=== PATIENT | female | born 1970 | race American Indian/Alaskan Native ===

== ENCOUNTER 2017-05-12 00:37 | Inpatient (IN) | payer MEDICAID ==
[2017-05-12 00:37] VITALS: BMI 40.7
--- NOTE | 2017-05-12 00:48 | C.PDOC ---
History Of Present Illness The patient presents to the ED for evaluation of chest pain which began while she was reading on her phone earlier today. Patient took one 325mg tablet of Aspirin prior to arrival. She is able to speak in complete sentences and denies shortness of breath, palpitations, nausea, vomiting, extremity numbness/ weakness at this time. Time Seen by Provider: 05/12/17 00:48 History Per: Patient History/Exam Limitations: no limitations Onset/Duration Of Symptoms: Hrs Current Symptoms Are (Timing): Still Present Severity: Moderate Pain Scale Rating Of: 3 Quality: Dull, Aching, "Pain" Associated Symptoms: denies: Nausea Modifying Factors: None Exacerbating Factors: None Alleviating Factors: None Recent travel outside of the [place]: No Additional History Per: Patient Past Medical History Reviewed: Historical Data, Nursing Documentation, Vital Signs Vital Signs: Last Vital Signs Temp 98.2 F 05/12/17 00:54 Pulse 98 H 05/12/17 01:00 Resp 20 05/12/17 00:54 BP 135/95 H 05/12/17 01:00 Pulse Ox 98 05/12/17 01:51 - Medical History PMH: Anxiety, Arthritis (knees), Bipolar Disorder (???), COPD, Depression, Deep Vein Thrombosis (VC filter 06/25/2014), HIV, HTN, Hyperthyroidism (partial thyroidectomy), Migraine Denies: Chronic Kidney Disease Surgical History: Cholecystectomy - [facility] Procedures PLICATION OF VENA CAVA (06/26/14) Family History: States: No Known Family Hx - Social History Hx Tobacco Use: Yes Hx Alcohol Use: No Hx Substance Use: No - Immunization History Hx Tetanus Toxoid Vaccination: No Hx Influenza Vaccination: Yes Hx Pneumococcal Vaccination: No Review Of Systems Constitutional: Negative for: Fever, Chills Eyes: Negative for: Vision Change ENT: Negative for: Throat Pain Cardiovascular: Positive for: Chest Pain. Negative for: Palpitations Respiratory: Negative for: Cough, Shortness of Breath Gastrointestinal: Negative for: Nausea, Vomiting Genitourinary: Negative for: Dysuria Skin: Negative for: Rash, Lesions, Jaundice, Bruising Neurological: Negative for: Weakness, Numbness Psych: Negative for: Anxiety Physical Exam - Physical Exam Appears: Non-toxic, Other (in moderate distress ) Skin: Warm, Dry Head: Normacephalic Eye(s): bilateral: Normal Inspection Oral Mucosa: Moist Neck: Supple Chest: Symmetrical, No Deformity, No Tenderness Cardiovascular: Rhythm Regular, No Murmur Respiratory: No Rales, No Rhonchi, No Wheezing, Other (speaking in complete sentences ) Gastrointestinal/Abdominal: Soft, No Tenderness, No Guarding, No Rebound, Other (obese) Back: Normal Inspection Extremity: Normal ROM, Pedal Edema (trace ), Capillary Refill (less than 2 seconds ) Extremity: Bilateral: Atraumatic Pulses: Left Dorsalis Pedis: Normal, Right Dorsalis Pedis: Normal Neurological/Psych: Oriented x3 Gait: Steady ED Course And Treatment - Laboratory Results Result Diagrams: 05/12/17 01:02 05/12/17 01:00 ECG: Interpreted By Me, Viewed By Me ECG Rhythm: Sinus Rhythm (93), Nonspecific Changes O2 Sat by Pulse Oximetry: 98 (on RA) Pulse Ox Interpretation: Normal - Radiology CXR: Interpreted by Me, Viewed By Me CXR Interpretation: No: Infiltrates, Fracture, Pnemothorax Progress Note: Bloodwork, CXR, EKG, UA ordered and reviewed. Aspirin PO administered. Disposition Discussed With : Emilio Barney [facility] took [facility] care at 1;54 AM Counseled Patient/Family Regarding: Studies Performed, Diagnosis - Disposition Disposition: HOSPITALIZED Disposition Time: 00:48 Condition: FAIR - POA Present On Arrival: Poor Glycemic Control - Clinical Impression Clinical Impression: Chest pain - Scribe Statement The provider has reviewed the documentation as recorded by the Scribe (Rossy Carranza) Provider Attestation: All medical record entries made by the Scribe were at my direction and personally dictated by me. I have reviewed the chart and agree that the record accurately reflects my personal performance of the history, physical exam, medical decision making, and the department course for this patient. I have also personally directed, reviewed, and agree with the discharge instructions and disposition. Decision To Admit - Pt Status Changed To: Hospital Disposition Of: Inpatient - Admit Certification Admit to Inpatient:: After my assessment, the patient will require hospitalization for at least two midnights. This is because of the severity of symptoms shown, intensity of services needed, and/or the medical risk in this patient being treated as an outpatient. - InPatient: Physician Admission Certification: I certify that this patient requires 2 or more midnights of care for the following reason:: After my assessment, the patient will require hospitalization for at least two midnights. This is because of the severity of symptoms shown, intensity of services needed, and/or the medical risk in this patient being treated as an outpatient. - . Bed Request Type: Telemetry Admitting Physician: Emilio Barney Patient Diagnosis: Chest pain
[2017-05-12] MEDS ORDERED: Aspirin 325 mg EC Tablets PO STA (00:49)
[2017-05-12 01:12] LABS: INR 1.1
[2017-05-12 01:17] LABS: BASO # 0.1 K/uL (0.0-0.2); BASO % 1.3 % (0.0-2.0); EOS # 0.1 K/uL (0.0-0.7); EOS % 1.3 % (0.0-4.0); LYMPH # 1.3 K/uL (1.0-4.3); LYMPH % 22.3 % (20.0-40.0); MEAN CORPUSCULAR HEMOGLOBIN 22.4 pg (27.0-31.0); MEAN PLATELET VOLUME 8.6 fL (7.2-11.7); MONO # 0.4 K/uL (0.0-0.8); MONO % 7.2 % (0.0-10.0); NEUT # 3.9 K/uL (1.8-7.0); NEUT % 67.9 % (50.0-75.0); NRBC % 0.6 % (0.0-2.0); RBC 5.06 Mil/uL (3.80-5.20); RED CELL DISTRIBUTION WIDTH 26.1 % (11.5-14.5); WHITE BLOOD COUNT 5.8 K/uL (4.8-10.8)
[2017-05-12 01:18] LABS: ALBUMIN 3.3 g/dL (3.5-5.0); ALT/SGPT 22 U/L (9-52); AST/SGOT 20 U/L (14-36); BLOOD UREA NITROGEN 12 mg/dL (7-17); CALCIUM 8.9 mg/dl (8.6-10.4); GFR AFRICAN-AMERICAN > 60; GFR NON-AFRICAN AMERICAN > 60
[2017-05-12 01:18] LABS: HEMOGLOBIN 11.3 g/dL (11.0-16.0); MEAN CELL VOLUME 72.3 fL (81.0-99.0)
[2017-05-12 01:29] LABS: B-TYPE NATRIURETIC PEPTIDE 201 pg/mL (0-450)
[2017-05-12 01:30] LABS: ALB/GLOB RATIO 0.8 (1.0-2.1)
[2017-05-12 06:17] LABS: HCG,QUALITATIVE URINE NEGATIVE (NEGATIVE); SQUAMOUS EPITHIAL 1 /hpf (0-5); URINE BACTERIA MOD (<OCC); URINE BILIRUBIN NEGATIVE (NEGATIVE); URINE BLOOD NEGATIVE (NEGATIVE); URINE CLARITY Hazy (Clear); URINE COLOR Amber (YELLOW); URINE GLUCOSE (UA) NORMAL (Normal); URINE LEUKOCYTE ESTERASE NEG Leu/uL (Negative); URINE NITRATE NEGATIVE (NEGATIVE); URINE PROTEIN 3+ mg/dL (NEGATIVE)
--- NOTE | 2017-05-12 11:48 | RAD ---
HISTORY: chest pain COMPARISON: Chest x-ray performed 06/25/14 TECHNIQUE: Chest, one view. FINDINGS: Examination limited by habitus and hypoinflation. LUNGS: Moderate interstitial prominence may reflect infection or edema. Question small bilateral pleural effusions versus soft tissue attenuation. No definite pneumothorax. Please note that chest x-ray has limited sensitivity for the detection of pulmonary masses. CARDIOVASCULAR: Cardiomegaly. OSSEOUS STRUCTURES: No acute osseous abnormality is detected. VISUALIZED UPPER ABDOMEN: Unremarkable. OTHER FINDINGS: None. IMPRESSION: Moderate interstitial prominence may reflect infection or edema. Question small bilateral pleural effusions versus soft tissue attenuation. Cardiomegaly.
[2017-05-12] MEDS: Odefsey 200mg/25mg/25mg PO SCH (12:00)
[2017-05-12] MEDS ORDERED: Odefsey 200mg/25mg/25mg PO SCH (12:00)
[2017-05-12 12:53] LABS: CK-MB 1.82 ng/mL (0.0-3.38)
[2017-05-12 13:03] LABS: TROPONIN I 0.498 ng/mL (0.00-0.120)
--- NOTE | 2017-05-12 15:40 | CP.PCM.PN ---
Subjective - Date & Time of Evaluation Date of Evaluation: 05/12/17 Time of Evaluation: 15:38 - Subjective Subjective: PT SEEN IN ICU BED SLEEPING, AROUSABLE. NO C/O CP OR SOB. OOB TO CHAIR AND COMFORTABLE. NOTIFIED DR. JURADO OF + [facility] ([facility]; FIRST [facility]G). CONSULT WITH DR. CANO REQUESTED. I NOTIFIED DR. CANO AND HE IS AWARE; WILL SEE PT. THIRD PRISCILA ORDERED FOR THIS EVENING. NO FURTHER ORDERS. PT TO BE SEEN BY DR. JURADO DURING HIS ROUNDS. Objective - Vital Signs/Intake and Output Vital Signs (last 24 hours): Temp Pulse Resp BP Pulse Ox 98.8 F 86 20 125/85 97 05/12/17 06:15 05/12/17 10:00 05/12/17 06:15 05/12/17 06:15 05/12/17 05:28 Intake and Output: 05/12/17 05/12/17 06:59 18:59 Intake Total 0 Output Total 0 Balance 0 - Medications Medications: Current Medications Heparin Sodium (Porcine) (Heparin) 5,000 units SC Q12 [facility] Last Admin: 05/12/17 10:52 Dose: 5,000 units Home Med (Patient's Own Medication) 1 tab PO DAILY [facility] Last Admin: 05/12/17 12:00 Dose: 1 tab - Labs Labs: 05/12/17 01:02 05/12/17 01:00 PT 12.0 SECONDS (9.7-12.2) 05/12/17 01:02 INR 1.1 05/12/17 01:02 APTT 24 SECONDS (21-34) 05/12/17 01:02
[2017-05-12 16:02] LABS: CK-MB 1.84 ng/mL (0.0-3.38); TROPONIN I 0.6 ng/mL (0.00-0.120)
--- NOTE | 2017-05-12 20:57 | CP.PCM.HP ---
History of Present Illness - History of Present Illness History of Present Illness: CC: Chest pain HPI: Pt is a 47 yo female who presented to ED by ambulance transport. Pt called 911 and was transported to [facility] for mid-sternal chest pain that patient reports felt like something sitting on her chest. This was also accompanied by numbness and tingling down the left arm, but also felt on the R arm. Pt says the symptom started upon lying down to sleep for the night, when she was using her phone checking her messages. Pt's decided to call 911, and said that the pain did not subside until after the EMS were there and she had been given a dose of aspirin to chew. Pt subsequently transported by ambulance to [facility] for evaluation. Present on Admission - Present on Admission Any Indicators Present on Admission: Yes History of DVT/PE: Yes History of Uncontrolled Diabetes: No Urinary Catheter: No Decubitus Ulcer Present: No History Surgical Site Infection Following: None Review of Systems - Review of Systems Systems not reviewed;Unavailable: Acuity of Condition - Constitutional Constitutional: absent: As Per HPI, Anorexia, Chills, Daytime Sleepiness, Excessive Sweating, Fatigue, Fever, Frequent Falls, Headache, Increased Appetite , Lethargy, Malaise, Night Sweats, Snoring, Sleep Apnea, Weight Gain, Weight Loss, Weakness, Other - EENT Eyes: absent: As Per HPI, Blind Spots, Blurred Vision, Change in Vision, Decreased Night Vision, Diplopia, Discharge, Dry Eye, Exophthalmos, Floaters, Irritation, Itchy Eyes, Loss of Peripheral Vision, Pain, Photophobia, Requires Corrective Lenses, Sees Flashes, Spots in Vision, Tunnel Vision, Other Visual Disturbances, Loss of Vision, Other Ears: absent: As Per HPI, Decreased Hearing, Ear Discharge, Ear Pain, Tinnitus, Abnormal Hearing, Disequilibrium, Dizziness, Other Nose/Mouth/Throat: absent: As Per HPI, Epistaxis, Nasal Congestion, Nasal Discharge, Nasal Obstruction, Nasal Trauma, Nose Pain, Post Nasal Drip, Sinus Pain, Sinus Pressure, Bleeding Gums, Change in Voice, Dental Pain, Dry Mouth, Dysphagia, Halitosis, Hoarsness, Lip Swelling, Mouth Lesions, Mouth Pain, Odynophagia, Sore Throat, Throat Swelling, Tongue Swelling, Facial Pain, Neck Pain, Neck Mass, Other - Breasts Breasts: absent: As Per HPI, Change in Shape, Mass, Pain, Nipple Discharge, Nipple Inversion, Skin Changes, Swelling, Other - Cardiovascular Cardiovascular: absent: As Per HPI, Acrocyanosis, Chest Pain, Chest Pain at Rest , Chest Pain with Activity, Claudication, Diaphoresis, Dyspnea, Dyspnea on Exertion, Edema, Irregular Heart Rhythm, Pain Radiating to Arm/Neck/Jaw, Leg Edema, Leg Ulcers, Lightheadedness, Orthopnea, Palpitations, Paroxysmal Nocturnal Dyspnea, Pedal Edema, Radiating Pain, Rapid Heart Rate, Slow Heart Rate, Syncope, Other - Respiratory Respiratory: absent: As Per HPI, Cough, Dyspnea, Hemoptysis, Dyspnea on Exertion , Wheezing, Snoring, Stridor, Pain on Inspiration, Chest Congestion, Excessive Mucous Production, Change in Mucous Color, Pain with Coughing, Other - Gastrointestinal Gastrointestinal: absent: As Per HPI, Abdominal Pain, Belching, Bloating, Change in Bowel Habits, Change in Stool Character, Coffee Ground Emesis, Constipation, Cramping, Diarrhea, Dyspepsia, Dysphagia, Early Satiety, Excessive Flatus, Fecal Incontinence, Heartburn, Hematemesis, Hematochezia, Loose Stools, Melena, Nausea, Odynophagia, Temesmus, Vomiting, Other - Reproductive: Female Reproductive:Female: absent: As Per HPI, Amenorrhea, Amenorrhea/ Control, Currently Menstual, Cycle <21 Days, Cycle >35 Days, Cycle Variable, Menses 1-7 Days, Menses >/= 8 Days, Menses Variable, Cycle > 4 Weeks Between, No Menses for 6 Months, Heavy Menses, Light Menses, Normal Menses, Spotting Between Cycles , S/P Hysterectomy, Menopausal, Post Menopausal, Premenarche, Abnormal Vaginal Bleeding, Dysmenorrhea, Dyspareunia, Genital Lesions, Genital Pruritis, Pelvic Pain, Prolapse Symptoms, Sexual Dysfunction, Vaginal Discharge, Vaginal Dryness , Vaginal Odor, Vaginal Pruritis, Other - Menstruation Menstruation: absent: As Per HPI, Amenorrhea, Amenorrhea/ Control, Currently Menstual, Cycle <21 Days, Cycle >35 Days, Cycle Variable, Menses 1-7 Days, Menses >/= 8 Days, Menses Variable, Cycle > 4 Weeks Between, No Menses for 6 Months, Heavy Menses, Light Menses, Normal Menses, Spotting Between Cycles , S/P Hysterectomy, Menopausal, Post Menopausal, Premenarche, Abnormal Vaginal Bleeding, Dysmenorrhea, Other - Musculoskeletal Musculoskeletal: absent: As Per HPI, Abnormal Gait, Arthralgias, Atrophy, Back Pain, Deformity, Joint Swelling, Limited Range of Motion, Loss of Height, Muscle Cramps, Muscle Weakness, Myalgias, Neck Pain, Numbness, Radiating Pain into Limb, Stiffness, Tingling, Other - Integumentary Integumentary: absent: As Per HPI, Acne, Alopecia, Bleeding Lesions, Change in Hair, Change in Nails, Change in Pigmentation, Changing Lesions, Dry Skin, Erythema, Furuncle, Hirsutism, Lesions, New Lesions, Non-Healing Lesions, Photosensitivity, Pruritus, Rash, Skin Pain, Skin Ulcer, Sores, Striae, Swelling , Unusual Bruising, Wounds, Jaundice, Other - Neurological Neurological: absent: As Per HPI, Abnormal Gait, Abnormal Hearing, Abnormal Movements, Abnormal Speech, Behavioral Changes, Burning Sensations, Confusion, Convulsions, Disequilibrium, Dizziness, Numbness, Focal Weakness, Frequent Falls , Headaches, Lack of Coordination, Loss of Vision, Memory Loss, Paresthesias, Radicular Pain, Restless Legs, Sensory Deficit, Syncope, Tingling, Tremor, Vertigo, Weakness, Other Visual Disturbances, Other - Psychiatric Psychiatric: absent: As Per HPI, Abnormal Sleep Pattern, Anhedonia, Anxiety, Auditory Hallucinations, Behavioral Changes, Change in Appetite, Change in Libido, Confusion, Depression, Difficulty Concentrating, Hallucinations, Homicidal Ideation, Hopelessness, Irritability, Memory Loss, Mood Swings, Panic Attacks, Paranoia, Suicidal Ideation, Visual Hallucinations, Tactile Hallucinations, Other Additional comments: history of depression Past Patient History - Infectious Disease Hx of Infectious Diseases: None - Tetanus Immunizations Tetanus Immunization: Unknown - Past Medical History & Family History Past Medical History?: Yes - Past Social History Smoking Status: Heavy Smoker > 10 Cigarettes Daily Chewing Tobacco Use: No Cigar Use: No Occupation: disabled, 2ndry to major depression Alcohol: Occasional Drugs: Denies - CARDIAC Hx Cardiac Disorders: Yes Hx Hypertension: Yes - PULMONARY Hx Respiratory Disorders: Yes Hx Chronic Obstructive Pulmonary Disease (COPD): Yes - NEUROLOGICAL Hx Neurological Disorder: Yes Hx Migraine: Yes - HEENT Hx HEENT Problems: No - RENAL Hx Chronic Kidney Disease: No - ENDOCRINE/METABOLIC Hx Endocrine Disorders: Yes Hx Hyperthyroidism: Yes (partial thyroidectomy) - HEMATOLOGICAL/ONCOLOGICAL Hx Blood Disorders: Yes Hx Anemia: Yes Hx Human Immunodeficiency Virus (HIV): Yes - INTEGUMENTARY Hx Dermatological Problems: No - MUSCULOSKELETAL/RHEUMATOLOGICAL Hx Musculoskeletal Disorders: Yes Hx Arthritis: Yes Hx Falls: No - GASTROINTESTINAL Hx Gastrointestinal Disorders: Yes Hx Gastritis: Yes Other/Comment: thrush in mouth, which provided clue to HIV testing - GENITOURINARY/GYNECOLOGICAL Hx Genitourinary Disorders: No - PSYCHIATRIC Hx Psychophysiologic Disorder: Yes Hx Anxiety: Yes Hx Bipolar Disorder: Yes (???) Hx Depression: Yes Hx Substance Use: No - SURGICAL HISTORY Hx Surgeries: Yes Hx Cholecystectomy: Yes - ANESTHESIA Hx Anesthesia: Yes Hx Anesthesia Reactions: No Hx Malignant Hyperthermia: No Meds Allergies/Adverse Reactions: Allergies Allergy/AdvReac Type Severity Reaction Status Date / Time SEA SALT Allergy Intermediate RASH Uncoded 05/12/17 01:03 Physical Exam - Constitutional Appears: No Acute Distress - Head Exam Head Exam: NORMAL INSPECTION - Eye Exam Eye Exam: Normal appearance Additional comments: + periorbital edema at times - ENT Exam ENT Exam: Normal Exam - Neck Exam Neck exam: Positive for: Normal Inspection - Cardiovascular Exam Cardiovascular Exam: RRR - GI/Abdominal Exam GI & Abdominal Exam: Normal Bowel Sounds - Rectal Exam Rectal Exam: Deferred - Extremities Exam Extremities exam: Positive for: normal inspection - Psychiatric Exam Psychiatric exam: Flat Affect, Normal Mood - Skin Skin Exam: Dry, Normal Color, Warm Results - Vital Signs Recent Vital Signs: Last Vital Signs Temp 97.6 F 05/12/17 16:00 Pulse 83 05/12/17 18:00 Resp 18 05/12/17 16:00 BP 125/81 05/12/17 16:00 Pulse Ox 99 05/12/17 16:00 - Labs Result Diagrams: 05/13/17 06:36 05/13/17 06:36 Labs: Laboratory Results - last 24 hr 05/12/17 05/12/17 05/12/17 01:00 01:02 01:02 WBC 5.8 RBC 5.06 Hgb 11.3 D Hct 36.6 MCV 72.3 L D MCH 22.4 L MCHC 31.0 L RDW 26.1 H Plt Count 157 MPV 8.6 Neut % (Auto) 67.9 Lymph % (Auto) 22.3 [place] % (Auto) 7.2 Eos % (Auto) 1.3 Baso % (Auto) 1.3 Neut # 3.9 Lymph # 1.3 [place] # 0.4 Eos # 0.1 Baso # 0.1 PT 12.0 INR 1.1 APTT 24 Sodium 134 Potassium 3.7 Chloride 99 Carbon Dioxide 31 H Anion Gap 8 L BUN 12 Creatinine 0.5 L Est GFR ( Amer) > 60 Est GFR (Non-Af Amer) > 60 Random Glucose 158 H Calcium 8.9 Total Bilirubin 0.4 AST 20 ALT 22 Alkaline Phosphatase 83 Total Creatine Kinase CK-MB (Mass) Troponin I 0.0480 NT-Pro-B Natriuret Pep 201 Total Protein 7.6 Albumin 3.3 L Globulin 4.2 H Albumin/Globulin Ratio 0.8 L Urine Color Urine Clarity Urine pH Ur Specific Bascom Urine Protein Urine Glucose (UA) Urine Ketones Urine Blood Urine Nitrate Urine Bilirubin Urine Urobilinogen Ur Leukocyte Esterase Urine WBC (Auto) Urine RBC (Auto) Ur Squamous Epith Cells Urine Bacteria Urine HCG, Qual 05/12/17 05/12/17 05/12/17 06:03 10:04 15:12 WBC RBC Hgb Hct MCV MCH MCHC RDW Plt Count MPV Neut % (Auto) Lymph % (Auto) [place] % (Auto) Eos % (Auto) Baso % (Auto) Neut # Lymph # [place] # Eos # Baso # PT INR APTT Sodium Potassium Chloride Carbon Dioxide Anion Gap BUN Creatinine Est GFR ( Amer) Est GFR (Non-Af Amer) Random Glucose Calcium Total Bilirubin AST ALT Alkaline Phosphatase Total Creatine Kinase 56 57 CK-MB (Mass) 1.82 1.84 Troponin I 0.4980 H* 0.6000 H* NT-Pro-B Natriuret Pep Total Protein Albumin Globulin Albumin/Globulin Ratio Urine Color Cinthia Urine Clarity Hazy Urine pH 6.0 Ur Specific Bascom 1.017 Urine Protein 3+ H Urine Glucose (UA) Normal Urine Ketones Negative Urine Blood Negative Urine Nitrate Negative Urine Bilirubin Negative Urine Urobilinogen 4.0 H Ur Leukocyte Esterase Neg Urine WBC (Auto) 5 Urine RBC (Auto) < 1 Ur Squamous Epith Cells 1 Urine Bacteria Mod H Urine HCG, Qual Negative Assessment & Plan (1) Chest pain Assessment and Plan: Serial troponins and cardiac enzymes, r/o coronary syndrome Status: Acute (2) Abnormal CXR (chest x-ray) Assessment and Plan: may be occult issue of pulmonary system vs cardiac vs both. Will obtain PA and Lat view as well as Cardio consult above. Status: Acute (3) Deep venous thrombosis of lower extremity Assessment and Plan: histoorical, though non-compliant at times with medication. there have been episodes where pt does not take her anticoagulant Status: Acute (4) HIV (human immunodeficiency virus infection) Assessment and Plan: On Complera and pt folowing with ID, Dr. Schaefer. Appears complant with treatment Status: Acute
--- NOTE | 2017-05-12 22:32 | CP.PCM.CON ---
History of Present Illness - History of Present Illness History of Present Illness: 47 F admitted for chest pain Troponin positive Anticoagulation as per ACS protocol Will evaluate for cath in am Check ECHO The patient presents to for evaluation of chest pain which began while she was reading on her phone earlier today. Patient took one 325mg tablet of Aspirin prior to arrival. She is able to speak in complete sentences and denies shortness of breath, palpitations, nausea, vomiting, extremity numbness/ weakness at this time. - Medical History PMH: Anxiety, Arthritis (knees), Bipolar Disorder (???), COPD, Depression, Deep Vein Thrombosis (VC filter 06/25/2014), HIV, HTN, Hyperthyroidism (partial thyroidectomy), Migraine Denies: Chronic Kidney Disease Surgical History: Cholecystectomy - [facility] Procedures PLICATION OF VENA CAVA (06/26/14) Family History: States: No Known Family Hx - Social History Hx Tobacco Use: Yes Hx Alcohol Use: No Hx Substance Use: No - Immunization History Hx Tetanus Toxoid Vaccination: No Hx Influenza Vaccination: Yes Hx Pneumococcal Vaccination: No Review Of Systems Constitutional: Negative for: Fever, Chills Eyes: Negative for: Vision Change ENT: Negative for: Throat Pain Cardiovascular: Positive for: Chest Pain. Negative for: Palpitations Respiratory: Negative for: Cough, Shortness of Breath Gastrointestinal: Negative for: Nausea, Vomiting Genitourinary: Negative for: Dysuria Skin: Negative for: Rash, Lesions, Jaundice, Bruising Neurological: Negative for: Weakness, Numbness Psych: Negative for: Anxiety Physical Exam - Physical Exam Appears: Non-toxic, Other (in moderate distress ) Skin: Warm, Dry Head: Normacephalic Eye(s): bilateral: Normal Inspection Oral Mucosa: Moist Neck: Supple Chest: Symmetrical, No Deformity, No Tenderness Cardiovascular: Rhythm Regular, No Murmur Respiratory: No Rales, No Rhonchi, No Wheezing, Other (speaking in complete sentences ) Gastrointestinal/Abdominal: Soft, No Tenderness, No Guarding, No Rebound, Other (obese) Back: Normal Inspection Extremity: Normal ROM, Pedal Edema (trace ), Capillary Refill (less than 2 seconds ) Extremity: Bilateral: Atraumatic Pulses: Left Dorsalis Pedis: Normal, Right Dorsalis Pedis: Normal Neurological/Psych: Oriented x3 Gait: Steady Past Patient History - Infectious Disease Hx of Infectious Diseases: None - Past Medical History & Family History Past Medical History?: Yes - Past Social History Smoking Status: Heavy Smoker > 10 Cigarettes Daily - CARDIAC Hx Cardiac Disorders: Yes Hx Hypertension: Yes - PULMONARY Hx Respiratory Disorders: Yes Hx Chronic Obstructive Pulmonary Disease (COPD): Yes - NEUROLOGICAL Hx Neurological Disorder: Yes Hx Migraine: Yes - HEENT Hx HEENT Problems: No - RENAL Hx Chronic Kidney Disease: No - ENDOCRINE/METABOLIC Hx Endocrine Disorders: Yes Hx Hyperthyroidism: Yes (partial thyroidectomy) - HEMATOLOGICAL/ONCOLOGICAL Hx Blood Disorders: Yes Hx Human Immunodeficiency Virus (HIV): Yes - INTEGUMENTARY Hx Dermatological Problems: No - MUSCULOSKELETAL/RHEUMATOLOGICAL Hx Musculoskeletal Disorders: Yes Hx Arthritis: Yes Hx Falls: No - GASTROINTESTINAL Hx Gastrointestinal Disorders: No Other/Comment: thrush in mouth, which provided clue to HIV testing - GENITOURINARY/GYNECOLOGICAL Hx Genitourinary Disorders: No - PSYCHIATRIC Hx Psychophysiologic Disorder: Yes Hx Anxiety: Yes Hx Bipolar Disorder: Yes (???) Hx Depression: Yes Hx Substance Use: No - SURGICAL HISTORY Hx Surgeries: Yes Hx Cholecystectomy: Yes - ANESTHESIA Hx Anesthesia: Yes Hx Anesthesia Reactions: No Hx Malignant Hyperthermia: No Meds Allergies/Adverse Reactions: Allergies Allergy/AdvReac Type Severity Reaction Status Date / Time SEA SALT Allergy Intermediate RASH Uncoded 05/12/17 01:03 - Medications Medications: Current Medications Aspirin (Ecotrin) 81 mg PO DAILY [facility] Clopidogrel Bisulfate (Plavix) 75 mg PO DAILY [facility] Enoxaparin Sodium (Lovenox) 80 mg SC Q12 [facility] Famotidine (Pepcid) 20 mg PO DAILY [facility] Home Med (Patient's Own Medication) 1 tab PO DAILY [facility] Last Admin: 05/12/17 12:00 Dose: 1 tab Rosuvastatin Calcium (Crestor) 2.5 mg PO HS [facility] Results - Vital Signs Recent Vital Signs: Last Vital Signs Temp 97.6 F 05/12/17 16:00 Pulse 83 05/12/17 18:00 Resp 18 05/12/17 16:00 BP 125/81 05/12/17 16:00 Pulse Ox 99 05/12/17 16:00 - Labs Result Diagrams: 05/13/17 06:36 05/13/17 06:36 Labs: Laboratory Results - last 24 hr 05/12/17 05/12/17 05/12/17 01:00 01:02 01:02 WBC 5.8 RBC 5.06 Hgb 11.3 D Hct 36.6 MCV 72.3 L D MCH 22.4 L MCHC 31.0 L RDW 26.1 H Plt Count 157 MPV 8.6 Neut % (Auto) 67.9 Lymph % (Auto) 22.3 [place] % (Auto) 7.2 Eos % (Auto) 1.3 Baso % (Auto) 1.3 Neut # 3.9 Lymph # 1.3 [place] # 0.4 Eos # 0.1 Baso # 0.1 PT 12.0 INR 1.1 APTT 24 Sodium 134 Potassium 3.7 Chloride 99 Carbon Dioxide 31 H Anion Gap 8 L BUN 12 Creatinine 0.5 L Est GFR ( Amer) > 60 Est GFR (Non-Af Amer) > 60 Random Glucose 158 H Calcium 8.9 Total Bilirubin 0.4 AST 20 ALT 22 Alkaline Phosphatase 83 Total Creatine Kinase CK-MB (Mass) Troponin I 0.0480 NT-Pro-B Natriuret Pep 201 Total Protein 7.6 Albumin 3.3 L Globulin 4.2 H Albumin/Globulin Ratio 0.8 L Urine Color Urine Clarity Urine pH Ur Specific [place] Urine Protein Urine Glucose (UA) Urine Ketones Urine Blood Urine Nitrate Urine Bilirubin Urine Urobilinogen Ur Leukocyte Esterase Urine WBC (Auto) Urine RBC (Auto) Ur Squamous Epith Cells Urine Bacteria Urine HCG, Qual 05/12/17 05/12/17 05/12/17 06:03 10:04 15:12 WBC RBC Hgb Hct MCV MCH MCHC RDW Plt Count MPV Neut % (Auto) Lymph % (Auto) [place] % (Auto) Eos % (Auto) Baso % (Auto) Neut # Lymph # [place] # Eos # Baso # PT INR APTT Sodium Potassium Chloride Carbon Dioxide Anion Gap BUN Creatinine Est GFR ( Amer) Est GFR (Non-Af Amer) Random Glucose Calcium Total Bilirubin AST ALT Alkaline Phosphatase Total Creatine Kinase 56 57 CK-MB (Mass) 1.82 1.84 Troponin I 0.4980 H* 0.6000 H* NT-Pro-B Natriuret Pep Total Protein Albumin Globulin Albumin/Globulin Ratio Urine Color [place] Urine Clarity Hazy Urine pH 6.0 Ur Specific [place] 1.017 Urine Protein 3+ H Urine Glucose (UA) Normal Urine Ketones Negative Urine Blood Negative Urine Nitrate Negative Urine Bilirubin Negative Urine Urobilinogen 4.0 H Ur Leukocyte Esterase Neg Urine WBC (Auto) 5 Urine RBC (Auto) < 1 Ur Squamous Epith Cells 1 Urine Bacteria Mod H Urine HCG, Qual Negative Assessment & Plan - Assessment and Plan (Free Text) Assessment: 47 F admitted with Chest pain Positive Trops PE vs. Non STEMI Anticogulation Check ECHO and CTA If No PE will schedule patient for cardiac cath
[2017-05-12] MEDS: Rosuvastatin Calcium 2.5 mg Tab PO SCH (22:36)
[2017-05-12] MEDS: Enoxaparin 80 mg Syringe SC SCH (22:37)
[2017-05-13] MEDS ORDERED: Albuterol-Ipratrop 3 mg / 0.5 (3 ml) UD INH STA (06:20)
[2017-05-13 06:48] LABS: HEMOGLOBIN 11.1 g/dL (11.0-16.0); MEAN CELL VOLUME 72.6 fL (81.0-99.0); MEAN CORPUSCULAR HEMOGLOBIN 22.9 pg (27.0-31.0); MEAN CORPUSCULAR HGB CONC 31.5 g/dL (33.0-37.0); MEAN PLATELET VOLUME 9.3 fL (7.2-11.7); RBC 4.84 Mil/uL (3.80-5.20); RED CELL DISTRIBUTION WIDTH 26.1 % (11.5-14.5); WHITE BLOOD COUNT 5.7 K/uL (4.8-10.8)
[2017-05-13 07:03] LABS: BLOOD UREA NITROGEN 11 mg/dL (7-17); CALCIUM 9.2 mg/dl (8.6-10.4); GFR AFRICAN-AMERICAN > 60; GFR NON-AFRICAN AMERICAN > 60; HDL CHOLESTEROL 26 mg/dL (30-70)
[2017-05-13 07:11] LABS: LDL CHOLESTEROL 100 mg/dL (0-129)
[2017-05-13 07:14] LABS: CK-MB 1.06 ng/mL (0.0-3.38)
[2017-05-13] MEDS: Enoxaparin 80 mg Syringe SC SCH ×2 (09:04→21:32)
[2017-05-13] MEDS: Odefsey 200mg/25mg/25mg PO SCH (09:04)
--- NOTE | 2017-05-13 09:31 | RAD ---
Chest x-ray two views History: Interstitial prominence. Comparison: 05/12/2017 Findings: Prominent diffuse increased interstitial markings suggestive for moderate venous congestion versus interstitial infiltrates. Clinical correlation. Right hilar prominence. Cardiomegaly. Tortuous ectatic aorta. IVC filter in place. Impression: Prominent diffuse increased interstitial markings suggestive for moderate venous congestion versus interstitial infiltrates. Clinical correlation. Right hilar prominence. Cardiomegaly.
--- NOTE | 2017-05-13 11:59 | CARD ---
APPROVED REPORT EKG Measurement Heart [id number] <Conclusion> Normal sinus rhythm Possible Left atrial enlargement Left axis deviation Nonspecific T wave abnormality Abnormal ECG
[2017-05-13] MEDS ORDERED: Iodixanol 320 MG/ML 100 ML BOTTLE IV ONE (12:02)
--- NOTE | 2017-05-13 13:47 | CT ---
PROCEDURE: CT Chest with contrast (Pulmonary Angiogram) HISTORY: hx of dvt; chest pain COMPARISON: None available. TECHNIQUE: Axial computed tomography images were obtained of the chest in the pulmonary arterial phase of enhancement. Coronal and sagittal reformatted images were created and reviewed. Intravenous contrast dose: Visipaque 320 100 mL Radiation dose: Total exam DLP = 660 mGy-cm. This CT exam was performed using one or more of the following dose reduction techniques: Automated exposure control, adjustment of the mA and/or kV according to patient size, and/or use of iterative reconstruction technique. FINDINGS: PULMONARY ARTERIES: No pulmonary embolism. Prominent main pulmonary artery pulmonary arterial hypertension is a consideration. AORTA: No acute findings. No thoracic aortic aneurysm. LUNGS: Bilateral mosaic pattern of lung attenuation Benign-appearing 2 mm pleural-based nodule right lung base axis series 4, image 64 noted. Right middle lobe 4 mm ground-glass or semi-solid nodule benign-appearing. No suspicious pulmonary or pulmonary consolidation. . PLEURAL SPACES: Unremarkable. No effusion or pneuomothorax. HEART: cardiomegaly. No significant pericardial effusion. LYMPH NODES: Mediastinal and hilar extensive lymphadenopathy. Bilateral axillary lymph nodes. The left fried peritracheal soft tissue density with right rib mediastinal deviation consistent with superior mediastinal lymphadenopathy here. Concomitant thyroid goiter substernal also possible BONES, CHEST WALL: Unremarkable. No fracture or destructive lesion OTHER FINDINGS: IVC filter present . Hiatal hernia IMPRESSION: No pulmonary emboli. Pulmonary arterial hypertension possible Extensive hilar and mediastinal lymphadenopathy in this HIV positive patient. Sub cm benign appearing right basal pulmonary nodules (2).
[2017-05-13] MEDS: Albuterol-Ipratrop 3 mg / 0.5 (3 ml) UD INH SCH ×2 (13:49→21:11)
--- NOTE | 2017-05-13 19:42 | CP.PCM.PN ---
Subjective - Date & Time of Evaluation Date of Evaluation: 05/13/17 Time of Evaluation: 19:41 - Subjective Subjective: Patient seen and evaluated this morning Chest pain resolved Review Of Systems Constitutional: Negative for: Fever, Chills Eyes: Negative for: Vision Change ENT: Negative for: Throat Pain Cardiovascular: Positive for: Chest Pain. Negative for: Palpitations Respiratory: Negative for: Cough, Shortness of Breath Gastrointestinal: Negative for: Nausea, Vomiting Genitourinary: Negative for: Dysuria Skin: Negative for: Rash, Lesions, Jaundice, Bruising Neurological: Negative for: Weakness, Numbness Psych: Negative for: Anxiety Physical Exam - Physical Exam Appears: Non-toxic, Other (in moderate distress ) Skin: Warm, Dry Head: Normacephalic Eye(s): bilateral: Normal Inspection Oral Mucosa: Moist Neck: Supple Chest: Symmetrical, No Deformity, No Tenderness Cardiovascular: Rhythm Regular, No Murmur Respiratory: No Rales, No Rhonchi, No Wheezing, Other (speaking in complete sentences ) Gastrointestinal/Abdominal: Soft, No Tenderness, No Guarding, No Rebound, Other (obese) Back: Normal Inspection Extremity: Normal ROM, Pedal Edema (trace ), Capillary Refill (less than 2 seconds ) Extremity: Bilateral: Atraumatic Pulses: Left Dorsalis Pedis: Normal, Right Dorsalis Pedis: Normal Neurological/Psych: Oriented x3 Gait: Steady Objective - Vital Signs/Intake and Output Vital Signs (last 24 hours): Temp Pulse Resp BP Pulse Ox 98.0 F 100 H 22 135/85 98 05/13/17 14:00 05/13/17 18:00 05/13/17 14:00 05/13/17 14:00 05/13/17 14:00 Intake and Output: 05/13/17 05/14/17 18:59 06:59 Intake Total 250 Balance 250 - Medications Medications: Current Medications Albuterol/Ipratropium (Duoneb 3 Mg/0.5 Mg (3 Ml) Ud) 3 ml INH RQ6 [facility] Last Admin: 05/13/17 13:49 Dose: Not Given Aspirin (Ecotrin) 81 mg PO DAILY [facility] Last Admin: 05/13/17 09:04 Dose: 81 mg Clopidogrel Bisulfate (Plavix) 75 mg PO DAILY [facility] Last Admin: 05/13/17 09:04 Dose: 75 mg Enoxaparin Sodium (Lovenox) 80 mg SC Q12 [facility] Last Admin: 05/13/17 09:04 Dose: Not Given Famotidine (Pepcid) 20 mg PO DAILY [facility] Last Admin: 05/13/17 09:04 Dose: 20 mg Home Med (Patient's Own Medication) 1 tab PO DAILY [facility] Last Admin: 05/13/17 09:04 Dose: 1 tab Rosuvastatin Calcium (Crestor) 2.5 mg PO HS [facility] Last Admin: 05/12/17 22:36 Dose: 2.5 mg - Labs Labs: 05/13/17 06:36 05/13/17 06:36 PT 12.0 SECONDS (9.7-12.2) 05/12/17 01:02 INR 1.1 05/12/17 01:02 APTT 24 SECONDS (21-34) 05/12/17 01:02 Assessment and Plan - Assessment and Plan (Free Text) Assessment: 1. Non ST elevation ID 2. HIV 3. CTA negative for PE For Cath in am
[2017-05-13] MEDS: Rosuvastatin Calcium 2.5 mg Tab PO SCH (21:32)
--- NOTE | 2017-05-13 23:48 | CP.PCM.PN ---
Subjective - Date & Time of Evaluation Date of Evaluation: 05/13/17 Time of Evaluation: 21:50 - Subjective Subjective: Patient seen at bedside today with conversation on her cardiac status conducted with cardiology this morning. Latter specialty trying to rule out the possibility of a PE and CT angiogram of the chest showed negative results. On the other hand several lesions were found which were intimated by patient's admission chest x-ray. Several nodules were found within the lung substance as well as upper and lower mediastinum. Advised patient of this development and that I had called in both ID, Pulmonary, and Interventional Radiology to help with her case. Patient took the news with equanimity and stoicism and agreed to plan of action presented to her. Objective - Vital Signs/Intake and Output Vital Signs (last 24 hours): Temp Pulse Resp BP Pulse Ox 98.1 F 92 H 18 126/72 98 05/13/17 20:00 05/13/17 21:00 05/13/17 20:00 05/13/17 20:00 05/13/17 14:00 Intake and Output: 05/13/17 05/14/17 18:59 06:59 Intake Total 250 Balance 250 - Medications Medications: Current Medications Albuterol/Ipratropium (Duoneb 3 Mg/0.5 Mg (3 Ml) Ud) 3 ml INH RQ6 [facility] Last Admin: 05/13/17 21:11 Dose: Not Given Aspirin (Ecotrin) 81 mg PO DAILY [facility] Last Admin: 05/13/17 09:04 Dose: 81 mg Clopidogrel Bisulfate (Plavix) 75 mg PO DAILY [facility] Last Admin: 05/13/17 09:04 Dose: 75 mg Enoxaparin Sodium (Lovenox) 80 mg SC Q12 [facility] Last Admin: 05/13/17 21:32 Dose: 80 mg Famotidine (Pepcid) 20 mg PO DAILY [facility] Last Admin: 05/13/17 09:04 Dose: 20 mg Home Med (Patient's Own Medication) 1 tab PO DAILY [facility] Last Admin: 05/13/17 09:04 Dose: 1 tab Rosuvastatin Calcium (Crestor) 2.5 mg PO HS [facility] Last Admin: 05/13/17 21:32 Dose: 2.5 mg - Labs Labs: 05/13/17 06:36 05/13/17 06:36 PT 12.0 SECONDS (9.7-12.2) 05/12/17 01:02 INR 1.1 05/12/17 01:02 APTT 24 SECONDS (21-34) 05/12/17 01:02 - Constitutional Appears: No Acute Distress - Head Exam Head Exam: NORMAL INSPECTION - Eye Exam Eye Exam: Normal appearance - ENT Exam ENT Exam: Normal Exam - Neck Exam Neck Exam: Normal Inspection - Respiratory Exam Respiratory Exam: Clear to Ausculation Bilateral, NORMAL BREATHING PATTERN - Cardiovascular Exam Cardiovascular Exam: REGULAR RHYTHM - GI/Abdominal Exam GI & Abdominal Exam: Soft, Normal Bowel Sounds - Rectal Exam Rectal Exam: Deferred - Extremities Exam Extremities Exam: Normal Inspection - Back Exam Back Exam: NORMAL INSPECTION - Neurological Exam Neurological Exam: Alert, Awake, CN II-XII Intact, Oriented x3 Neuro motor strength exam: Left Upper Extremity: 4, Right Upper Extremity: 4, Left Lower Extremity: 4, Right Lower Extremity: 4 - Psychiatric Exam Psychiatric exam: Flat Affect, Normal Mood - Skin Skin Exam: Dry, Intact, Normal Color, Warm Assessment and Plan (1) ACS (acute coronary syndrome) Assessment & Plan: + troponins, though mild. for possible cardiac cath Status: Acute (2) Abnormal CXR (chest x-ray) Assessment & Plan: repeat PA & Lat CXR with interstitial prominence and hilar lymphadenopathy. Discussed with pt possiblity of infectious etiology vs malignancy. Status: Acute (3) Chest pain Assessment & Plan: appears resolved, will monitor Status: Acute (4) Elevated d-dimer Assessment & Plan: very elevated, may be acute phase reactant elevation and not DIC Status: Acute (5) HIV (human immunodeficiency virus infection) Assessment & Plan: will send for CD4 and viral load tests Status: Acute
[2017-05-14] MEDS: Albuterol-Ipratrop 3 mg / 0.5 (3 ml) UD INH SCH ×4 (01:17→19:41)
[2017-05-14 06:58] LABS: HEMOGLOBIN 11.8 g/dL (11.0-16.0); MEAN CELL VOLUME 72.8 fL (81.0-99.0); MEAN CORPUSCULAR HEMOGLOBIN 22.8 pg (27.0-31.0); MEAN CORPUSCULAR HGB CONC 31.3 g/dL (33.0-37.0); MEAN PLATELET VOLUME 9.3 fL (7.2-11.7); RBC 5.16 Mil/uL (3.80-5.20); WHITE BLOOD COUNT 5.8 K/uL (4.8-10.8)
[2017-05-14 07:03] LABS: PROTHROMBIN TIME 11.4 SECONDS (9.7-12.2)
[2017-05-14 07:42] LABS: BLOOD UREA NITROGEN 13 mg/dL (7-17); GFR AFRICAN-AMERICAN > 60; GFR NON-AFRICAN AMERICAN > 60
[2017-05-14] MEDS ORDERED: Midazolam 2 MG/2 ML VIAL ONE (09:08)
[2017-05-14 09:35] LABS: CALCIUM 9.9 mg/dl (8.6-10.4)
[2017-05-14] MEDS: Enoxaparin 80 mg Syringe SC SCH (10:00)
[2017-05-14] MEDS ORDERED: Lidocaine 2% Inj (20ml) ONE (10:01)
[2017-05-14] MEDS ORDERED: Sodium Chloride 0.45% 1,000 ML IV SCH (11:00)
[2017-05-14] MEDS: Odefsey 200mg/25mg/25mg PO SCH (11:49)
--- NOTE | 2017-05-14 12:27 | CP.PCM.PN ---
Subjective - Date & Time of Evaluation Date of Evaluation: 05/14/17 Time of Evaluation: 12:25 - Subjective Subjective: Patient s/p cath Normal Coronaries and Normal EF Medical management Will Hold Lovenox today D/C Plavix IV hydration F/U renal function Objective - Vital Signs/Intake and Output Vital Signs (last 24 hours): Temp Pulse Resp BP Pulse Ox 98.4 F 85 18 140/90 96 05/14/17 08:00 05/14/17 08:59 05/14/17 08:00 05/14/17 08:00 05/14/17 08:00 Intake and Output: 05/14/17 05/14/17 06:59 18:59 Intake Total 300 Balance 300 - Medications Medications: Current Medications Albuterol/Ipratropium (Duoneb 3 Mg/0.5 Mg (3 Ml) Ud) 3 ml INH RQ6 [facility] Last Admin: 05/14/17 07:17 Dose: 3 ml Aspirin (Ecotrin) 81 mg PO DAILY [facility] Last Admin: 05/14/17 11:48 Dose: 81 mg Enoxaparin Sodium (Lovenox) 80 mg SC Q12 [facility] Last Admin: 05/14/17 10:00 Dose: Not Given Famotidine (Pepcid) 20 mg PO DAILY [facility] Last Admin: 05/14/17 11:48 Dose: 20 mg Home Med (Patient's Own Medication) 1 tab PO DAILY [facility] Last Admin: 05/14/17 11:49 Dose: 1 tab Sodium Chloride (Sodium Chloride 0.45%) 1,000 mls @ 60 mls/hr IV .[id number] [facility] Stop: 05/14/17 23:00 Last Admin: 05/14/17 11:41 Dose: 60 mls/hr Rosuvastatin Calcium (Crestor) 2.5 mg PO HS [facility] Last Admin: 05/13/17 21:32 Dose: 2.5 mg - Labs Labs: 05/14/17 06:52 05/14/17 06:52 PT 11.4 SECONDS (9.7-12.2) 05/14/17 06:52 INR 1.0 05/14/17 06:52 APTT 24 SECONDS (21-34) 05/12/17 01:02
--- NOTE | 2017-05-14 12:32 | CARD ---
APPROVED REPORT EXAM: Two-dimensional and M-mode echocardiogram with Doppler and color Doppler. Other Information Quality : TDSRhythm : INDICATION Chest Pain COPD RISK FACTORS Hypertension 2D DIMENSIONS IVSd1.1 (0.7-1.1cm)LVDd4.9 (3.9-5.9cm) PWd1.1 (0.7-1.1cm)LVDs3.3 (2.5-4.0cm) FS (%) 32.7 %LVEF (%)55.0 (>50%) M-Mode DIMENSIONS Left Atrium (MM)3.46 (2.5-4.0cm)Aortic Root3.54 (2.2-3.7cm) Aortic Cusp Exc.2.00 (1.5-2.0cm) Mitral Valve MV E Ofgfgksq88.0cm/sMV A Zxyzpcoi35.6cm/sE/A ratio0.6 TDI E/Lateral E'0.0E/Medial E'0.0 Tricuspid Valve TR Peak [id number]/sTR Peak [id number] LEFT VENTRICLE The left ventricle is normal size. There is borderline concentric left ventricular hypertrophy. The left ventricular function is normal. The left ventricular ejection fraction is within the normal range. apical hypokinesia present. Transmitral Doppler flow pattern is Grade I-abnormal relaxation pattern. No left ventricle thrombus noted on this study. There is no ventricular septal defect visualized. There is no left ventricular aneurysm. There is no mass noted in the left ventricle. RIGHT VENTRICLE The right ventricle is normal size. There is normal right ventricular wall thickness. The right ventricular systolic function is normal. ATRIA The left atrium size is normal. The right atrium size is normal. The interatrial septum is intact with no evidence for an atrial septal defect. AORTIC VALVE The aortic valve is normal in structure. No aortic regurgitation is present. There is no aortic valvular stenosis. There is no aortic valvular vegetation. MITRAL VALVE The mitral valve is normal in structure. There is no mitral valve stenosis. There is no mitral valve regurgitation noted. TRICUSPID VALVE The tricuspid valve is normal in structure. There is no tricuspid valve regurgitation noted. There is mild pulmonary hypertension. PULMONIC VALVE There is no pulmonic valvular regurgitation. GREAT VESSELS The aortic root is normal in size. The ascending aorta is normal in size. The pulmonary artery is normal. PERICARDIAL EFFUSION There is no pericardial effusion. <Conclusion> There is borderline concentric left ventricular hypertrophy. apical hypokinesia present. Transmitral Doppler flow pattern is Grade I-abnormal relaxation pattern. There is no tricuspid valve regurgitation noted. There is mild pulmonary hypertension. technically difficult study. lvef is 55%.
--- NOTE | 2017-05-14 13:16 | CP.PCM.CON ---
History of Present Illness - History of Present Illness History of Present Illness: Patient is a 47 year old female with a history of HIV, COPD, HTN, depression, anxiety, bipolar disorder, arthritis, DVT (IVC filter placed June 2014), hyperthyroidism who presented to the ED on 05/12/17 for mid-sternal chest pain associated with numbness and tingling down both arms. EMS administered ASA 325mg prior to arrival at the ED. Initial EKG revealed NSR at 93 with left atrial enlargement and left axis deviation. Initial troponin was negative, however subsequent troponins were elevated after admission. Patient has a cardiac cath scheduled today for NSTEMI. Chest CT revealed no pulmonary emboli, however revealed pulmonary nodules and lymphadenopathy. PMH: anxiety, arthritis, bipolar disorder, COPD, depression, DVT ( IVC Filter placed June 2014), HIV, HTN, hyperthyroidism PSH: cholecystectomy Social hx: (+) smoker >10 cigarettes daily, (-) ETOH or drug use. HIV positive Meds: Complera [id number] 1 tab PO daily Allergies: sea salt Assessment and plan 47 year old female with history of HIV, COPD, DVT, HTN, Hyperthyroidism, anxiety , arthritis, bipolar disorder who was admitted on 05/12/17 for chest pain. She was found have an NSTEMI, with elevated troponins during hospitalization. Pulmonology was consulted for presence of lung nodules and hilar lymphadenopathy found on CT of chest. Basal pulmonary nodules Lymphadenopathy likely secondary to HIV Rule out sarcoidosis CXR 05/12/17 Moderate interstitial prominence may reflect infection or edema. Question small bilateral pleural effusions versus soft tissue attenuation. Cardiomegaly. Repeat CXR 05/12/17 Prominent diffuse increased interstitial markings suggestive for moderate venous congestion versus interstitial infiltrates. Clinical correlation. Right hilar prominence. Cardiomegaly Chest CT: No pulmonary emboli. Pulmonary arterial hypertension possible. Extensive hilar and mediastinal lymphadenopathy in this HIV positive patient. Sub cm benign appearing right basal pulmonary nodules (2) Lung nodules too small to biopsy. Recommend follow up on nodule with CT in 6 months. Afebrile throughout hospitalization No white count Saturating well on room air - 96% on RA Continue Albuterol/Ipratropium 3ml INH R Q6 Past Patient History - Infectious Disease Hx of Infectious Diseases: None - Tetanus Immunizations Tetanus Immunization: Unknown - Past Medical History & Family History Past Medical History?: Yes - Past Social History Smoking Status: Heavy Smoker > 10 Cigarettes Daily Chewing Tobacco Use: No Cigar Use: No Occupation: disabled, 2ndry to major depression Alcohol: Occasional Drugs: Denies - CARDIAC Hx Cardiac Disorders: Yes Hx Hypertension: Yes - PULMONARY Hx Respiratory Disorders: Yes Hx Chronic Obstructive Pulmonary Disease (COPD): Yes - NEUROLOGICAL Hx Neurological Disorder: Yes Hx Migraine: Yes - HEENT Hx HEENT Problems: No - RENAL Hx Chronic Kidney Disease: No - ENDOCRINE/METABOLIC Hx Endocrine Disorders: Yes Hx Hyperthyroidism: Yes (partial thyroidectomy) - HEMATOLOGICAL/ONCOLOGICAL Hx Blood Disorders: Yes Hx Anemia: Yes Hx Human Immunodeficiency Virus (HIV): Yes - INTEGUMENTARY Hx Dermatological Problems: No - MUSCULOSKELETAL/RHEUMATOLOGICAL Hx Musculoskeletal Disorders: Yes Hx Arthritis: Yes Hx Falls: No - GASTROINTESTINAL Hx Gastrointestinal Disorders: Yes Hx Gastritis: Yes Other/Comment: thrush in mouth, which provided clue to HIV testing - GENITOURINARY/GYNECOLOGICAL Hx Genitourinary Disorders: No - PSYCHIATRIC Hx Psychophysiologic Disorder: Yes Hx Anxiety: Yes Hx Bipolar Disorder: Yes (???) Hx Depression: Yes Hx Substance Use: No - SURGICAL HISTORY Hx Surgeries: Yes Hx Cholecystectomy: Yes - ANESTHESIA Hx Anesthesia: Yes Hx Anesthesia Reactions: No Hx Malignant Hyperthermia: No Meds Allergies/Adverse Reactions: Allergies Allergy/AdvReac Type Severity Reaction Status Date / Time SEA SALT Allergy Intermediate RASH Uncoded 05/12/17 01:03 - Medications Medications: Current Medications Albuterol/Ipratropium (Duoneb 3 Mg/0.5 Mg (3 Ml) Ud) 3 ml INH RQ6 [facility] Last Admin: 05/14/17 07:17 Dose: 3 ml Aspirin (Ecotrin) 81 mg PO DAILY [facility] Last Admin: 05/14/17 11:48 Dose: 81 mg Enoxaparin Sodium (Lovenox) 80 mg SC Q12 [facility] Last Admin: 05/14/17 10:00 Dose: Not Given Famotidine (Pepcid) 20 mg PO DAILY [facility] Last Admin: 05/14/17 11:48 Dose: 20 mg Home Med (Patient's Own Medication) 1 tab PO DAILY [facility] Last Admin: 05/14/17 11:49 Dose: 1 tab Sodium Chloride (Sodium Chloride 0.45%) 1,000 mls @ 60 mls/hr IV .[id number] [facility] Stop: 05/14/17 23:00 Last Admin: 05/14/17 11:41 Dose: 60 mls/hr Phenazopyridine HCl (Pyridium) 200 mg PO TIDPC [facility] Rosuvastatin Calcium (Crestor) 2.5 mg PO HS [facility] Last Admin: 05/13/17 21:32 Dose: 2.5 mg Results - Vital Signs Recent Vital Signs: Last Vital Signs Temp 98.4 F 05/14/17 08:00 Pulse 85 05/14/17 08:59 Resp 18 05/14/17 08:00 BP 140/90 05/14/17 08:00 Pulse Ox 96 05/14/17 08:00 - Labs Result Diagrams: 05/14/17 06:52 05/14/17 06:52 Labs: Laboratory Results - last 24 hr 05/14/17 05/14/17 05/14/17 06:52 06:52 06:52 WBC 5.8 RBC 5.16 Hgb 11.8 Hct 37.6 MCV 72.8 L MCH 22.8 L MCHC 31.3 L RDW 26.0 H Plt Count 157 MPV 9.3 PT 11.4 INR 1.0 Sodium 133 Potassium 4.5 Chloride 97 L Carbon Dioxide 32 H Anion Gap 9 L BUN 13 Creatinine 0.5 L Est GFR ( Amer) > 60 Est GFR (Non-Af Amer) > 60 Random Glucose 96 Calcium 9.9
--- NOTE | 2017-05-14 13:26 | CP.PCM.CON ---
History of Present Illness - History of Present Illness History of Present Illness: 47 F admitted for chest pain and referred for ID eval for HAART Rx - admitted here for chest pain with elevated troponins- cardaic cath shows normal coronaries Being evaluated by Dr leija for hilar adenopathy - Medical History PMH: Anxiety, Arthritis (knees), Bipolar Disorder (???), COPD, Depression, Deep Vein Thrombosis (VC filter 06/25/2014), HIV ( heterosexual ) since 2013 , HTN, Hyperthyroidism (partial thyroidectomy), Migraine obesity Denies: Chronic Kidney Disease Surgical History: Cholecystectomy - [facility] Procedures PLICATION OF VENA CAVA (06/26/14) Review of Systems - Constitutional Constitutional: As Per HPI - EENT Eyes: absent: As Per HPI, Blind Spots, Blurred Vision, Change in Vision, Decreased Night Vision, Diplopia, Discharge, Dry Eye, Exophthalmos, Floaters, Irritation, Itchy Eyes, Loss of Peripheral Vision, Pain, Photophobia, Requires Corrective Lenses, Sees Flashes, Spots in Vision, Tunnel Vision, Other Visual Disturbances, Loss of Vision, Other Ears: absent: As Per HPI, Decreased Hearing, Ear Discharge, Ear Pain, Tinnitus, Abnormal Hearing, Disequilibrium, Dizziness, Other Nose/Mouth/Throat: absent: As Per HPI, Epistaxis, Nasal Congestion, Nasal Discharge, Nasal Obstruction, Nasal Trauma, Nose Pain, Post Nasal Drip, Sinus Pain, Sinus Pressure, Bleeding Gums, Change in Voice, Dental Pain, Dry Mouth, Dysphagia, Halitosis, Hoarsness, Lip Swelling, Mouth Lesions, Mouth Pain, Odynophagia, Sore Throat, Throat Swelling, Tongue Swelling, Facial Pain, Neck Pain, Neck Mass, Other - Breasts Breasts: absent: As Per HPI, Change in Shape, Mass, Pain, Nipple Discharge, Nipple Inversion, Skin Changes, Swelling, Other - Cardiovascular Cardiovascular: As Per HPI - Respiratory Respiratory: absent: As Per HPI, Cough, Dyspnea, Hemoptysis, Dyspnea on Exertion , Wheezing, Snoring, Stridor, Pain on Inspiration, Chest Congestion, Excessive Mucous Production, Change in Mucous Color, Pain with Coughing, Other - Gastrointestinal Gastrointestinal: absent: As Per HPI, Abdominal Pain, Belching, Bloating, Change in Bowel Habits, Change in Stool Character, Coffee Ground Emesis, Constipation, Cramping, Diarrhea, Dyspepsia, Dysphagia, Early Satiety, Excessive Flatus, Fecal Incontinence, Heartburn, Hematemesis, Hematochezia, Loose Stools, Melena, Nausea, Odynophagia, Temesmus, Vomiting, Other - Genitourinary Genitourinary: absent: As Per HPI, Change in Urinary Stream, Difficulty Urinating, Dysuria, Flank Pain, Hematuria, Pyuria, Nocturia, Urinary Incontinence, Urinary Frequency, Urinary Hesitance, Urinary Urgency, Voiding Freq/Small Amts, Freq UTI, Hx Renal/Bladder Calculi, Hx /Renal Surgery, Bladder Distension, Other - Reproductive: Female Reproductive:Female: absent: As Per HPI, Amenorrhea, Amenorrhea/ Control, Currently Menstual, Cycle <21 Days, Cycle >35 Days, Cycle Variable, Menses 1-7 Days, Menses >/= 8 Days, Menses Variable, Cycle > 4 Weeks Between, No Menses for 6 Months, Heavy Menses, Light Menses, Normal Menses, Spotting Between Cycles , S/P Hysterectomy, Menopausal, Post Menopausal, Premenarche, Abnormal Vaginal Bleeding, Dysmenorrhea, Dyspareunia, Genital Lesions, Genital Pruritis, Pelvic Pain, Prolapse Symptoms, Sexual Dysfunction, Vaginal Discharge, Vaginal Dryness , Vaginal Odor, Vaginal Pruritis, Other - Menstruation Menstruation: absent: As Per HPI, Amenorrhea, Amenorrhea/ Control, Currently Menstual, Cycle <21 Days, Cycle >35 Days, Cycle Variable, Menses 1-7 Days, Menses >/= 8 Days, Menses Variable, Cycle > 4 Weeks Between, No Menses for 6 Months, Heavy Menses, Light Menses, Normal Menses, Spotting Between Cycles , S/P Hysterectomy, Menopausal, Post Menopausal, Premenarche, Abnormal Vaginal Bleeding, Dysmenorrhea, Other - Musculoskeletal Musculoskeletal: absent: As Per HPI, Abnormal Gait, Arthralgias, Atrophy, Back Pain, Deformity, Joint Swelling, Limited Range of Motion, Loss of Height, Muscle Cramps, Muscle Weakness, Myalgias, Neck Pain, Numbness, Radiating Pain into Limb, Stiffness, Tingling, Other - Integumentary Integumentary: absent: As Per HPI, Acne, Alopecia, Bleeding Lesions, Change in Hair, Change in Nails, Change in Pigmentation, Changing Lesions, Dry Skin, Erythema, Furuncle, Hirsutism, Lesions, New Lesions, Non-Healing Lesions, Photosensitivity, Pruritus, Rash, Skin Pain, Skin Ulcer, Sores, Striae, Swelling , Unusual Bruising, Wounds, Jaundice, Other - Neurological Neurological: absent: As Per HPI, Abnormal Gait, Abnormal Hearing, Abnormal Movements, Abnormal Speech, Behavioral Changes, Burning Sensations, Confusion, Convulsions, Disequilibrium, Dizziness, Numbness, Focal Weakness, Frequent Falls , Headaches, Lack of Coordination, Loss of Vision, Memory Loss, Paresthesias, Radicular Pain, Restless Legs, Sensory Deficit, Syncope, Tingling, Tremor, Vertigo, Weakness, Other Visual Disturbances, Other - Psychiatric Psychiatric: absent: As Per HPI, Abnormal Sleep Pattern, Anhedonia, Anxiety, Auditory Hallucinations, Behavioral Changes, Change in Appetite, Change in Libido, Confusion, Depression, Difficulty Concentrating, Hallucinations, Homicidal Ideation, Hopelessness, Irritability, Memory Loss, Mood Swings, Panic Attacks, Paranoia, Suicidal Ideation, Visual Hallucinations, Tactile Hallucinations, Other - Endocrine Endocrine: absent: As Per HPI, Change in Body Appearance, Change in Libido, Cold Intolorance, Deepening of Voice, Excessive Sweating, Fatigue, Flushing, Heat Intolorance, Increase in Ring/Shoe/Hat Size, Palpitations, Polydipsia, Polyphagia, Polyuria, Other - Hematologic/Lymphatic Hematologic: absent: As Per HPI, Easy Bleeding, Easy Bruising, Lymphadenopathy, Other Past Patient History - Infectious Disease Hx of Infectious Diseases: None - Tetanus Immunizations Tetanus Immunization: Unknown - Past Medical History & Family History Past Medical History?: Yes - Past Social History Smoking Status: Heavy Smoker > 10 Cigarettes Daily Chewing Tobacco Use: No Cigar Use: No Occupation: disabled, 2ndry to major depression Alcohol: Occasional Drugs: Denies - CARDIAC Hx Cardiac Disorders: Yes Hx Hypertension: Yes - PULMONARY Hx Respiratory Disorders: Yes Hx Chronic Obstructive Pulmonary Disease (COPD): Yes - NEUROLOGICAL Hx Neurological Disorder: Yes Hx Migraine: Yes - HEENT Hx HEENT Problems: No - RENAL Hx Chronic Kidney Disease: No - ENDOCRINE/METABOLIC Hx Endocrine Disorders: Yes Hx Hyperthyroidism: Yes (partial thyroidectomy) - HEMATOLOGICAL/ONCOLOGICAL Hx Blood Disorders: Yes Hx Anemia: Yes Hx Human Immunodeficiency Virus (HIV): Yes - INTEGUMENTARY Hx Dermatological Problems: No - MUSCULOSKELETAL/RHEUMATOLOGICAL Hx Musculoskeletal Disorders: Yes Hx Arthritis: Yes Hx Falls: No - GASTROINTESTINAL Hx Gastrointestinal Disorders: Yes Hx Gastritis: Yes Other/Comment: thrush in mouth, which provided clue to HIV testing - GENITOURINARY/GYNECOLOGICAL Hx Genitourinary Disorders: No - PSYCHIATRIC Hx Psychophysiologic Disorder: Yes Hx Anxiety: Yes Hx Bipolar Disorder: Yes (???) Hx Depression: Yes Hx Substance Use: No - SURGICAL HISTORY Hx Surgeries: Yes Hx Cholecystectomy: Yes - ANESTHESIA Hx Anesthesia: Yes Hx Anesthesia Reactions: No Hx Malignant Hyperthermia: No Meds Allergies/Adverse Reactions: Allergies Allergy/AdvReac Type Severity Reaction Status Date / Time SEA SALT Allergy Intermediate RASH Uncoded 05/12/17 01:03 - Medications Medications: Current Medications Albuterol/Ipratropium (Duoneb 3 Mg/0.5 Mg (3 Ml) Ud) 3 ml INH RQ6 [facility] Last Admin: 05/14/17 07:17 Dose: 3 ml Aspirin (Ecotrin) 81 mg PO DAILY [facility] Last Admin: 05/14/17 11:48 Dose: 81 mg Enoxaparin Sodium (Lovenox) 80 mg SC Q12 [facility] Last Admin: 05/14/17 10:00 Dose: Not Given Famotidine (Pepcid) 20 mg PO DAILY [facility] Last Admin: 05/14/17 11:48 Dose: 20 mg Home Med (Patient's Own Medication) 1 tab PO DAILY [facility] Last Admin: 05/14/17 11:49 Dose: 1 tab Sodium Chloride (Sodium Chloride 0.45%) 1,000 mls @ 60 mls/hr IV .[id number] [facility] Stop: 05/14/17 23:00 Last Admin: 05/14/17 11:41 Dose: 60 mls/hr Phenazopyridine HCl (Pyridium) 200 mg PO TIDPC [facility] Rosuvastatin Calcium (Crestor) 2.5 mg PO HS [facility] Last Admin: 05/13/17 21:32 Dose: 2.5 mg Physical Exam - Constitutional Appears: Chronically Ill - Head Exam Head Exam: ATRAUMATIC, NORMOCEPHALIC - Eye Exam Eye Exam: PERRL. absent: Scleral icterus - ENT Exam ENT Exam: Mucous Membranes Dry - Neck Exam Neck exam: Negative for: Lymphadenopathy - Respiratory Exam Respiratory Exam: Decreased Breath Sounds, Clear to Auscultation Bilateral - Cardiovascular Exam Cardiovascular Exam: REGULAR RHYTHM, +S1, +S2 - GI/Abdominal Exam GI & Abdominal Exam: Diminished Bowel Sounds, Soft. absent: Tenderness - Rectal Exam Rectal Exam: Deferred - Exam Exam: NORMAL INSPECTION - Extremities Exam Extremities exam: Negative for: pedal edema - Back Exam Back exam: absent: CVA tenderness (L), CVA tenderness (R) - Neurological Exam Neurological exam: Alert, CN II-XII Intact, Oriented x3, Reflexes Normal - Psychiatric Exam Psychiatric exam: Normal Mood - Skin Skin Exam: Dry, Intact Results - Vital Signs Recent Vital Signs: Last Vital Signs Temp 98.4 F 05/14/17 08:00 Pulse 85 05/14/17 08:59 Resp 18 05/14/17 08:00 BP 140/90 05/14/17 08:00 Pulse Ox 96 05/14/17 08:00 - Labs Result Diagrams: 05/14/17 06:52 05/14/17 06:52 Labs: Laboratory Results - last 24 hr 05/14/17 05/14/17 05/14/17 06:52 06:52 06:52 WBC 5.8 RBC 5.16 Hgb 11.8 Hct 37.6 MCV 72.8 L MCH 22.8 L MCHC 31.3 L RDW 26.0 H Plt Count 157 MPV 9.3 PT 11.4 INR 1.0 Sodium 133 Potassium 4.5 Chloride 97 L Carbon Dioxide 32 H Anion Gap 9 L BUN 13 Creatinine 0.5 L Est GFR ( Amer) > 60 Est GFR (Non-Af Amer) > 60 Random Glucose 96 Calcium 9.9 Assessment & Plan (1) ACS (acute coronary syndrome) Status: Acute (2) Chest pain Status: Acute (3) HIV (human immunodeficiency virus infection) Status: Acute - Assessment and Plan (Free Text) Assessment: 47 yo female admitted for chest pain and found to have normal coronaries has abnormal CT chest and pulmonary is on board to r/o malignancy will sent TB quantiferon gold and restart HAART rx
[2017-05-14] MEDS ORDERED: Tmp-Smz 800 mg-160 mg DS Tab PO SCH (19:00)
[2017-05-14] MEDS: Rosuvastatin Calcium 2.5 mg Tab PO SCH (21:30)
[2017-05-14] MEDS: Tmp-Smz 800 mg-160 mg DS Tab PO SCH (21:30)
[2017-05-14 22:33] VITALS: RESP 20
--- NOTE | 2017-05-15 00:25 | CP.PCM.PN ---
Subjective - Date & Time of Evaluation Date of Evaluation: 05/14/17 Time of Evaluation: 13:00 - Subjective Subjective: Pt underwent cardiac cath today with normal results. Spoke with cardio and despite increasing troponins, no blockage exists. Seen as well by Pulmonary and ID re: pulmonary nodules and masses. Massess too small to be biopsied per Pulmonary, and ID restarted HAART. Objective - Vital Signs/Intake and Output Vital Signs (last 24 hours): Temp Pulse Resp BP Pulse Ox 98.3 F 106 H 20 144/76 99 05/14/17 22:00 05/14/17 22:00 05/14/17 22:00 05/14/17 22:00 05/14/17 22:00 Intake and Output: 05/14/17 05/15/17 18:59 06:59 Intake Total 860 Output Total 1000 Balance -140 - Medications Medications: Current Medications Albuterol/Ipratropium (Duoneb 3 Mg/0.5 Mg (3 Ml) Ud) 3 ml INH RQ6 [facility] Last Admin: 05/14/17 19:41 Dose: 3 ml Aspirin (Ecotrin) 81 mg PO DAILY [facility] Last Admin: 05/14/17 11:48 Dose: 81 mg Emtricitabine/Tenofovir (Truvada 200 Mg-300 Mg) 1 tab PO DAILY [facility] Enoxaparin Sodium (Lovenox) 80 mg SC Q12 [facility] Last Admin: 05/14/17 10:00 Dose: Not Given Famotidine (Pepcid) 20 mg PO DAILY [facility] Last Admin: 05/14/17 11:48 Dose: 20 mg Home Med (Patient's Own Medication) 1 tab PO DAILY [facility] Last Admin: 05/14/17 11:49 Dose: 1 tab Phenazopyridine HCl (Pyridium) 200 mg PO TIDPC [facility] Last Admin: 05/14/17 17:20 Dose: 200 mg Raltegravir (Isentress) 400 mg PO BID [facility] Rosuvastatin Calcium (Crestor) 2.5 mg PO HS [facility] Last Admin: 05/14/17 21:30 Dose: 2.5 mg Trimethoprim/Sulfamethoxazole (Bactrim Ds Tab) 1 tab PO Q12 [facility] Stop: 05/24/17 10:01 Last Admin: 05/14/17 21:30 Dose: 1 tab - Labs Labs: 05/14/17 06:52 05/14/17 06:52 PT 11.4 SECONDS (9.7-12.2) 05/14/17 06:52 INR 1.0 05/14/17 06:52 APTT 24 SECONDS (21-34) 05/12/17 01:02 - Constitutional Appears: No Acute Distress - Head Exam Head Exam: NORMAL INSPECTION, NORMOCEPHALIC - Eye Exam Eye Exam: Normal appearance Pupil Exam: NORMAL ACCOMODATION - ENT Exam ENT Exam: Normal Exam - Neck Exam Neck Exam: Full ROM, Normal Inspection - Respiratory Exam Respiratory Exam: Clear to Ausculation Bilateral, NORMAL BREATHING PATTERN - Cardiovascular Exam Cardiovascular Exam: REGULAR RHYTHM - GI/Abdominal Exam GI & Abdominal Exam: Soft, Normal Bowel Sounds - Rectal Exam Rectal Exam: Deferred - Extremities Exam Extremities Exam: Full ROM, Normal Capillary Refill, Normal Inspection - Back Exam Back Exam: Full ROM, NORMAL INSPECTION - Neurological Exam Neurological Exam: Alert, Awake, CN II-XII Intact, Normal Gait Neuro motor strength exam: Left Upper Extremity: 5, Right Upper Extremity: 5, Left Lower Extremity: 5, Right Lower Extremity: 5 - Psychiatric Exam Psychiatric exam: Normal Affect, Normal Mood - Skin Skin Exam: Dry, Intact, Normal Color, Warm Assessment and Plan (1) ACS (acute coronary syndrome) Assessment & Plan: ruled out by cardiac cath. may have been 2ndry to GERD bec of occurrence as pt ws lying down and equivocal rise in troponins prompting said cath. Decision not to call angina and CT borne out by results of carth. 2. negatie cardiac cath 3. disappeareance of symptoms once H2 des started on pt. Status: Acute (2) Abnormal CXR (chest x-ray) Status: Acute (3) Chest pain Status: Acute (4) Elevated d-dimer Status: Acute (5) HIV (human immunodeficiency virus infection) Status: Acute
[2017-05-15 08:34] LABS: CARDIOLIPIN AB (IGA) <11 APL (<=11); CARDIOLIPIN AB (IGG) <14 GPL (<=14)
[2017-05-15] MEDS ORDERED: Emtricitabine-Tenofovir 200 mg-300 mg Tab PO SCH (10:00)
[2017-05-15 11:11] VITALS: BP 143/88; PULSE 95; TEMP 98.2; O2SAT 95
[2017-05-15] MEDS: Tmp-Smz 800 mg-160 mg DS Tab PO SCH (11:43)
[2017-05-15] MEDS: Enoxaparin 80 mg Syringe SC SCH (11:43)
[2017-05-15] MEDS: Odefsey 200mg/25mg/25mg PO SCH (11:44)
[2017-05-15 12:25] LABS: % CD4 (T HELPER CELL) 23 Percent (30-61); % CD8 (SUPPRESSOR T CELL) 54 Percent (12-42); ABSOLUTE CD4 CELLS 514 Cells/mcL (490-1740); ABSOLUTE CD8 CELLS 1223 Cells/mcL (180-1170); ABSOLUTE LYMPHOCYTES 2268 Cells/mcL (850-3900); HELPER/SUPPRESSOR RATIO 0.42 Ratio (0.86-5.00)
[2017-05-15 14:45] LABS: B2 GLYCOPROTEIN I AB(IGA) <9 SAU (<=20); B2 GLYCOPROTEIN I AB(IGG) <9 SGU (<=20); B2 GLYCOPROTEIN I AB(IGM) <9 SMU (<=20)
--- NOTE | 2017-05-15 14:45 | CP.PCM.DIS ---
Provider - Provider Date of Admission: 05/12/17 01:53 Attending physician: Emilio Barney MD Primary care physician: Dr. Emilio Barney Consults: Cardiology--Dr. Jonathan Valdes Inf Disease--Dr. Hunter Schaefer PUlmonary--Dr. Yasmin Roman Time Spent in preparation of Discharge (in minutes): 45 Diagnosis - Discharge Diagnosis (1) ACS (acute coronary syndrome) Status: Acute (2) Abnormal CXR (chest x-ray) Status: Acute (3) Chest pain Status: Acute (4) Elevated d-dimer Status: Acute (5) HIV (human immunodeficiency virus infection) Status: Acute Hospital Course - Lab Results Lab Results: Micro Results 05/12/17 06:38 Nose MRSA Culture (Admit) - Final MRSA NOT DETECTED Most Recent Lab Values WBC 5.8 K/uL (4.8-10.8) 05/14/17 06:52 RBC 5.16 Mil/uL (3.80-5.20) 05/14/17 06:52 Hgb 11.8 g/dL (11.0-16.0) 05/14/17 06:52 Hct 37.6 % (34.0-47.0) 05/14/17 06:52 MCV 72.8 fL (81.0-99.0) L 05/14/17 06:52 MCH 22.8 pg (27.0-31.0) L 05/14/17 06:52 MCHC 31.3 g/dL (33.0-37.0) L 05/14/17 06:52 RDW 26.0 % (11.5-14.5) H 05/14/17 06:52 Plt Count 157 K/uL (130-400) 05/14/17 06:52 MPV 9.3 fL (7.2-11.7) 05/14/17 06:52 Neut % (Auto) 67.9 % (50.0-75.0) 05/12/17 01:02 Lymph % (Auto) 22.3 % (20.0-40.0) 05/12/17 01:02 [place] % (Auto) 7.2 % (0.0-10.0) 05/12/17 01:02 Eos % (Auto) 1.3 % (0.0-4.0) 05/12/17 01:02 Baso % (Auto) 1.3 % (0.0-2.0) 05/12/17 01:02 Neut # 3.9 K/uL (1.8-7.0) 05/12/17 01:02 Lymph # 1.3 K/uL (1.0-4.3) 05/12/17 01:02 [place] # 0.4 K/uL (0.0-0.8) 05/12/17 01:02 Eos # 0.1 K/uL (0.0-0.7) 05/12/17 01:02 Baso # 0.1 K/uL (0.0-0.2) 05/12/17 01:02 PT 11.4 SECONDS (9.7-12.2) 05/14/17 06:52 INR 1.0 05/14/17 06:52 APTT 24 SECONDS (21-34) 05/12/17 01:02 Protein C Activity 87 % (70-180) 05/12/17 11:02 Sodium 133 mmol/L (132-148) 05/14/17 06:52 Potassium 4.5 mmol/L (3.6-5.2) 05/14/17 06:52 Chloride 97 mmol/L (98-107) L 05/14/17 06:52 Carbon Dioxide 32 mmol/L (22-30) H 05/14/17 06:52 Anion Gap 9 (10-20) L 05/14/17 06:52 BUN 13 mg/dL (7-17) 05/14/17 06:52 Creatinine 0.5 mg/dL (0.7-1.2) L 05/14/17 06:52 Est GFR ( Amer) > 60 05/14/17 06:52 Est GFR (Non-Af Amer) > 60 05/14/17 06:52 Random Glucose 96 mg/dL (65-105) 05/14/17 06:52 Calcium 9.9 mg/dl (8.6-10.4) 05/14/17 06:52 Total Bilirubin 0.4 mg/dL (0.2-1.3) 05/12/17 01:00 AST 20 U/L (14-36) 05/12/17 01:00 ALT 22 U/L (9-52) 05/12/17 01:00 Alkaline Phosphatase 83 U/L (38-126) 05/12/17 01:00 Total Creatine Kinase 45 U/L (30-135) 05/13/17 06:36 CK-MB (Mass) 1.06 ng/mL (0.0-3.38) 05/13/17 06:36 Troponin I 0.3210 ng/mL (0.00-0.120) H* 05/13/17 06:36 NT-Pro-B Natriuret Pep 201 pg/mL (0-450) 05/12/17 01:00 Total Protein 7.6 g/dL (6.3-8.3) 05/12/17 01:00 Albumin 3.3 g/dL (3.5-5.0) L 05/12/17 01:00 Globulin 4.2 gm/dL (2.2-3.9) H 05/12/17 01:00 Albumin/Globulin Ratio 0.8 (1.0-2.1) L 05/12/17 01:00 Triglycerides 107 mg/dL (0-149) 05/13/17 06:36 Cholesterol 155 mg/dL (0-199) 05/13/17 06:36 LDL Cholesterol Direct 100 mg/dL (0-129) 05/13/17 06:36 HDL Cholesterol 26 mg/dL (30-70) L 05/13/17 06:36 Urine Color [place] (YELLOW) 05/12/17 06:03 Urine Clarity Hazy (Clear) 05/12/17 06:03 Urine pH 6.0 (5.0-8.0) 05/12/17 06:03 Ur Specific [place] 1.017 (1.003-1.030) 05/12/17 06:03 Urine Protein 3+ mg/dL (NEGATIVE) H 05/12/17 06:03 Urine Glucose (UA) Normal mg/dL (Normal) 05/12/17 06:03 Urine Ketones Negative mg/dL (NEGATIVE) 05/12/17 06:03 Urine Blood Negative (NEGATIVE) 05/12/17 06:03 Urine Nitrate Negative (NEGATIVE) 05/12/17 06:03 Urine Bilirubin Negative (NEGATIVE) 05/12/17 06:03 Urine Urobilinogen 4.0 mg/dL (0.2-1.0) H 05/12/17 06:03 Ur Leukocyte Esterase Neg [place]ha/uL (Negative) 05/12/17 06:03 Urine WBC (Auto) 5 /hpf (0-5) 05/12/17 06:03 Urine RBC (Auto) < 1 /hpf (0-3) 05/12/17 06:03 Ur Squamous Epith Cells 1 /hpf (0-5) 05/12/17 06:03 Urine Bacteria Mod (<OCC) H 05/12/17 06:03 Urine HCG, Qual Negative (NEGATIVE) 05/12/17 06:03 Anti-Cardiolipin IgG Ab <14 GPL (<=14) 05/12/17 11:02 Anti-Cardiolipin IgA Ab <11 APL (<=11) 05/12/17 11:02 Anti-Cardiolipin IgM Ab <12 MPL (<=12) 05/12/17 11:02 Absolute Lymphs (Flow) 2268 Cells/mcL (850-3900) 05/14/17 07:53 % CD4 Cells 23 Percent (30-61) L 05/14/17 07:53 Absolute CD4 Count 514 Cells/mcL (490-1740) 05/14/17 07:53 T-Help/Suppress Ratio 0.42 Ratio (0.86-5.00) L 05/14/17 07:53 % CD8 Cells 54 Percent (12-42) H 05/14/17 07:53 Absolute CD8 Count 1223 Cells/mcL (180-1170) H 05/14/17 07:53 - Hospital Course Hospital Course: Pt admitted after she arrived by ambulance complaining of chest pain. Pt's symptoms subsided with EMS intervention, and says that this has not happened to her before. Pt's chest pain radiated to L arm as well as R arm at the time, and felt like a pressure mid-sternally. Ruling out angina, serial troponins obtained which a trending up of the cardiac enzymes. Cardio consult obtained, and cath done the following day revealing negative results for coronary atheroscleorisis. Incidental finding of pulmonary nodules and masses noted on chest xray, which were too small to be appreciated. Pt restarted on anti- platelet regimen as well as HAART therapy, and discharged home with close follow up in 2 days with her PMD. Discharge Exam - Head Exam Head Exam: ATRAUMATIC, NORMOCEPHALIC Discharge Plan - Discharge Medications Prescriptions: Sulfamethoxazole/Trimethoprim [Bactrim DS Tab] 1 tab PO Q12 9 Days #18 tab Rosuvastatin Calcium 2.5 [Crestor] 2.5 mg PO HS 30 Days #30 tab Aspirin [Ecotrin] 81 mg PO DAILY 30 Days #30 tabec Raltegravir Potassium [Isentress] 400 mg PO BID 30 Days #60 tab Famotidine [Pepcid] 20 mg PO DAILY 30 Days #60 tab Clopidogrel [Plavix] 75 mg PO DAILY 30 Days #30 tab - Follow Up Plan Condition: FAIR Disposition: HOME/ ROUTINE Instructions: Sulfamethoxazole/Trimethoprim (By mouth), Famotidine (By mouth), Aspirin (By mouth), Clopidogrel (By mouth), Rosuvastatin (By mouth), Raltegravir (By mouth), How to Stop Smoking (DC), Iron Rich Diet (DC), Cigarette Smoking and Your Health (GEN), Deep Venous Thrombosis (DC), Iron Deficiency Anemia (DC), Acute Coronary Syndrome (DC), HIV Transmission (DC), HIV Infection (DC) Additional Instructions: > Follow up with Dr. Emilio Barney on 05/17/2017 at 2 pm at his office. > Follow up with Dr. Schaefer's office in 2 weeks. Call his office for appt > Follow up with Dr. Roman in [address] Barney sends you for your CT sca nof the chest Clinical Quality Measures - CQM - Stroke Antithrombotic Prescribed: Yes Anticoagulation Prescribed for Atrial Flutter, Atrial Fibrillation and History of:: Not Applicable Statin prescribed: Yes
[2017-05-15 23:08] LABS: CARDIOLIPIN AB (IGM) <12 MPL (<=12); PHOSPHATIDYLSERINE AB IGA <20 U/mL (<20); PHOSPHATIDYLSERINE AB IGG <10 U/mL (<10); PHOSPHATIDYLSERINE AB IGM <25 U/mL (<25)
--- NOTE | 2017-05-15 23:44 | CARD ---
APPROVED REPORT EKG Measurement Heart [id number] <Conclusion> Normal sinus rhythm Normal ECG
--- NOTE | 2017-05-17 20:07 | CP.PCM.PN ---
Subjective - Date & Time of Evaluation Date of Evaluation: 05/17/17 Time of Evaluation: 20:05 - Subjective Subjective: Pt seen and examined at bedside. Reviewed events of today when pt self extubated but developed respiratory distress and had to be intubated again. Pt' s family agreed to trache placement which is scheduled for the AM. Had explained to family that though this may be a solution, it is not a long-term solution and eventually, the cancer will catch up with him. Family verbalized understanding but remained hopeful. Objective - Vital Signs/Intake and Output Vital Signs (last 24 hours): Temp Pulse Resp BP Pulse Ox 98.2 F 95 H 20 143/88 95 05/15/17 09:00 05/15/17 09:00 05/15/17 09:00 05/15/17 09:00 05/15/17 09:00 - Labs Labs: 05/14/17 06:52 05/14/17 06:52 PT 11.4 SECONDS (9.7-12.2) 05/14/17 06:52 INR 1.0 05/14/17 06:52 APTT 24 SECONDS (21-34) 05/12/17 01:02 - Constitutional Appears: In Acute Distress, Other (agitated at times) - Eye Exam Eye Exam: Normal appearance Pupil Exam: NORMAL ACCOMODATION - ENT Exam ENT Exam: Mucous Membranes Moist, Normal Exam - Neck Exam Neck Exam: Normal Inspection - Respiratory Exam Respiratory Exam: Decreased Breath Sounds (on vent) - Cardiovascular Exam Cardiovascular Exam: REGULAR RHYTHM - GI/Abdominal Exam GI & Abdominal Exam: Normal Bowel Sounds - Rectal Exam Rectal Exam: Deferred - Extremities Exam Extremities Exam: Normal Inspection - Neurological Exam Neurological Exam: Altered (sedated) - Skin Skin Exam: Dry, Intact, Warm Assessment and Plan (1) ACS (acute coronary syndrome) Status: Acute (2) Abnormal CXR (chest x-ray) Status: Acute (3) Chest pain Status: Acute (4) Elevated d-dimer Status: Acute (5) HIV (human immunodeficiency virus infection) Status: Acute
--- NOTE | 2017-05-17 23:39 | CARD ---
APPROVED REPORT EKG Measurement Heart [id number] MA 154P63 [id number] <Conclusion> Normal sinus rhythm Possible Anterior infarct, age undetermined Abnormal ECG
[2017-05-18 00:45] LABS: TB ANTIGEN MINUS NIL <0.00 IU/mL
--- NOTE | 2017-05-22 19:54 | CARDCATH ---
PROCEDURE DATE: 05/14/2017 PROCEDURES: 1. Left heart catheterization. 2. Coronary angiogram. 3. Radiological supervision and radiological interpretation of the coronary angiogram and left heart catheterization. REFERRING PHYSICIAN: Emilio Barney MD. PERFORMING PHYSICIAN: Jonathan Valdes MD. CLINICAL INDICATIONS: 1. Chest pain. 2. Elevated troponin. 3. Hypertension. 4. Diabetes. 5. Hyperlipidemia. PROCEDURE: After informed consent, the patient was prepped and draped in the usual sterile fashion. A 2% lidocaine was given in the right groin for local anesthesia. Using micropuncture technique, 6-[place] sheath was introduced into the right common femoral artery. JL4 diagnostic catheter was engaged into the left main coronary. Contrast injected and left coronary angiogram was performed. JR4, 6-[place] diagnostic catheter was engaged into right coronary artery. Contrast injected and right coronary angiogram was performed. Then, the same JR4 catheter crossed into left ventricle across the aortic valve. LV end diastolic pressure was measured. Contrast injected with hand injection and LV angiogram was performed. The catheter was pulled back across the aortic valve. Pressure gradient measured across the aortic valve. The patient tolerated the procedure well. FINDINGS: 1. Left main coronary artery is patent. 2. LAD and diagonal branches are patent. 3. Left circumflex and obtuse marginal branches are patent. 4. Right coronary artery is nondominant, but patent. 5. LV ejection fraction is approximately 55%. No wall motion abnormalities noted. EDP is 25. No gradient across the aortic valve. IMPRESSION: 1. Normal coronaries. 2. Normal left ventricular systolic function. PLAN: Recommend medical management. Jonathan Valdes MD
== END 2017-05-15 16:20 | disposition home or self-care (01) | DRG 122 ==
LOC: C.ER 00:37 → UNDOADMIN 01:53 → C.9E 01:53 → C.6T 01:53 → C.9I 05:17 → C.3T 05-14 22:03
PROVIDERS: ADMIT Family Medicine; ATTEND Family Medicine
PROC: 4A023N7 Measurement of Cardiac Sampling and Pressure, Left Heart, Percutaneous Approach (ICD-10-PCS; principal; 2017-05-14)
PROC: B2151ZZ Fluoroscopy of Left Heart using Low Osmolar Contrast (ICD-10-PCS; 2017-05-14)
PROC: B2111ZZ Fluoroscopy of Multiple Coronary Arteries using Low Osmolar Contrast (ICD-10-PCS; 2017-05-14)
DX: I21.4 Non-ST elevation (NSTEMI) myocardial infarction (principal); B20 Human immunodeficiency virus [HIV] disease; I27.21 Secondary pulmonary arterial hypertension; J44.9 Chronic obstructive pulmonary disease, unspecified; F31.9 Bipolar disorder, unspecified; I10 Essential (primary) hypertension; M17.0 Bilateral primary osteoarthritis of knee; R79.1 Abnormal coagulation profile; E89.0 Postprocedural hypothyroidism; F17.210 Nicotine dependence, cigarettes, uncomplicated; Z79.82 Long term (current) use of aspirin; Z90.49 Acquired absence of other specified parts of digestive tract; Z91.19 Patient's noncompliance with other medical treatment and regimen; Z86.718 Personal history of other venous thrombosis and embolism

== ENCOUNTER 2017-11-16 00:15 | Inpatient (IN) | payer MEDICAID ==
[2017-11-16 00:15] VITALS: BMI 40.7
--- NOTE | 2017-11-16 00:47 | C.PDOC ---
History Of Present Illness 47-year-old female presents to the ED complaining of shortness of breath and lower extremity swelling, worsening over the past week. Also complaining of dyspnea on exertion and paroxysmal nocturnal dyspnea. No palpitations or chest pain. Speaking in 5-6 word sentences on arrival. Time Seen by Provider: 11/16/17 00:47 Chief Complaint (Nursing): Shortness Of Breath History Per: Patient History/Exam Limitations: no limitations Onset/Duration Of Symptoms: Days Current Symptoms Are (Timing): Worse Initiating Event: Other Quality: Dull Exacerbating Factor(s): Exertion Current Respiratory Medications: See Home Med List Severity: Moderate Pain Scale Rating Of: 4 Associated Symptoms: Ankle/Leg Swelling. denies: Chest Pain Reports Recently: Seen In ED, Treated By A Physician, Hospitalized Recent travel outside of the [place]: No Additional History Per: Patient Past Medical History Reviewed: Historical Data, Nursing Documentation, Vital Signs Vital Signs: Last Vital Signs Temp 98.3 F 11/16/17 00:27 Pulse 84 11/16/17 03:24 Resp 17 11/16/17 03:24 BP 119/77 11/16/17 03:24 Pulse Ox 94 L 11/16/17 03:24 - Medical History PMH: Anemia, Anxiety, Arthritis, Bipolar Disorder (???), COPD, Depression, Deep Vein Thrombosis (VC filter 06/25/2014), Gastritis, HIV, HTN, Hyperthyroidism ( partial thyroidectomy), Migraine Denies: Chronic Kidney Disease Surgical History: Cholecystectomy - [facility] Procedures FLUOROSCOPY OF LEFT HEART USING LOW OSMOLAR CONTRAST (05/12/17) FLUOROSCOPY OF MULT COR ART USING L OSM CONTRAST (05/12/17) MEASURE OF CARDIAC SAMPL & PRESSURE, L HEART, PERC APPROACH (05/12/17) PLICATION OF VENA CAVA (06/26/14) Family History: States: No Known Family Hx - Social History Hx Tobacco Use: Yes Hx Alcohol Use: No Hx Substance Use: No - Immunization History Hx Tetanus Toxoid Vaccination: No Hx Influenza Vaccination: Yes Hx Pneumococcal Vaccination: No Review Of Systems Constitutional: Negative for: Fever Eyes: Negative for: Redness ENT: Positive for: Throat Pain Cardiovascular: Negative for: Chest Pain, Palpitations Respiratory: Positive for: Shortness of Breath Gastrointestinal: Negative for: Nausea, Vomiting Genitourinary: Negative for: Dysuria Musculoskeletal: Positive for: Other (lower extremity swelling) Skin: Negative for: Rash Neurological: Negative for: Weakness Psych: Negative for: Anxiety Physical Exam - Physical Exam Appears: Non-toxic, In Acute Distress (appears in mild discomfort) Skin: Warm, Dry Head: Normacephalic Eye(s): bilateral: PERRL, Other (bilateral upper eyelid edema) Oral Mucosa: Moist Throat: Normal (oropharynx is clear), No Erythema, No Exudate Neck: Normal ROM, Supple Chest: Symmetrical Cardiovascular: Rhythm Regular Respiratory: Decreased Breath Sounds, Rales (at the bases), No Rhonchi, No Wheezing Gastrointestinal/Abdominal: Soft (and obese), No Tenderness, No Distention Back: Normal Inspection Extremity: Normal ROM, Pedal Edema, No Calf Tenderness, No Deformity, Swelling ( bilateral pitting edema) Extremity: Bilateral: Atraumatic Pulses: Left Dorsalis Pedis: Normal, Right Dorsalis Pedis: Normal Neurological/Psych: Oriented x3 Gait: Steady ED Course And Treatment - Laboratory Results Result Diagrams: 11/16/17 00:43 11/16/17 00:43 ECG: Interpreted By Me, Viewed By Me ECG Rhythm: Sinus Rhythm (89), Nonspecific Changes O2 Sat by Pulse Oximetry: 88 Pulse Ox Interpretation: Abnormal - Radiology CXR: Interpreted by Me, Viewed By Me CXR Interpretation: Yes: Cardiomegaly, Other (chf). No: Infiltrates Progress Note: Ordered labs, EKG, and Chest x-ray. Patient placed on O2 and given 2 mg Morphine. Disposition Discussed With : Emilio Barney Comment: accepted the pt on his service and took over the care at 5AM Doctor Will See Patient In The: Hospital Counseled Patient/Family Regarding: Studies Performed, Diagnosis - Disposition Disposition: HOSPITALIZED Disposition Time: 00:47 Condition: FAIR Forms: [facility] ([place]) - Clinical Impression Clinical Impression: Dyspnea, Chest pain, Hypoxia - Scribe Statement The provider has reviewed the documentation as recorded by the Scribe (Bridgett Mcelroy) Provider Attestation: All medical record entries made by the Scribe were at my direction and personally dictated by me. I have reviewed the chart and agree that the record accurately reflects my personal performance of the history, physical exam, medical decision making, and the department course for this patient. I have also personally directed, reviewed, and agree with the discharge instructions and disposition. Decision To Admit - Pt Status Changed To: Hospital Disposition Of: Inpatient - Admit Certification Admit to Inpatient:: After my assessment, the patient will require hospitalization for at least two midnights. This is because of the severity of symptoms shown, intensity of services needed, and/or the medical risk in this patient being treated as an outpatient. - InPatient: Physician Admission Certification: I certify that this patient requires 2 or more midnights of care for the following reason:: After my assessment, the patient will require hospitalization for at least two midnights. This is because of the severity of symptoms shown, intensity of services needed, and/or the medical risk in this patient being treated as an outpatient. - . Bed Request Type: Telemetry Admitting Physician: Emilio Barney Patient Diagnosis: Dyspnea, Chest pain, Hypoxia
[2017-11-16 00:49] LABS: BASO # 0.1 K/uL (0.0-0.2); BASO % 1.5 % (0.0-2.0); EOS # 0.1 K/uL (0.0-0.7); HEMOGLOBIN 11.3 g/dL (11.0-16.0); LYMPH # 1.7 K/uL (1.0-4.3); LYMPH % 28.8 % (20.0-40.0); MEAN CELL VOLUME 74.2 fL (81.0-99.0); MEAN CORPUSCULAR HEMOGLOBIN 23.2 pg (27.0-31.0); MEAN CORPUSCULAR HGB CONC 31.3 g/dL (33.0-37.0); MEAN PLATELET VOLUME 9.3 fL (7.2-11.7); MONO # 0.4 K/uL (0.0-0.8); MONO % 7.5 % (0.0-10.0); NEUT # 3.7 K/uL (1.8-7.0); NEUT % 61.2 % (50.0-75.0); NRBC % 1.2 % (0.0-2.0); RBC 4.88 Mil/uL (3.80-5.20)
[2017-11-16 00:57] LABS: INR 1.2; PROTHROMBIN TIME 13.1 SECONDS (9.7-12.2)
[2017-11-16 01:13] LABS: ALB/GLOB RATIO 0.8 (1.0-2.1); ALBUMIN 3.5 g/dL (3.5-5.0); CALCIUM 9.4 mg/dl (8.6-10.4); GFR AFRICAN-AMERICAN > 60; GFR NON-AFRICAN AMERICAN > 60
[2017-11-16 01:38] LABS: ABG ALLEN TEST POS; ARTERIAL BLOOD GAS HCO3 31.6 mmol/L (21-28); ARTERIAL BLOOD GAS O2 SAT 95.1 % (95-98); ARTERIAL BLOOD GAS PCO2 61 mm/Hg (35-45); ARTERIAL BLOOD GAS PH 7.38 (7.35-7.45); ARTERIAL BLOOD GAS PO2 67 mm/Hg (80-100)
[2017-11-16 01:42] LABS: ALT/SGPT 20 U/L (9-52); AST/SGOT 33 U/L (14-36); BLOOD UREA NITROGEN 12 mg/dL (7-17)
[2017-11-16 02:02] LABS: TROPONIN I 0.041 ng/mL (0.00-0.120)
[2017-11-16] MEDS: Albuterol 0.083% Inhal Sol (2.5 mg/3 mL) UD INH SCH ×4 (07:51→20:01)
--- NOTE | 2017-11-16 08:45 | RAD ---
Date of service: 11/16/2017 PROCEDURE: CHEST RADIOGRAPH, 1 VIEW HISTORY: SOB COMPARISON: 05/12/2017. FINDINGS: LUNGS: Suboptimal diagnostic quality due to underexposure. Allowing for this, the lungs are well inflated and clear. There is mild pulmonary venous congestion. PLEURA: No pneumothorax or pleural fluid seen. CARDIOVASCULAR: There is persistent severe cardiomegaly. OSSEOUS STRUCTURES: No significant abnormalities. VISUALIZED UPPER ABDOMEN: Normal. OTHER FINDINGS: None. IMPRESSION: No active pulmonary disease. Severe cardiomegaly.
[2017-11-16] MEDS: Enoxaparin 40 mg Syringe SC SCH (09:57)
[2017-11-16] MEDS ORDERED: RILPIVIRINE PO SCH (10:00)
[2017-11-16] MEDS ORDERED: EMTRICITABINE PO SCH (10:00)
[2017-11-16] MEDS ORDERED: [UNRECOGNIZED DRUG - OTHER] PO SCH (10:00)
--- NOTE | 2017-11-16 12:38 | CARD ---
APPROVED REPORT Date of service: 11/16/2017 EKG Measurement Heart [id number] [place] 154P76 [id number] <Conclusion> Normal sinus rhythm Normal ECG
[2017-11-16] MEDS: MethylPREDNISolone 40 mg Vial IVP SCH (14:11)
[2017-11-16] MEDS: Rosuvastatin Calcium 2.5 mg Tab PO SCH (21:13)
[2017-11-17] MEDS: Albuterol 0.083% Inhal Sol (2.5 mg/3 mL) UD INH SCH ×6 (01:29→20:16)
[2017-11-17] MEDS: MethylPREDNISolone 40 mg Vial IVP SCH ×3 (02:17→18:35)
--- NOTE | 2017-11-17 03:46 | CP.PCM.HP ---
History of Present Illness - History of Present Illness History of Present Illness: cc: SOB HPI: Pt is a 47 yo AA female who is well known to me, though she only occasionally comes to the office for her medical problems. She presented at the ED today complaining of shortness of breath, with worsening over the past week. Also complaining of dyspnea on exertion and paroxysmal nocturnal dyspnea. No palpitations or chest pain. . Pt was still a smoker when last seen at the office last June 2017. Speaking in 5-6 word sentences on arrival. > Pt also had ower extremity swelling, prob 2ndry to chronic DVT for which she had a [place] filter put in iin the remote past. Present on Admission - Present on Admission Any Indicators Present on Admission: No History of DVT/PE: Yes History of Uncontrolled Diabetes: No Urinary Catheter: No Decubitus Ulcer Present: No Review of Systems - Review of Systems Systems not reviewed;Unavailable: Respiratory Distress (known COPD) - Constitutional Constitutional: absent: As Per HPI, Anorexia, Chills, Daytime Sleepiness, Excessive Sweating, Fatigue, Fever, Frequent Falls, Headache, Increased Appetite , Lethargy, Malaise, Night Sweats, Snoring, Sleep Apnea, Weight Gain, Weight Loss, Weakness, Other - EENT Eyes: absent: As Per HPI, Blind Spots, Blurred Vision, Change in Vision, Decreased Night Vision, Diplopia, Discharge, Dry Eye, Exophthalmos, Floaters, Irritation, Itchy Eyes, Loss of Peripheral Vision, Pain, Photophobia, Requires Corrective Lenses, Sees Flashes, Spots in Vision, Tunnel Vision, Other Visual Disturbances, Loss of Vision, Other - Breasts Breasts: absent: As Per HPI, Change in Shape, Mass, Pain, Nipple Discharge, Nipple Inversion, Skin Changes, Swelling, Other - Cardiovascular Cardiovascular: absent: As Per HPI, Acrocyanosis, Chest Pain, Chest Pain at Rest , Chest Pain with Activity, Claudication, Diaphoresis, Dyspnea, Dyspnea on Exertion, Edema, Irregular Heart Rhythm, Pain Radiating to Arm/Neck/Jaw, Leg Edema, Leg Ulcers, Lightheadedness, Orthopnea, Palpitations, Paroxysmal Nocturnal Dyspnea, Pedal Edema, Radiating Pain, Rapid Heart Rate, Slow Heart Rate, Syncope, Other - Respiratory Respiratory: Cough, Dyspnea on Exertion - Gastrointestinal Gastrointestinal: absent: As Per HPI, Abdominal Pain, Belching, Bloating, Change in Bowel Habits, Change in Stool Character, Coffee Ground Emesis, Constipation, Cramping, Diarrhea, Dyspepsia, Dysphagia, Early Satiety, Excessive Flatus, Fecal Incontinence, Heartburn, Hematemesis, Hematochezia, Loose Stools, Melena, Nausea, Odynophagia, Temesmus, Vomiting, Other - Genitourinary Genitourinary: absent: As Per HPI, Change in Urinary Stream, Difficulty Urinating, Dysuria, Flank Pain, Hematuria, Pyuria, Nocturia, Urinary Incontinence, Urinary Frequency, Urinary Hesitance, Urinary Urgency, Voiding Freq/Small Amts, Freq UTI, Hx Renal/Bladder Calculi, Hx /Renal Surgery, Bladder Distension, Other - Reproductive: Female Reproductive:Female: absent: As Per HPI, Amenorrhea, Amenorrhea/ Control, Currently Menstual, Cycle <21 Days, Cycle >35 Days, Cycle Variable, Menses 1-7 Days, Menses >/= 8 Days, Menses Variable, Cycle > 4 Weeks Between, No Menses for 6 Months, Heavy Menses, Light Menses, Normal Menses, Spotting Between Cycles , S/P Hysterectomy, Menopausal, Post Menopausal, Premenarche, Abnormal Vaginal Bleeding, Dysmenorrhea, Dyspareunia, Genital Lesions, Genital Pruritis, Pelvic Pain, Prolapse Symptoms, Sexual Dysfunction, Vaginal Discharge, Vaginal Dryness , Vaginal Odor, Vaginal Pruritis, Other - Musculoskeletal Musculoskeletal: absent: As Per HPI, Abnormal Gait, Arthralgias, Atrophy, Back Pain, Deformity, Joint Swelling, Limited Range of Motion, Loss of Height, Muscle Cramps, Muscle Weakness, Myalgias, Neck Pain, Numbness, Radiating Pain into Limb, Stiffness, Tingling, Other - Integumentary Integumentary: absent: As Per HPI, Acne, Alopecia, Bleeding Lesions, Change in Hair, Change in Nails, Change in Pigmentation, Changing Lesions, Dry Skin, Erythema, Furuncle, Hirsutism, Lesions, New Lesions, Non-Healing Lesions, Photosensitivity, Pruritus, Rash, Skin Pain, Skin Ulcer, Sores, Striae, Swelling , Unusual Bruising, Wounds, Jaundice, Other - Neurological Neurological: absent: As Per HPI, Abnormal Gait, Abnormal Hearing, Abnormal Movements, Abnormal Speech, Behavioral Changes, Burning Sensations, Confusion, Convulsions, Disequilibrium, Dizziness, Numbness, Focal Weakness, Frequent Falls , Headaches, Lack of Coordination, Loss of Vision, Memory Loss, Paresthesias, Radicular Pain, Restless Legs, Sensory Deficit, Syncope, Tingling, Tremor, Vertigo, Weakness, Other Visual Disturbances, Other - Psychiatric Psychiatric: Depression - Endocrine Endocrine: absent: As Per HPI, Change in Body Appearance, Change in Libido, Cold Intolorance, Deepening of Voice, Excessive Sweating, Fatigue, Flushing, Heat Intolorance, Increase in Ring/Shoe/Hat Size, Palpitations, Polydipsia, Polyphagia, Polyuria, Other - Hematologic/Lymphatic Hematologic: absent: As Per HPI, Easy Bleeding, Easy Bruising, Lymphadenopathy, Other Past Patient History - Infectious Disease Hx of Infectious Diseases: None - Tetanus Immunizations Tetanus Immunization: Unknown - Past Medical History & Family History Past Medical History?: Yes - Past Social History Smoking Status: Light Smoker < 10 Cigarettes Daily Chewing Tobacco Use: No Cigar Use: No - CARDIAC Hx Hypertension: Yes - PULMONARY Hx Chronic Obstructive Pulmonary Disease (COPD): Yes - NEUROLOGICAL Hx Migraine: Yes - HEENT Hx HEENT Problems: No - RENAL Hx Chronic Kidney Disease: No - ENDOCRINE/METABOLIC Hx Hyperthyroidism: Yes (partial thyroidectomy) - HEMATOLOGICAL/ONCOLOGICAL Hx Anemia: Yes Hx Human Immunodeficiency Virus (HIV): Yes - INTEGUMENTARY Hx Dermatological Problems: No - MUSCULOSKELETAL/RHEUMATOLOGICAL Hx Arthritis: Yes Hx Falls: No - GASTROINTESTINAL Hx Gastritis: Yes - GENITOURINARY/GYNECOLOGICAL Hx Genitourinary Disorders: No - PSYCHIATRIC Hx Anxiety: Yes Hx Bipolar Disorder: Yes (???) Hx Depression: Yes Hx Substance Use: No - SURGICAL HISTORY Hx Cholecystectomy: Yes - ANESTHESIA Hx Anesthesia: Yes Hx Anesthesia Reactions: No Hx Malignant Hyperthermia: No Meds Allergies/Adverse Reactions: Allergies Allergy/AdvReac Type Severity Reaction Status Date / Time SEA SALT Allergy Intermediate RASH Uncoded 11/16/17 00:29 Physical Exam - Constitutional Appears: In Acute Distress (speaking in phrases) - Head Exam Head Exam: NORMAL INSPECTION, NORMOCEPHALIC - Eye Exam Eye Exam: Normal appearance (+ upper eyelid fullness; this is normal for pt) Pupil Exam: NORMAL ACCOMODATION - ENT Exam ENT Exam: Mucous Membranes Moist, Normal Exam - Neck Exam Neck exam: Positive for: Normal Inspection - Respiratory Exam Respiratory Exam: Prolonged Expiratory Phase, Wheezes - Cardiovascular Exam Cardiovascular Exam: REGULAR RHYTHM - GI/Abdominal Exam GI & Abdominal Exam: Normal Bowel Sounds - Rectal Exam Rectal Exam: Deferred - Neurological Exam Neurological exam: Alert, CN II-XII Intact, Normal Gait, Oriented x3, Reflexes Normal - Psychiatric Exam Psychiatric exam: Normal Affect, Normal Mood - Skin Skin Exam: Dry, Intact, Normal Color Results - Vital Signs Recent Vital Signs: Last Vital Signs Temp 98.4 F 11/17/17 00:00 Pulse 81 11/17/17 00:00 Resp 20 11/17/17 00:00 BP 137/81 11/17/17 00:00 Pulse Ox 98 11/17/17 00:00 - Labs Result Diagrams: 11/16/17 00:43 11/16/17 00:43 Labs: Laboratory Results - last 24 hr 11/16/17 11/16/17 13:50 13:50 TSH 3rd Generation 0.93 HIV 1&2 Antibody Screen Reactive Assessment & Plan (1) COPD with acute exacerbation Assessment and Plan: start iv steroids and regular neb treatments and assess response. Status: Acute (2) Hypochromic microcytic anemia Assessment and Plan: check iron levels Status: Acute (3) HIV (human immunodeficiency virus infection) Assessment and Plan: consult ID to manage and adjust meds as necessary Status: Acute Decision To Admit - Pt Status Changed To: Hospital Disposition Of: Inpatient - Admit Certification Admit to Inpatient:: After my assessment, the patient will require hospitalization for at least two midnights. This is because of the severity of symptoms shown, intensity of services needed, and/or the medical risk in this patient being treated as an outpatient. - InPatient: Physician Admission Certification:: After my assessment, the patient will require hospitalization for at least two midnights. This is because of the severity of symptoms shown, intensity of services needed, and/or the medical risk in this patient being treated as an outpatient. - . Bed Request Type: Telemetry
[2017-11-17 07:05] LABS: IRON 11 ug/dL (37-170)
[2017-11-17 07:15] LABS: % IRON SATURATION 3 (20-55); TOTAL IRON BINDING CAPACITY 404 ug/dL (250-450)
[2017-11-17 07:18] LABS: B-TYPE NATRIURETIC PEPTIDE 443 pg/mL (0-450)
[2017-11-17 07:45] LABS: FERRITIN 59.7 ng/mL
[2017-11-17] MEDS: Enoxaparin 40 mg Syringe SC SCH (09:45)
--- NOTE | 2017-11-17 09:55 | RAD ---
Date of service: 11/17/2017 HISTORY: accurate determination of heart size and pulm sta COMPARISON: No prior. TECHNIQUE: Chest PA and lateral FINDINGS: LUNGS: No active pulmonary disease. Trachea remains deviated to the right by a left thyroid mass/ left lobe enlargement. PLEURA: No significant pleural effusion identified. No pneumothorax apparent. CARDIOVASCULAR: Cardiomegaly is apparent with widening of the mediastinum appreciated and right greater left hilar prominence appear to be a function of lymphadenopathy as well as prominence of the main pulmonary artery which measured up to 3.8 cm on prior chest CT 05/13/2017. Pulmonary vascular congestion appears mild. OSSEOUS STRUCTURES: No significant abnormalities. VISUALIZED UPPER ABDOMEN: Normal. OTHER FINDINGS: None. IMPRESSION: Mild cardiomegaly with mild pulmonary vascular congestion identified. Main pulmonary segment is prominent and mild lymphadenopathy is likely reiterated though it may have increased in the interval based on chest CT 05/13/2017, widening the mediastinum. Rightward tracheal deviation is a function of left thyroid mass/enlargement.
--- NOTE | 2017-11-17 12:27 | CP.PCM.CON ---
History of Present Illness - History of Present Illness History of Present Illness: 47 yo AA female presented at the ED complaining of shortness of breath, with worsening over the past week. Also complaining of dyspnea on exertion and paroxysmal nocturnal dyspnea. No palpitations or chest pain. denies fever chills claims to be compliant with HIV Meds ( infected heterosexually ) on HAART Rx but not compliant with follow up > Pt also had ower extremity swelling, prob 2ndry to chronic DVT for which she had a All filter put in iin the remote past. Review of Systems - Review of Systems Systems not reviewed;Unavailable: Respiratory Distress (known COPD) - Constitutional Constitutional: absent: As Per HPI, Anorexia, Chills, Daytime Sleepiness, Excessive Sweating, Fatigue, Fever, Frequent Falls, Headache, Increased Appetite , Lethargy, Malaise, Night Sweats, Snoring, Sleep Apnea, Weight Gain, Weight Loss, Weakness, Other - EENT Eyes: absent: As Per HPI, Blind Spots, Blurred Vision, Change in Vision, Decreased Night Vision, Diplopia, Discharge, Dry Eye, Exophthalmos, Floaters, Irritation, Itchy Eyes, Loss of Peripheral Vision, Pain, Photophobia, Requires Corrective Lenses, Sees Flashes, Spots in Vision, Tunnel Vision, Other Visual Disturbances, Loss of Vision, Other - Breasts Breasts: absent: As Per HPI, Change in Shape, Mass, Pain, Nipple Discharge, Nipple Inversion, Skin Changes, Swelling, Other - Cardiovascular Cardiovascular: absent: As Per HPI, Acrocyanosis, Chest Pain, Chest Pain at Rest , Chest Pain with Activity, Claudication, Diaphoresis, Dyspnea, Dyspnea on Exertion, Edema, Irregular Heart Rhythm, Pain Radiating to Arm/Neck/Jaw, Leg Edema, Leg Ulcers, Lightheadedness, Orthopnea, Palpitations, Paroxysmal Nocturnal Dyspnea, Pedal Edema, Radiating Pain, Rapid Heart Rate, Slow Heart Rate, Syncope, Other - Respiratory Respiratory: Cough, Dyspnea on Exertion - Gastrointestinal Gastrointestinal: absent: As Per HPI, Abdominal Pain, Belching, Bloating, Change in Bowel Habits, Change in Stool Character, Coffee Ground Emesis, Constipation, Cramping, Diarrhea, Dyspepsia, Dysphagia, Early Satiety, Excessive Flatus, Fecal Incontinence, Heartburn, Hematemesis, Hematochezia, Loose Stools, Melena, Nausea, Odynophagia, Temesmus, Vomiting, Other - Genitourinary Genitourinary: absent: As Per HPI, Change in Urinary Stream, Difficulty Urinating, Dysuria, Flank Pain, Hematuria, Pyuria, Nocturia, Urinary Incontinence, Urinary Frequency, Urinary Hesitance, Urinary Urgency, Voiding Freq/Small Amts, Freq UTI, Hx Renal/Bladder Calculi, Hx /Renal Surgery, Bladder Distension, Other - Reproductive: Female Reproductive:Female: absent: As Per HPI, Amenorrhea, Amenorrhea/ Control, Currently Menstual, Cycle <21 Days, Cycle >35 Days, Cycle Variable, Menses 1-7 Days, Menses >/= 8 Days, Menses Variable, Cycle > 4 Weeks Between, No Menses for 6 Months, Heavy Menses, Light Menses, Normal Menses, Spotting Between Cycles , S/P Hysterectomy, Menopausal, Post Menopausal, Premenarche, Abnormal Vaginal Bleeding, Dysmenorrhea, Dyspareunia, Genital Lesions, Genital Pruritis, Pelvic Pain, Prolapse Symptoms, Sexual Dysfunction, Vaginal Discharge, Vaginal Dryness , Vaginal Odor, Vaginal Pruritis, Other - Musculoskeletal Musculoskeletal: absent: As Per HPI, Abnormal Gait, Arthralgias, Atrophy, Back Pain, Deformity, Joint Swelling, Limited Range of Motion, Loss of Height, Muscle Cramps, Muscle Weakness, Myalgias, Neck Pain, Numbness, Radiating Pain into Limb, Stiffness, Tingling, Other - Integumentary Integumentary: absent: As Per HPI, Acne, Alopecia, Bleeding Lesions, Change in Hair, Change in Nails, Change in Pigmentation, Changing Lesions, Dry Skin, Erythema, Furuncle, Hirsutism, Lesions, New Lesions, Non-Healing Lesions, Photosensitivity, Pruritus, Rash, Skin Pain, Skin Ulcer, Sores, Striae, Swelling , Unusual Bruising, Wounds, Jaundice, Other - Neurological Neurological: absent: As Per HPI, Abnormal Gait, Abnormal Hearing, Abnormal Movements, Abnormal Speech, Behavioral Changes, Burning Sensations, Confusion, Convulsions, Disequilibrium, Dizziness, Numbness, Focal Weakness, Frequent Falls , Headaches, Lack of Coordination, Loss of Vision, Memory Loss, Paresthesias, Radicular Pain, Restless Legs, Sensory Deficit, Syncope, Tingling, Tremor, Vertigo, Weakness, Other Visual Disturbances, Other - Psychiatric Psychiatric: Depression - Endocrine Endocrine: absent: As Per HPI, Change in Body Appearance, Change in Libido, Cold Intolorance, Deepening of Voice, Excessive Sweating, Fatigue, Flushing, Heat Intolorance, Increase in Ring/Shoe/Hat Size, Palpitations, Polydipsia, Polyphagia, Polyuria, Other - Hematologic/Lymphatic Hematologic: absent: As Per HPI, Easy Bleeding, Easy Bruising, Lymphadenopathy, Other Past Patient History - Infectious Disease Hx of Infectious Diseases: None - Tetanus Immunizations Tetanus Immunization: Unknown - Past Medical History & Family History Past Medical History?: Yes - Past Social History Smoking Status: Light Smoker < 10 Cigarettes Daily Chewing Tobacco Use: No Cigar Use: No - CARDIAC Hx Hypertension: Yes - PULMONARY Hx Chronic Obstructive Pulmonary Disease (COPD): Yes - NEUROLOGICAL Hx Migraine: Yes - HEENT Hx HEENT Problems: No - RENAL Hx Chronic Kidney Disease: No - ENDOCRINE/METABOLIC Hx Hyperthyroidism: Yes (partial thyroidectomy) - HEMATOLOGICAL/ONCOLOGICAL Hx Anemia: Yes Hx Human Immunodeficiency Virus (HIV): Yes - INTEGUMENTARY Hx Dermatological Problems: No - MUSCULOSKELETAL/RHEUMATOLOGICAL Hx Arthritis: Yes Hx Falls: No - GASTROINTESTINAL Hx Gastritis: Yes - GENITOURINARY/GYNECOLOGICAL Hx Genitourinary Disorders: No - PSYCHIATRIC Hx Anxiety: Yes Hx Bipolar Disorder: Yes (???) Hx Depression: Yes Hx Substance Use: No - SURGICAL HISTORY Hx Cholecystectomy: Yes - ANESTHESIA Hx Anesthesia: Yes Hx Anesthesia Reactions: No Hx Malignant Hyperthermia: No Meds Allergies/Adverse Reactions: Allergies Allergy/AdvReac Type Severity Reaction Status Date / Time SEA SALT Allergy Intermediate RASH Uncoded 11/16/17 00:29 - Medications Medications: Current Medications Albuterol Sulfate (Albuterol 0.083% Inhal Araceli (2.5 Mg/3 Ml) Ud) 2.5 mg INH RQ4 [facility] Last Admin: 11/17/17 11:38 Dose: 2.5 mg Aspirin (Ecotrin) 81 mg PO DAILY [facility] Last Admin: 11/17/17 09:41 Dose: 81 mg Clopidogrel Bisulfate (Plavix) 75 mg PO DAILY [facility] Last Admin: 11/17/17 09:41 Dose: 75 mg Enoxaparin Sodium (Lovenox) 40 mg SC DAILY [facility] Last Admin: 11/17/17 09:45 Dose: 40 mg Famotidine (Pepcid) 20 mg PO DAILY [facility] Last Admin: 11/17/17 09:44 Dose: 20 mg Methylprednisolone (Solu-Medrol) 30 mg IVP Q12H [facility] Last Admin: 11/17/17 02:17 Dose: 30 mg Rosuvastatin Calcium (Crestor) 2.5 mg PO HS [facility] Last Admin: 11/16/17 21:13 Dose: 2.5 mg Physical Exam - Constitutional Appears: No Acute Distress, Chronically Ill - Head Exam Head Exam: ATRAUMATIC, NORMOCEPHALIC - Eye Exam Eye Exam: absent: Scleral icterus - ENT Exam ENT Exam: Mucous Membranes Dry, Normal Oropharynx - Neck Exam Neck exam: Negative for: Lymphadenopathy - Respiratory Exam Respiratory Exam: Decreased Breath Sounds, Rhonchi - Cardiovascular Exam Cardiovascular Exam: Tachycardia, REGULAR RHYTHM, +S1, +S2 - GI/Abdominal Exam GI & Abdominal Exam: Diminished Bowel Sounds, Soft. absent: Tenderness - Rectal Exam Rectal Exam: Deferred - Exam Exam: NORMAL INSPECTION - Extremities Exam Extremities exam: Positive for: pedal edema, tenderness, pedal pulses present. Negative for: calf tenderness - Back Exam Back exam: absent: CVA tenderness (L), CVA tenderness (R), paraspinal tenderness - Neurological Exam Neurological exam: Alert, CN II-XII Intact, Oriented x3, Reflexes Normal - Psychiatric Exam Psychiatric exam: Depressed - Skin Skin Exam: Dry Results - Vital Signs Recent Vital Signs: Last Vital Signs Temp 98.3 F 11/17/17 07:38 Pulse 104 H 11/17/17 08:20 Resp 20 11/17/17 07:38 BP 137/96 H 11/17/17 07:38 Pulse Ox 96 11/17/17 07:38 - Labs Result Diagrams: 11/17/17 12:48 11/17/17 06:25 Labs: Laboratory Results - last 24 hr 11/16/17 11/16/17 11/17/17 13:50 13:50 06:25 Sickle Cell Screen Positive H Iron TIBC % Saturation Ferritin NT-Pro-B Natriuret Pep TSH 3rd Generation 0.93 HIV 1&2 Antibody Screen Reactive 11/17/17 11/17/17 06:25 06:25 Sickle Cell Screen Iron 11 L TIBC 404 % Saturation 3 L Ferritin 59.7 NT-Pro-B Natriuret Pep 443 TSH 3rd Generation HIV 1&2 Antibody Screen Assessment & Plan (1) COPD with acute exacerbation Status: Acute (2) Chest pain Status: Acute (3) Dyspnea Status: Acute (4) HIV (human immunodeficiency virus infection) Status: Acute - Assessment and Plan (Free Text) Assessment: cont HAART rx agree wwith your plan
[2017-11-17] MEDS: Emtricitabine/rilpivirine/tenofovir 1 TAB PO SCH (12:29)
[2017-11-17 12:52] LABS: BASO % 0.3 % (0.0-2.0); HEMOGLOBIN 10.8 g/dL (11.0-16.0); LYMPH # 0.6 K/uL (1.0-4.3); MEAN CELL VOLUME 75.9 fL (81.0-99.0); MEAN CORPUSCULAR HEMOGLOBIN 22.9 pg (27.0-31.0); MEAN CORPUSCULAR HGB CONC 30.2 g/dL (33.0-37.0); MEAN PLATELET VOLUME 9.3 fL (7.2-11.7); MONO # 0.1 K/uL (0.0-0.8); MONO % 2.5 % (0.0-10.0); NEUT # 4.6 K/uL (1.8-7.0); NEUT % 85.2 % (50.0-75.0); NRBC % 1.1 % (0.0-2.0); RBC 4.7 Mil/uL (3.80-5.20); RED CELL DISTRIBUTION WIDTH 23.2 % (11.5-14.5); WHITE BLOOD COUNT 5.4 K/uL (4.8-10.8)
[2017-11-17 13:12] LABS: ALB/GLOB RATIO 0.8 (1.0-2.1); ALBUMIN 3.3 g/dL (3.5-5.0); ALT/SGPT 20 U/L (9-52); AST/SGOT 29 U/L (14-36); BLOOD UREA NITROGEN 16 mg/dL (7-17); CALCIUM 9.6 mg/dl (8.6-10.4); GFR AFRICAN-AMERICAN > 60; GFR NON-AFRICAN AMERICAN > 60
--- NOTE | 2017-11-17 17:00 | CP.PCM.PN ---
Subjective - Date & Time of Evaluation Date of Evaluation: 11/17/17 Time of Evaluation: 09:00 - Subjective Subjective: c/o cough and congestion no fever positive back pain Objective - Vital Signs/Intake and Output Vital Signs (last 24 hours): Temp Pulse Resp BP Pulse Ox 98.1 F 102 H 20 130/70 95 11/17/17 15:38 11/17/17 15:54 11/17/17 15:38 11/17/17 15:38 11/17/17 15:38 Intake and Output: 11/17/17 11/17/17 06:59 18:59 Intake Total 800 Balance 800 - Medications Medications: Current Medications Albuterol Sulfate (Albuterol 0.083% Inhal Araceli (2.5 Mg/3 Ml) Ud) 2.5 mg INH RQ4 [facility] Last Admin: 11/17/17 16:13 Dose: 2.5 mg Aspirin (Ecotrin) 81 mg PO DAILY [facility] Last Admin: 11/17/17 09:41 Dose: 81 mg Clopidogrel Bisulfate (Plavix) 75 mg PO DAILY [facility] Last Admin: 11/17/17 09:41 Dose: 75 mg Enoxaparin Sodium (Lovenox) 40 mg SC DAILY [facility] Last Admin: 11/17/17 09:45 Dose: 40 mg Famotidine (Pepcid) 20 mg PO DAILY [facility] Last Admin: 11/17/17 09:44 Dose: 20 mg Ceftriaxone Sodium 1 gm/ (Sodium Chloride) 100 mls @ 100 mls/hr IVPB Q12H [facility] PRN Reason: Protocol Methylprednisolone (Solu-Medrol) 30 mg IVP Q12H [facility] Last Admin: 11/17/17 13:26 Dose: 30 mg Rosuvastatin Calcium (Crestor) 2.5 mg PO HS [facility] Last Admin: 11/16/17 21:13 Dose: 2.5 mg - Labs Labs: 11/17/17 12:48 11/17/17 06:25 PT 13.1 SECONDS (9.7-12.2) H 11/16/17 00:43 INR 1.2 11/16/17 00:43 APTT 28 SECONDS (21-34) 11/16/17 00:43 - Constitutional Appears: Non-toxic, Chronically Ill - Head Exam Head Exam: NORMOCEPHALIC - Eye Exam Eye Exam: PERRL. absent: Scleral icterus - ENT Exam ENT Exam: Mucous Membranes Dry - Neck Exam Neck Exam: absent: Lymphadenopathy - Respiratory Exam Respiratory Exam: Decreased Breath Sounds, Prolonged Expiratory Phase, Rhonchi - Cardiovascular Exam Cardiovascular Exam: REGULAR RHYTHM, +S1, +S2 - GI/Abdominal Exam GI & Abdominal Exam: Distended, Soft - Rectal Exam Rectal Exam: Deferred - Exam Exam: NORMAL INSPECTION - Extremities Exam Extremities Exam: Pedal Edema, Tenderness. absent: Calf Tenderness - Back Exam Back Exam: absent: CVA tenderness (L), CVA tenderness (R) - Neurological Exam Neurological Exam: Alert, Awake, Oriented x3 - Psychiatric Exam Psychiatric exam: Normal Mood - Skin Skin Exam: Dry Assessment and Plan (1) COPD with acute exacerbation Status: Acute (2) Chest pain Status: Acute (3) Dyspnea Status: Acute (4) HIV (human immunodeficiency virus infection) Status: Acute - Assessment and Plan (Free Text) Assessment: add rocephin check U/A await cultures brochodilators consider cardio eval
[2017-11-17] MEDS: Ferric Sodium Gluconat Complex 62.5 mg/5 ml Vial IVPB SCH (17:50)
[2017-11-17] MEDS ORDERED: Sod Polystyrene Sulf 15 gm/60 ml Susp PO ONE (18:21)
--- NOTE | 2017-11-17 18:27 | CP.PCM.CON ---
History of Present Illness - History of Present Illness History of Present Illness: Patient is a 47 year old female with a history of HIV, COPD, HTN, depression, anxiety, bipolar disorder, arthritis, DVT (IVC filter placed June 2014), hyperthyroidism who presented to the ED For shortness of breath, cough, throat pain, difficulty swallowing, and swelling of legs. also complaining of nocturnal snorting and feel very tired and sleepy during the Daytime. PMH: anxiety, arthritis, bipolar disorder, COPD, depression, DVT ( IVC Filter placed June 2014), HIV, HTN, hyperthyroidism PSH: cholecystectomy, thyroid surgery, ankle surgery Social hx: (+) smoker >10 cigarettes daily, (-) ETOH or drug use. HIV positive Allergies: sea salt Review of Systems - Review of Systems All systems: reviewed and no additional remarkable complaints except (shortness of breath, cough, throat pain and difficulty swallowing) Past Patient History - Infectious Disease Hx of Infectious Diseases: None - Tetanus Immunizations Tetanus Immunization: Unknown - Past Medical History & Family History Past Medical History?: Yes - Past Social History Smoking Status: Light Smoker < 10 Cigarettes Daily Chewing Tobacco Use: No Cigar Use: No - CARDIAC Hx Hypertension: Yes - PULMONARY Hx Chronic Obstructive Pulmonary Disease (COPD): Yes - NEUROLOGICAL Hx Migraine: Yes - HEENT Hx HEENT Problems: No - RENAL Hx Chronic Kidney Disease: No - ENDOCRINE/METABOLIC Hx Hyperthyroidism: Yes (partial thyroidectomy) - HEMATOLOGICAL/ONCOLOGICAL Hx Anemia: Yes Hx Human Immunodeficiency Virus (HIV): Yes - INTEGUMENTARY Hx Dermatological Problems: No - MUSCULOSKELETAL/RHEUMATOLOGICAL Hx Arthritis: Yes Hx Falls: No - GASTROINTESTINAL Hx Gastritis: Yes - GENITOURINARY/GYNECOLOGICAL Hx Genitourinary Disorders: No - PSYCHIATRIC Hx Anxiety: Yes Hx Bipolar Disorder: Yes (???) Hx Depression: Yes Hx Substance Use: No - SURGICAL HISTORY Hx Cholecystectomy: Yes - ANESTHESIA Hx Anesthesia: Yes Hx Anesthesia Reactions: No Hx Malignant Hyperthermia: No Meds Allergies/Adverse Reactions: Allergies Allergy/AdvReac Type Severity Reaction Status Date / Time SEA SALT Allergy Intermediate RASH Uncoded 11/16/17 00:29 - Medications Medications: Current Medications Albuterol Sulfate (Albuterol 0.083% Inhal Araceli (2.5 Mg/3 Ml) Ud) 2.5 mg INH RQ4 [facility] Last Admin: 11/17/17 16:13 Dose: 2.5 mg Aspirin (Ecotrin) 81 mg PO DAILY [facility] Last Admin: 11/17/17 09:41 Dose: 81 mg Clopidogrel Bisulfate (Plavix) 75 mg PO DAILY [facility] Last Admin: 11/17/17 09:41 Dose: 75 mg Enoxaparin Sodium (Lovenox) 40 mg SC DAILY [facility] Last Admin: 11/17/17 09:45 Dose: 40 mg Famotidine (Pepcid) 20 mg PO DAILY [facility] Last Admin: 11/17/17 09:44 Dose: 20 mg Ferric Sodium Gluconate Complex (Ferrlecit) 125 mg IVPB DAILY [facility] Stop: 11/19/17 10:01 Last Admin: 11/17/17 17:50 Dose: 125 mg Ceftriaxone Sodium 1 gm/ (Sodium Chloride) 100 mls @ 100 mls/hr IVPB Q12H [facility] PRN Reason: Protocol Last Admin: 11/17/17 18:22 Dose: 100 mls/hr Methylprednisolone (Solu-Medrol) 40 mg IVP Q8H [facility] Rosuvastatin Calcium (Crestor) 2.5 mg PO HS [facility] Last Admin: 11/16/17 21:13 Dose: 2.5 mg Sodium Polystyrene Sulfonate (Kayexalate Susp) 15 gm PO ONCE ONE Stop: 11/17/17 18:22 Physical Exam - Head Exam Head Exam: ATRAUMATIC, NORMOCEPHALIC - ENT Exam ENT Exam: Mucous Membranes Moist - Neck Exam Neck exam: Positive for: Normal Inspection - Respiratory Exam Respiratory Exam: Rhonchi - Cardiovascular Exam Cardiovascular Exam: REGULAR RHYTHM - GI/Abdominal Exam GI & Abdominal Exam: Normal Bowel Sounds - Extremities Exam Extremities exam: Positive for: pedal edema Results - Vital Signs Recent Vital Signs: Last Vital Signs Temp 98.1 F 11/17/17 15:38 Pulse 102 H 11/17/17 15:54 Resp 20 11/17/17 15:38 BP 130/70 11/17/17 15:38 Pulse Ox 95 11/17/17 15:38 - Labs Result Diagrams: 11/17/17 12:48 11/17/17 06:25 Labs: Laboratory Results - last 24 hr 11/17/17 11/17/17 11/17/17 06:25 06:25 06:25 WBC RBC Hgb Hct MCV MCH MCHC RDW Plt Count MPV Neut % (Auto) Lymph % (Auto) Summers % (Auto) Eos % (Auto) Baso % (Auto) Neut # (Auto) Lymph # (Auto) Summers # (Auto) Eos # (Auto) Baso # (Auto) Sickle Cell Screen Positive H Sodium 141 Potassium 5.5 H Chloride 102 Carbon Dioxide 32 H Anion Gap 12 BUN 16 Creatinine 0.7 Est GFR ( Amer) > 60 Est GFR (Non-Af Amer) > 60 Random Glucose 144 H Calcium 9.6 Iron 11 L TIBC 404 % Saturation 3 L Ferritin 59.7 Total Bilirubin 0.4 AST 29 ALT 20 Alkaline Phosphatase 97 NT-Pro-B Natriuret Pep 443 Total Protein 7.4 Albumin 3.3 L Globulin 4.1 H Albumin/Globulin Ratio 0.8 L 11/17/ 12:48 WBC 5.4 RBC 4.70 Hgb 10.8 L Hct 35.7 MCV 75.9 L MCH 22.9 L MCHC 30.2 L RDW 23.2 H Plt Count 145 MPV 9.3 Neut % (Auto) 85.2 H Lymph % (Auto) 12.0 L Summers % (Auto) 2.5 Eos % (Auto) 0.0 Baso % (Auto) 0.3 Neut # (Auto) 4.6 Lymph # (Auto) 0.6 L Summers # (Auto) 0.1 Eos # (Auto) 0.0 Baso # (Auto) 0.0 Sickle Cell Screen Sodium Potassium Chloride Carbon Dioxide Anion Gap BUN Creatinine Est GFR ( Amer) Est GFR (Non-Af Amer) Random Glucose Calcium Iron TIBC % Saturation Ferritin Total Bilirubin AST ALT Alkaline Phosphatase NT-Pro-B Natriuret Pep Total Protein Albumin Globulin Albumin/Globulin Ratio Assessment & Plan (1) COPD with acute exacerbation Status: Acute Comment: continue nebulizer treatment and IV steroids. CAT scan of the chest and neck as patient complaining cough difficulty swallowing, neck pain. BiPAP at night as patient is a chronic retainer of CO2 and most likely has obstructive sleep apnea (2) SKYLAR and COPD overlap syndrome Status: Acute (3) HIV (human immunodeficiency virus infection) Status: Acute (4) Deep venous thrombosis of lower extremity Status: Acute
--- NOTE | 2017-11-17 20:42 | CP.PCM.PN ---
Subjective - Date & Time of Evaluation Date of Evaluation: 11/17/17 Time of Evaluation: 20:30 - Subjective Subjective: I had ordered a repeat of pt's CXR today to ascertain what is apparently a change in pt's cardiac anatomy: portable CXR was read as severe cardiomegaly whereas, if memory serves, pt had normal cardiac size and function without coronary arterosclerosis from the cardiac cath done 05/22/2017. Not only did the 2-view CXR reveal cardiac enalargement, it also showed: 1) deviated trachea to the right from, 2) an enlarged thyroid, 3) lymphadenopathy in the mediastinum with 4) hilar widening and 5) prominent L pulmonary artery. > When I spoke to the patient, pt did admit that about 2 weeks ago, right after taking her iron pill, she started feeling bad and this feeling of not being right persisted until she came to the ER yesterday. When I queried her about her thyroid, she said she suspected it had come back, because for a certain amount of time which pt could not quantify, she had increasing neck pain and difficulty swallowing. These were the same symptoms she had in the past when she had her first bout of hyperthyroidism. Informed pt that at the very least, her enlarged thyroid was pushing on her trachea causing some degree of respiratory obstruction and hence, her dyspnea. Pt verbalized understadning. I also informed pt of the findings in her chest, inclduing fingdings 3,4,5, in the preceding paragraph, and that work up for her condition is in process. Objective - Vital Signs/Intake and Output Vital Signs (last 24 hours): Temp Pulse Resp BP Pulse Ox 98.1 F 102 H 20 130/70 95 11/17/17 15:38 11/17/17 15:54 11/17/17 15:38 11/17/17 15:38 11/17/17 15:38 - Medications Medications: Current Medications Albuterol Sulfate (Albuterol 0.083% Inhal Araceli (2.5 Mg/3 Ml) Ud) 2.5 mg INH RQ4 [facility] Last Admin: 11/17/17 20:16 Dose: 2.5 mg Aspirin (Ecotrin) 81 mg PO DAILY [facility] Last Admin: 11/17/17 09:41 Dose: 81 mg Clopidogrel Bisulfate (Plavix) 75 mg PO DAILY [facility] Last Admin: 11/17/17 09:41 Dose: 75 mg Enoxaparin Sodium (Lovenox) 40 mg SC DAILY [facility] Last Admin: 11/17/17 09:45 Dose: 40 mg Famotidine (Pepcid) 20 mg PO DAILY [facility] Last Admin: 11/17/17 09:44 Dose: 20 mg Ferric Sodium Gluconate Complex (Ferrlecit) 125 mg IVPB DAILY [facility] Stop: 11/19/17 10:01 Last Admin: 11/17/17 17:50 Dose: 125 mg Ceftriaxone Sodium 1 gm/ (Sodium Chloride) 100 mls @ 100 mls/hr IVPB Q12H [facility] PRN Reason: Protocol Last Admin: 11/17/17 18:22 Dose: 100 mls/hr Methylprednisolone (Solu-Medrol) 40 mg IVP Q8H [facility] Last Admin: 11/17/17 18:35 Dose: 40 mg Rosuvastatin Calcium (Crestor) 2.5 mg PO HS [facility] Last Admin: 11/16/17 21:13 Dose: 2.5 mg - Labs Labs: 11/17/17 12:48 11/17/17 06:25 PT 13.1 SECONDS (9.7-12.2) H 11/16/17 00:43 INR 1.2 11/16/17 00:43 APTT 28 SECONDS (21-34) 11/16/17 00:43 Assessment and Plan (1) COPD with acute exacerbation Assessment & Plan: appears to be improving with current mgt when i talked with pt did not appreciate any wheezing Status: Acute (2) Hypochromic microcytic anemia Assessment & Plan: started pt on iron supplementation Status: Acute (3) HIV (human immunodeficiency virus infection) Status: Acute (4) Thyromegaly Status: Acute (5) Hilar adenopathy Status: Acute (6) Hypercoagulable state Status: Acute (7) Dyspnea Status: Acute
[2017-11-17 20:58] LABS: TROPONIN I 0.02 ng/mL (0.00-0.120)
[2017-11-18] MEDS: Albuterol 0.083% Inhal Sol (2.5 mg/3 mL) UD INH SCH ×6 (00:50→19:41)
[2017-11-18] MEDS: MethylPREDNISolone 40 mg Vial IVP SCH ×3 (03:59→18:36)
[2017-11-18] MEDS ORDERED: Iodixanol 320 MG/ML 100 ML BOTTLE IV ONE (11:00)
[2017-11-18] MEDS: Emtricitabine/rilpivirine/tenofovir 1 TAB PO SCH (12:12)
[2017-11-18] MEDS: Ferric Sodium Gluconat Complex 62.5 mg/5 ml Vial IVPB SCH (12:12)
[2017-11-18] MEDS: Enoxaparin 40 mg Syringe SC SCH (12:12)
--- NOTE | 2017-11-18 13:21 | CP.PCM.PN ---
<YamilaAbi L. - Last Filed: 11/18/17 17:35> Subjective - Date & Time of Evaluation Date of Evaluation: 11/18/17 Time of Evaluation: 13:00 - Subjective Subjective: PGY2 Consult note for Dr. Valdes Patient is a 47 year old obese female, with a past medical history of hypertension, anemia, hypercholesteremia, chronic deep venous thrombi with IVC placement in 2014, HIV, hyperthyroidism, anxiety, bipolar disorder, depression; past surgical history of partial thyroidectomy and plication of IVC, who presented to the emergency department on 11/16/2017 with complaints of worsening lower extremity edema with associated 10/10 pain (left > right) that began ~2 weeks ago. The pain was mainly on the dorsal aspect of the foot, from the toes to the ankles. Pain subsides if she is resting, and worsens if palpating the area. She notes numbness and tingling that started at the toes, and radiated along the lateral aspect of the leg to the thigh. Patient also noticed bumps along the lee. She does get similar bumps, but they are behind the knee. In April she was seen in the clinic with similar leg swelling and pain (right>left), during which time she was told that she has a DVT. Patient was asked to return at a later date as the person who does the test for DVTs was not there at the time, but she did not follow up. She did take the medication she was prescribed, and right leg symptoms decreased. In addition, patient reports persistent shortness of breath, paroxysmal nocturnal dyspnea, and 2/10 chest pain for the past month. She is unable to walk more than a few steps before she experiences symptoms, so she has very limited activity. If she moves around a lot, or walks, she also develops cough. Patient also feels like her body is fatigued due to symptoms. She does have a nebulizer at home, but did not start using it until October 25, 2017, and has not noticed improvement in symptoms. She sleeps on the couch, sitting upright, due to symptoms. Patient has recently developed gagging episodes due to shortness of breath. She denies syncope, palpitations, diaphoresis, shoulder pain. Patient had cath performed 08/03/2017, by Dr. Valdes, and was told to f/u in the office in October, but was unable to do so because of her dyspnea. Patient reports neck pain, worse with swallowing. She also feels a ball in her throat, sometimes experiencing a choking sensation when she swallows. She does not recall what symptoms she had in 5007-1284, which led to having a partial thyroidectomy. She is compliant with her daily medications. She is not sure when her CD4 count was last checked. She has not taken psychiatric medications for the past year. No other acute complaints at this time. Surgical Hx: Partial thyroidectomy (2005), C- Section, cholecystectomy, Fluoroscopy of left heart and multiple coronary arteries, Plication of vena cava measure of cardiac sample and pressure of left heart (05/12/17) Social History:Smoked a pack of day for 20 years, now smokes ~4 cigarettes a day , Drinks socially, denies drugs Home medications: Albuterol, Aspirin, Lovenox, Pepcid, Iron, Crestor Allergies: NKDA Past family history: Mother: heart disease, unsure of details Objective - Vital Signs/Intake and Output Vital Signs (last 24 hours): Temp Pulse Resp BP Pulse Ox 97.7 F 90 20 131/88 95 11/18/17 08:45 11/18/17 08:48 11/18/17 08:45 11/18/17 08:45 11/18/17 08:45 Intake and Output: 11/18/17 11/18/17 06:59 18:59 Intake Total 400 Balance 400 - Medications Medications: Current Medications Albuterol Sulfate (Albuterol 0.083% Inhal Araceli (2.5 Mg/3 Ml) Ud) 2.5 mg INH RQ4 [facility] Last Admin: 11/18/17 07:35 Dose: 2.5 mg Aspirin (Ecotrin) 81 mg PO DAILY [facility] Last Admin: 11/18/17 12:11 Dose: 81 mg Clopidogrel Bisulfate (Plavix) 75 mg PO DAILY [facility] Last Admin: 11/18/17 12:12 Dose: 75 mg Enoxaparin Sodium (Lovenox) 40 mg SC DAILY [facility] Last Admin: 11/18/17 12:12 Dose: 40 mg Famotidine (Pepcid) 20 mg PO DAILY [facility] Last Admin: 11/18/17 12:12 Dose: 20 mg Ferric Sodium Gluconate Complex (Ferrlecit) 125 mg IVPB DAILY [facility] Stop: 11/19/17 10:01 Last Admin: 11/18/17 12:12 Dose: 125 mg Ceftriaxone Sodium 1 gm/ (Sodium Chloride) 100 mls @ 100 mls/hr IVPB Q12H [facility] PRN Reason: Protocol Last Admin: 11/18/17 06:36 Dose: 100 mls/hr Methylprednisolone (Solu-Medrol) 40 mg IVP Q8H [facility] Last Admin: 11/18/17 12:13 Dose: 40 mg Rosuvastatin Calcium (Crestor) 2.5 mg PO HS [facility] Last Admin: 11/16/17 21:13 Dose: 2.5 mg - Labs Labs: 11/17/17 12:48 11/17/17 06:25 PT 13.1 SECONDS (9.7-12.2) H 11/16/17 00:43 INR 1.2 11/16/17 00:43 APTT 28 SECONDS (21-34) 11/16/17 00:43 - Constitutional Appears: Non-toxic, No Acute Distress - Head Exam Head Exam: ATRAUMATIC, NORMAL INSPECTION, NORMOCEPHALIC - Eye Exam Eye Exam: EOMI, Normal appearance - ENT Exam ENT Exam: Mucous Membranes Dry - Neck Exam Neck Exam: Thyromegaly - Respiratory Exam Respiratory Exam: Decreased Breath Sounds, Rhonchi - Cardiovascular Exam Cardiovascular Exam: REGULAR RHYTHM, RRR, +S1, +S2 - GI/Abdominal Exam GI & Abdominal Exam: Soft, Normal Bowel Sounds. absent: Tenderness - Extremities Exam Extremities Exam: Pedal Edema, Tenderness - Neurological Exam Neurological Exam: Alert, Awake, Oriented x3 - Psychiatric Exam Psychiatric exam: Normal Affect, Normal Mood - Skin Skin Exam: Intact, Normal Color, Warm Assessment and Plan - Assessment and Plan (Free Text) Assessment: COPD exacerbation nebulizer treatments IV steroids CT chest and neck Dr. Roman consulted- as per Dr. Roman probably SKYLAR component Ceftriaxone 1 gm q12h Cardiomegaly seen on cxray ECHO (11/18/17): LVEF is normal. no regional wall motion abnormalities noted. left atrium is mildly dilated Hx DVTs with IVC filter LE doppler: Chronic DVTs bilaterally Plavix 75mg po daily Aspirin 81mg po daily Lovenox 40mg sc daily Thyroid Mass neck ct: enlarged multinodular left thyroid lobe resulting in mass effect on the oropharynx, hypopharynx and trache with displacement to the right without luminal narrowing. Enlarged multinodular left thyroid lobe also extends into the superior mediastinum. f/u Thyroid ultrasound HLD Crestor 2.5mg po HS HIV continue HAART therapy Dr. Schaefer consulted for medication therapy in patient Microcytic Anemia Ferrlecit 125mg ivpb daily continue to monitor sickle cell screen positive, f/u further hematologic studies to determine cause of hypercoagulability Discussed with Dr. Valdes <Jonathan Valdes - Last Filed: 11/18/17 22:54> Objective - Vital Signs/Intake and Output Vital Signs (last 24 hours): Temp Pulse Resp BP Pulse Ox 97.2 F L 84 20 138/92 H 96 11/18/17 16:00 11/18/17 22:11 11/18/17 16:00 11/18/17 16:00 11/18/17 16:00 - Medications Medications: Current Medications Albuterol Sulfate (Albuterol 0.083% Inhal Araceli (2.5 Mg/3 Ml) Ud) 2.5 mg INH RQ4 [facility] Last Admin: 11/18/17 19:41 Dose: 2.5 mg Aspirin (Ecotrin) 81 mg PO DAILY [facility] Last Admin: 11/18/17 12:11 Dose: 81 mg Clopidogrel Bisulfate (Plavix) 75 mg PO DAILY [facility] Last Admin: 11/18/17 12:12 Dose: 75 mg Enoxaparin Sodium (Lovenox) 40 mg SC DAILY [facility] Last Admin: 11/18/17 12:12 Dose: 40 mg Famotidine (Pepcid) 20 mg PO DAILY [facility] Last Admin: 11/18/17 12:12 Dose: 20 mg Ferric Sodium Gluconate Complex (Ferrlecit) 125 mg IVPB DAILY [facility] Stop: 11/19/17 10:01 Last Admin: 11/18/17 12:12 Dose: 125 mg Ceftriaxone Sodium 1 gm/ (Sodium Chloride) 100 mls @ 100 mls/hr IVPB Q12H [facility] PRN Reason: Protocol Last Admin: 11/18/17 18:35 Dose: 100 mls/hr Methylprednisolone (Solu-Medrol) 40 mg IVP Q8H [facility] Last Admin: 11/18/17 18:36 Dose: 40 mg Rosuvastatin Calcium (Crestor) 2.5 mg PO HS [facility] Last Admin: 11/18/17 22:24 Dose: 2.5 mg - Labs Labs: 11/18/17 13:58 11/18/17 13:58 PT 13.1 SECONDS (9.7-12.2) H 11/16/17 00:43 INR 1.2 11/16/17 00:43 APTT 28 SECONDS (21-34) 11/16/17 00:43 Assessment and Plan - Assessment and Plan (Free Text) Assessment: Patient seen and evaluated personally by me. Plan of care d/w the medical insurance claims processor and as documented
--- NOTE | 2017-11-18 13:32 | CT ---
Date of service: 11/18/2017 PROCEDURE: CT NECK WITH CONTRAST HISTORY: thyroid mass, lymphadenopathy COMPARISON: None TECHNIQUE: CT of the neck with intravenous contrast. Coronal and sagittal reformats generated. Intravenous contrast dose: 100 mL Visipaque Radiation dose: DLP 548.15 mGy-cm This CT exam was performed using one or more of the following dose reduction techniques: Automated exposure control, adjustment of the mA and/or kV according to patient size, and/or use of iterative reconstruction technique. FINDINGS: NASOPHARYNX: There is mild adenoid hypertrophy. SUPRAHYOID NECK: Unremarkable oropharynx, oral cavity, parapharyngeal space and retropharyngeal space. INFRAHYOID NECK: The larynx, hypopharynx, and supraglottic space are displaced to the right narrowing of the airways. Vocal cords intact. GLANDS: Parotid and submandibular glands unremarkable. There is asymmetric enlargement of the left thyroid lobe which measures 5.2 x 5.5 x 9.7 cm. There are multiple variable sized nodules, the largest ill-defined upper pole nodule measures 2.5 x 4.0 cm. The enlarged multinodular left thyroid lobe extends retrosternally and into the superior mediastinal with displacement of the trachea to the right. No narrowing of the tracheal lumen. Superiorly, the enlarged left thyroid lobe causes mass effect on the there injury quadrant displacement of the oropharynx and hypopharynx to the left. Laterally, the enlarged thyroid lobe results in mild lateral displacement of the common carotid artery and internal jugular vein without luminal narrowing. The right thyroid lobe is normal in size with homogeneous enhancement. LYMPH NODES: Subcentimeter cervical chain lymph nodes. No pathologic lymphadenopathy. CERVICAL SPINE: No fracture or focal lesion. Multilevel degenerative changes at C5-6 and C6-7. VASCULAR STRUCTURES: There is normal intravascular enhancement. OTHER FINDINGS: None. IMPRESSION: 1. Enlarged multinodular left thyroid lobe resulting in mass effect on the oropharynx, hypopharynx and trachea with displacement to the right without luminal narrowing. The enlarged multinodular left thyroid lobe also extends into the superior mediastinum. The largest ill-defined nodule in the left upper pole measures 2.5 x 4.0 cm. A dedicated thyroid ultrasound is recommended for further characterization of the nodules. Ultrasound-guided biopsy may be performed as clinically indicated. 2. No pathologic lymphadenopathy.
--- NOTE | 2017-11-18 14:05 | CARD ---
APPROVED REPORT Date of service: 11/18/2017 EXAM: Two-dimensional and M-mode echocardiogram with Doppler and color Doppler. INDICATION Dyspnea Chest Pain COPD RISK FACTORS Hypertension 2D DIMENSIONS IVSd1.2 (0.7-1.1cm)LVDd5.2 (3.9-5.9cm) PWd1.2 (0.7-1.1cm)LVDs3.7 (2.5-4.0cm) FS (%) 28.3 %LVEF (%)54.2 (>50%) M-Mode DIMENSIONS Left Atrium (MM)4.16 (2.5-4.0cm)IVSd1.27 (0.7-1.1cm) Aortic Root3.33 (2.2-3.7cm)LVDd5.50 (4.0-5.6cm) Aortic Cusp Exc.2.39 (1.5-2.0cm)PWd1.05 (0.7-1.1cm) FS (%) 33 %LVDs3.70 (2.0-3.8cm) LVEF (%)61 (>50%) Mitral Valve MV E [id number]/sMV A Qnkoijgp38.3cm/sE/A ratio1.0 TDI E/Lateral E'0.0E/Medial E'0.0 Tricuspid Valve TR Peak [id number]/sTR Peak [id number] LEFT VENTRICLE The left ventricle is normal size. There is normal left ventricular wall thickness. The left ventricular function is normal. The left ventricular ejection fraction is within the normal range. No regional wall motion abnormalities noted. Transmitral Doppler flow pattern is Grade I-abnormal relaxation pattern.. No left ventricle thrombus noted on this study. There is no ventricular septal defect visualized. There is no left ventricular aneurysm. There is no mass noted in the left ventricle. RIGHT VENTRICLE The right ventricle is normal size. There is normal right ventricular wall thickness. The right ventricular systolic function is normal. ATRIA The left atrium is mildly dilated. The right atrium size is normal. The interatrial septum is intact with no evidence for an atrial septal defect. AORTIC VALVE The aortic valve is normal in structure and function. No aortic regurgitation is present. There is no aortic valvular stenosis. There is no aortic valvular vegetation. MITRAL VALVE The mitral valve is normal in structure and function. There is no evidence of mitral valve prolapse. There is no mitral valve stenosis. There is no mitral valve regurgitation noted. TRICUSPID VALVE The tricuspid valve is normal in structure and function. There is mild tricuspid regurgitation. Right ventricular systolic pressure is estimated at 30-40 mmHg. There is no tricuspid valve prolapse or vegetation. There is no tricuspid valve stenosis. PULMONIC VALVE The pulmonary valve is normal in structure and function. There is no pulmonic valvular regurgitation. There is no pulmonic valvular stenosis. GREAT VESSELS The aortic root is normal in size. The ascending aorta is normal in size. The pulmonary artery is normal. The IVC is normal in size and collapses >50% with inspiration. PERICARDIAL EFFUSION The pericardium appears normal. There is no pleural effusion. <Conclusion> The left ventricular function is normal. The left ventricular ejection fraction is within the normal range. No regional wall motion abnormalities noted. The left atrium is mildly dilated.
[2017-11-18 14:07] LABS: HEMOGLOBIN 10.5 g/dL (11.0-16.0); MEAN CELL VOLUME 76.3 fL (81.0-99.0); MEAN CORPUSCULAR HEMOGLOBIN 23.4 pg (27.0-31.0); MEAN CORPUSCULAR HGB CONC 30.7 g/dL (33.0-37.0); MEAN PLATELET VOLUME 9.1 fL (7.2-11.7); RBC 4.49 Mil/uL (3.80-5.20); RED CELL DISTRIBUTION WIDTH 23.7 % (11.5-14.5); WHITE BLOOD COUNT 6.7 K/uL (4.8-10.8)
[2017-11-18 14:24] LABS: ALB/GLOB RATIO 0.8 (1.0-2.1); ALBUMIN 3.4 g/dL (3.5-5.0); ALT/SGPT 25 U/L (9-52); AST/SGOT 32 U/L (14-36); BLOOD UREA NITROGEN 13 mg/dL (7-17); CALCIUM 10.1 mg/dl (8.6-10.4); GFR AFRICAN-AMERICAN > 60; GFR NON-AFRICAN AMERICAN > 60
--- NOTE | 2017-11-18 17:08 | CP.PCM.PN ---
Subjective - Date & Time of Evaluation Date of Evaluation: 11/18/17 Time of Evaluation: 11:55 - Subjective Subjective: Patient seen and examined Sitting comfortably in no acute distress Still complaining off difficulty swallowing Breathing much better The patient states that she sleeps better with BiPAP Echocardiogram showed normal ejection fraction and no pulmonary hypertension CAT scan of the neck showed thyroid mass pushing the trachea Objective - Vital Signs/Intake and Output Vital Signs (last 24 hours): Temp Pulse Resp BP Pulse Ox 97.2 F L 91 H 20 138/92 H 96 11/18/17 16:00 11/18/17 16:00 11/18/17 16:00 11/18/17 16:00 11/18/17 16:00 Intake and Output: 11/18/17 11/18/17 06:59 18:59 Intake Total 400 Balance 400 - Medications Medications: Current Medications Albuterol Sulfate (Albuterol 0.083% Inhal Araceli (2.5 Mg/3 Ml) Ud) 2.5 mg INH RQ4 [facility] Last Admin: 11/18/17 15:43 Dose: 2.5 mg Aspirin (Ecotrin) 81 mg PO DAILY [facility] Last Admin: 11/18/17 12:11 Dose: 81 mg Clopidogrel Bisulfate (Plavix) 75 mg PO DAILY [facility] Last Admin: 11/18/17 12:12 Dose: 75 mg Enoxaparin Sodium (Lovenox) 40 mg SC DAILY [facility] Last Admin: 11/18/17 12:12 Dose: 40 mg Famotidine (Pepcid) 20 mg PO DAILY [facility] Last Admin: 11/18/17 12:12 Dose: 20 mg Ferric Sodium Gluconate Complex (Ferrlecit) 125 mg IVPB DAILY [facility] Stop: 11/19/17 10:01 Last Admin: 11/18/17 12:12 Dose: 125 mg Ceftriaxone Sodium 1 gm/ (Sodium Chloride) 100 mls @ 100 mls/hr IVPB Q12H [facility] PRN Reason: Protocol Last Admin: 11/18/17 06:36 Dose: 100 mls/hr Methylprednisolone (Solu-Medrol) 40 mg IVP Q8H [facility] Last Admin: 11/18/17 12:13 Dose: 40 mg Rosuvastatin Calcium (Crestor) 2.5 mg PO HS [facility] Last Admin: 11/16/17 21:13 Dose: 2.5 mg - Labs Labs: 11/18/17 13:58 11/18/17 13:58 PT 13.1 SECONDS (9.7-12.2) H 11/16/17 00:43 INR 1.2 11/16/17 00:43 APTT 28 SECONDS (21-34) 11/16/17 00:43 - Head Exam Head Exam: ATRAUMATIC, NORMOCEPHALIC - Eye Exam Eye Exam: Normal appearance - ENT Exam ENT Exam: Mucous Membranes Moist - Neck Exam Neck Exam: Normal Inspection - Respiratory Exam Respiratory Exam: Clear to Ausculation Bilateral - Cardiovascular Exam Cardiovascular Exam: REGULAR RHYTHM - GI/Abdominal Exam GI & Abdominal Exam: Soft, Normal Bowel Sounds Assessment and Plan (1) COPD with acute exacerbation Assessment & Plan: Continue nebulizer treatment IV steroids short course BiPAP at night Endocrinology evaluation Ultrasound of thyroid gland Possible surgical consult Status: Acute (2) SKYLAR and COPD overlap syndrome Status: Acute (3) HIV (human immunodeficiency virus infection) Status: Acute (4) Deep venous thrombosis of lower extremity Status: Acute
--- NOTE | 2017-11-18 17:26 | CT ---
Date of service: 11/18/2017 PROCEDURE: CT Chest with contrast HISTORY: THYROID MASS, LYMPHADENOPATHY COMPARISON: CT angiography of the pulmonary arteries performed 05/13/2017. TECHNIQUE: Contiguous axial images were obtained through the chest with intravenous contrast enhancement. Sagittal and coronal reconstructions were performed. IV contrast: 100 mL Visipaque 320 Radiation dose (DLP): 865.2 mGy-cm. This CT exam was performed using one or more of the following dose reduction techniques: Automated exposure control, adjustment of the mA and/or kV according to patient size, and/or use of iterative reconstruction technique. FINDINGS: LUNGS: Clear lungs. Visualized airway clear. MEDIASTINUM: Unremarkable thoracic aorta. No aneurysm or dissection. Normal sized heart. Main pulmonary artery unremarkable. No vascular congestion. Prominent soft tissue in the anterior mediastinum may represent residual thymic tissue versus lymphadenopathy. 1.8 x 1.4 cm lymph node between the brachiocephalic and left common carotid arteries 3.0 by 2.5 cm prevascular lymph node. Multiple small AP window lymph nodes. 2.8 x 1 point 7 cm precarinal lymph node. PLEURA: No pleural fluid. No pneumothorax. BONES: No fracture. No destructive lesion. UPPER ABDOMEN: Partially imaged inferior vena cava filter. Prior cholecystectomy. Left adrenal nodular thickening with 1.8 x 1.4 cm left adrenal indeterminate nodule. OTHER FINDINGS: Partially imaged thyroid mass with substernal extension measuring 5.2 x 4.4 cm displacing the trachea to the right. Prominent right axillary lymph node measuring 1.7 by 1.6 cm IMPRESSION: Partially imaged thyroid mass with substernal extension that displaces the trachea to the right without luminal narrowing. Mediastinal lymphadenopathy including 3.0 x 2.5 cm pre vascular lymph node and 2.8 x 1.7 cm precarinal lymph node. Additional smaller mediastinal lymph nodes as well as nodular soft tissue in the anterior mediastinum. Rounded prominent right axillary lymph node measuring 1.7 cm.
--- NOTE | 2017-11-18 18:03 | CP.PCM.PN ---
Subjective - Date & Time of Evaluation Date of Evaluation: 11/18/17 Time of Evaluation: 07:00 - Subjective Subjective: denies fever less SOB NAD Objective - Vital Signs/Intake and Output Vital Signs (last 24 hours): Temp Pulse Resp BP Pulse Ox 97.2 F L 91 H 20 138/92 H 96 11/18/17 16:00 11/18/17 16:00 11/18/17 16:00 11/18/17 16:00 11/18/17 16:00 Intake and Output: 11/18/17 11/18/17 06:59 18:59 Intake Total 400 Balance 400 - Medications Medications: Current Medications Albuterol Sulfate (Albuterol 0.083% Inhal Araceli (2.5 Mg/3 Ml) Ud) 2.5 mg INH RQ4 [facility] Last Admin: 11/18/17 15:43 Dose: 2.5 mg Aspirin (Ecotrin) 81 mg PO DAILY [facility] Last Admin: 11/18/17 12:11 Dose: 81 mg Clopidogrel Bisulfate (Plavix) 75 mg PO DAILY [facility] Last Admin: 11/18/17 12:12 Dose: 75 mg Enoxaparin Sodium (Lovenox) 40 mg SC DAILY [facility] Last Admin: 11/18/17 12:12 Dose: 40 mg Famotidine (Pepcid) 20 mg PO DAILY [facility] Last Admin: 11/18/17 12:12 Dose: 20 mg Ferric Sodium Gluconate Complex (Ferrlecit) 125 mg IVPB DAILY [facility] Stop: 11/19/17 10:01 Last Admin: 11/18/17 12:12 Dose: 125 mg Ceftriaxone Sodium 1 gm/ (Sodium Chloride) 100 mls @ 100 mls/hr IVPB Q12H [facility] PRN Reason: Protocol Last Admin: 11/18/17 06:36 Dose: 100 mls/hr Methylprednisolone (Solu-Medrol) 40 mg IVP Q8H [facility] Last Admin: 11/18/17 12:13 Dose: 40 mg Rosuvastatin Calcium (Crestor) 2.5 mg PO HS [facility] Last Admin: 11/16/17 21:13 Dose: 2.5 mg - Labs Labs: 11/18/17 13:58 11/18/17 13:58 PT 13.1 SECONDS (9.7-12.2) H 11/16/17 00:43 INR 1.2 11/16/17 00:43 APTT 28 SECONDS (21-34) 11/16/17 00:43 - Constitutional Appears: Non-toxic, Chronically Ill - Head Exam Head Exam: NORMOCEPHALIC - Eye Exam Eye Exam: PERRL - ENT Exam ENT Exam: Mucous Membranes Dry - Neck Exam Neck Exam: absent: Lymphadenopathy - Respiratory Exam Respiratory Exam: Decreased Breath Sounds - Cardiovascular Exam Cardiovascular Exam: REGULAR RHYTHM - GI/Abdominal Exam GI & Abdominal Exam: Distended - Rectal Exam Rectal Exam: Deferred - Exam Exam: NORMAL INSPECTION Assessment and Plan (1) COPD with acute exacerbation Status: Acute (2) Chest pain Status: Acute (3) Dyspnea Status: Acute (4) HIV (human immunodeficiency virus infection) Status: Acute - Assessment and Plan (Free Text) Assessment: 47 year old female with a history of HIV, COPD, HTN, depression, anxiety, bipolar disorder, arthritis, DVT (IVC filter placed June 2014), hyperthyroidism who presented to the ED For shortness of breath, cough, throat pain, difficulty swallowing, and swelling of legs. also complaining of nocturnal snorting and feel very tired and sleepy during the Daytime. Plan: Breathing much better Echocardiogram showed normal ejection fraction and no pulmonary hypertension CAT scan of the neck showed thyroid mass pushing the trachea iv rx in progress for UTI/ exac COPD await T cells will need surgical eval
[2017-11-18] MEDS: Rosuvastatin Calcium 2.5 mg Tab PO SCH (22:24)
[2017-11-19] MEDS: Albuterol 0.083% Inhal Sol (2.5 mg/3 mL) UD INH SCH ×5 (00:10→19:41)
[2017-11-19] MEDS: MethylPREDNISolone 40 mg Vial IVP SCH ×3 (02:34→17:53)
--- NOTE | 2017-11-19 10:08 | CP.PCM.PN ---
Subjective - Date & Time of Evaluation Date of Evaluation: 11/19/17 Time of Evaluation: 08:20 - Subjective Subjective: Patient seen and examined Lying comfortably in no acute distress Ultrasound of the neck done Difficulty swallowing Breathing better Is using BiPAP at night Afebrile CAT scan of the chest consistent with mediastinal lymphadenopathy and right axillary large lymph node Objective - Vital Signs/Intake and Output Vital Signs (last 24 hours): Temp Pulse Resp BP Pulse Ox 98.1 F 86 20 157/96 H 100 11/19/17 08:29 11/19/17 08:29 11/19/17 08:29 11/19/17 08:29 11/19/17 08:29 - Medications Medications: Current Medications Albuterol Sulfate (Albuterol 0.083% Inhal Araceli (2.5 Mg/3 Ml) Ud) 2.5 mg INH RQ4 [facility] Last Admin: 11/19/17 07:46 Dose: 2.5 mg Aspirin (Ecotrin) 81 mg PO DAILY [facility] Last Admin: 11/18/17 12:11 Dose: 81 mg Clopidogrel Bisulfate (Plavix) 75 mg PO DAILY [facility] Last Admin: 11/18/17 12:12 Dose: 75 mg Enoxaparin Sodium (Lovenox) 40 mg SC DAILY [facility] Last Admin: 11/18/17 12:12 Dose: 40 mg Famotidine (Pepcid) 20 mg PO DAILY [facility] Last Admin: 11/18/17 12:12 Dose: 20 mg Ceftriaxone Sodium 1 gm/ (Sodium Chloride) 100 mls @ 100 mls/hr IVPB Q12H [facility] PRN Reason: Protocol Last Admin: 11/19/17 06:06 Dose: 100 mls/hr Methylprednisolone (Solu-Medrol) 40 mg IVP Q8H [facility] Last Admin: 11/19/17 02:34 Dose: 40 mg Rosuvastatin Calcium (Crestor) 2.5 mg PO HS [facility] Last Admin: 11/18/17 22:24 Dose: 2.5 mg - Labs Labs: 11/18/17 13:58 11/18/17 13:58 PT 13.1 SECONDS (9.7-12.2) H 11/16/17 00:43 INR 1.2 11/16/17 00:43 APTT 28 SECONDS (21-34) 11/16/17 00:43 - Head Exam Head Exam: ATRAUMATIC, NORMOCEPHALIC - ENT Exam ENT Exam: Mucous Membranes Moist - Neck Exam Neck Exam: Normal Inspection - Respiratory Exam Respiratory Exam: Clear to Ausculation Bilateral - Cardiovascular Exam Cardiovascular Exam: REGULAR RHYTHM - GI/Abdominal Exam GI & Abdominal Exam: Soft Assessment and Plan (1) SKYLAR and COPD overlap syndrome Assessment & Plan: continue BiPAP at night Continue nebulizer treatment and steroids on CAT scan of neck thyroid mass pushing trachea followup ultrasound report Surgical evaluation and consider biopsy of right axillary lymph node sleep study as outpatient Status: Acute (2) COPD with acute exacerbation Status: Acute (3) HIV (human immunodeficiency virus infection) Status: Acute (4) Deep venous thrombosis of lower extremity Status: Acute
[2017-11-19] MEDS: Emtricitabine/rilpivirine/tenofovir 1 TAB PO SCH (10:33)
[2017-11-19] MEDS: Enoxaparin 40 mg Syringe SC SCH (10:33)
[2017-11-19] MEDS: Ferric Sodium Gluconat Complex 62.5 mg/5 ml Vial IVPB SCH (10:33)
--- NOTE | 2017-11-19 10:33 | US ---
Date of service: 11/18/2017 HISTORY: thyroid mass Reported right thyroidectomy in 2004 TECHNIQUE: Sonographic evaluation of the thyroid gland. COMPARISON: CT neck performed earlier the same day. FINDINGS: RIGHT LOBE: Prior right thyroidectomy. LEFT LOBE: Enlarged, measuring 4.1 x 6.4 x 9.6 cm. Heterogeneous echotexture. Nodules: Multiple nodules, the 3 largest include: Anterior upper pole cyst measuring 1.5 x 1.0 x 1.2 cm. Posterior midpole solid echogenic nodule measuring 3.4 x 2.7 x 4.2 cm. Mid/lower pole solid echogenic nodule measures 6.0 x 2.9 x 4.8 cm. ISTHMUS: Measures 0.2 cm. Normal echotexture and flow. Nodules: None OTHER FINDINGS: None . IMPRESSION: Prior right thyroidectomy. Enlarged, heterogeneous left thyroid with multiple large nodules, the largest of which is in the mid/lower pole and measures 6.0 cm.
--- NOTE | 2017-11-19 10:51 | VASCLAB ---
Date of service: 11/18/2017 PROCEDURE: Lower Extremity Venous Duplex Exam. HISTORY: edema PRIORS: None. TECHNIQUE: Bilateral common femoral, femoral, popliteal and posterior tibial, peroneal and great saphenous veins were evaluated. Flow was assessed with color Doppler, compressibility, assessment of phasic flow and augmentation response. Report prepared by REBECCA Urena, RVT FINDINGS: RIGHT: 1. Common Femoral Vein: 1.1. Compressibility - Fully compressible: Thrombus - None : Flow - Phasic: Augmentation -Normal: Reflux - None. 2. Femoral Vein: 2.1. Compressibility - Fully compressible: Thrombus - None : Flow - Phasic: Augmentation -Normal: Reflux - None. 3. Popliteal Vein: 3.1. Compressibility - Fully compressible: Thrombus - None : Flow - Phasic: Augmentation -Normal: Reflux - None. 4. Posterior Tibial Vein: 4.1. Compressibility - Partial: Thrombus - Chronic: Flow - Absent : Augmentation -None: Reflux - None. 5. Peroneal Vein: 5.1. Compressibility - Fully compressible: Thrombus - None: Flow - Phasic: Augmentation -Normal: Reflux - None. 6. Great Saphenous Vein: 6.1. Compressibility - Fully compressible: Thrombus - None: Flow - Phasic: Augmentation - Normal: Reflux - None. LEFT: 1. Common Femoral Vein: 1.1. Compressibility - Fully compressible: Thrombus - None: Flow - Phasic: Augmentation -Normal: Reflux - None. 2. Femoral Vein: 2.1. Compressibility - Fully compressible: Thrombus - None: Flow - Phasic: Augmentation -Normal: Reflux - None. 3. Popliteal Vein: 3.1. Compressibility - Partial: Thrombus - Chronic : Flow - Reduced : Augmentation -Reduced: Reflux - None. 4. Posterior Tibial Vein: 4.1. Compressibility - Fully compressible: Thrombus - None: Flow - Phasic: Augmentation -Normal: Reflux - None. 5. Peroneal Vein: 5.1. Compressibility - Fully compressible: Thrombus - None: Flow - Phasic: Augmentation -Normal: Reflux - None. 6. Great Saphenous Vein: 6.1. Compressibility - Fully compressible: Thrombus - None: Flow - Phasic: Augmentation - Normal: Reflux - None. OTHER FINDINGS: Right: Intima wall thickening noted in the right popliteal vein. Left: None significant. 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 Left: Chronic thrombosis of the left popliteal vein with mild reduction of the venous return. CARTER Lemus notified about the findings.
--- NOTE | 2017-11-19 10:52 | VASCLAB ---
Date of service: 11/18/2017 STUDY DESCRIPTION: HISTORY: PVD PRIORS: None. TECHNIQUE: Pulse volume recording waveforms and segmental pressures of bilateral lower extremities at multiple levels were obtained. Ankle Brachial Indices (ABIs) were calculated. Report prepared by REBECCA Urena, RVT RIGHT LOWER EXTREMITY: * Brachial artery: Pressure - 135 mmHg. * High thigh: Pressure - mmHg: Ratio - : PVR waveform - Pulsatile * Low thigh: Pressure - mmHg: Ratio - PVR waveform: Pulsatile * Calf: Pressure - mmHg: Ratio - PVR waveform: Pulsatile * Posterior tibial Artery: Pressure - 180 mmHg: Ratio - 1.33 PVR waveform: Pulsatile * Dorsalis pedis Artery: Pressure - 183 mmHg: Ratio - 1.36 PVR waveform: Pulsatile * Great toe: Pressure - 157 mmHg: Ratio - 1.16 PVR waveform: Pulsatile Ankle brachial index (LINDA): 1.36 LEFT LOWER EXTREMITY: * Brachial artery: Pressure - 123 mmHg. * High thigh: Pressure - mmHg: Ratio - : PVR waveform - Pulsatile * Low thigh: Pressure - mmHg: Ratio - PVR waveform: Pulsatile * Calf: Pressure - mmHg: Ratio - PVR waveform: Pulsatile * Posterior tibial Artery: Pressure - 166 mmHg: Ratio - 1.23 PVR waveform: Pulsatile * Dorsalis pedis Artery: Pressure - 164 mmHg: Ratio - 1.21 PVR waveform: Pulsatile * Great toe: Pressure - 170 mmHg: Ratio - 1.26 PVR waveform: Pulsatile Ankle brachial index (LINDA): 1.23 OTHER FINDINGS: Right: Left: IMPRESSION: Right: The ankle pressure index of the right lower extremity is non-diagnostic due to possible arterial wall calcifications. Left: There was no evidence of hemodynamically significant arterial insufficiency in the left lower extremity.
[2017-11-19 13:44] LABS: MCH 23.4 pg (27.0-33.0); MCV 79.6 fL (80.0-100.0)
--- NOTE | 2017-11-19 16:40 | CP.PCM.PN ---
Subjective - Date & Time of Evaluation Date of Evaluation: 11/19/17 Time of Evaluation: 08:00 - Subjective Subjective: iv rx in progress tolerating well less cough and less sob nad noted t cell pending Objective - Vital Signs/Intake and Output Vital Signs (last 24 hours): Temp Pulse Resp BP Pulse Ox 97.8 F 85 20 152/98 H 93 L 11/19/17 16:00 11/19/17 16:01 11/19/17 16:00 11/19/17 16:00 11/19/17 16:00 - Medications Medications: Current Medications Albuterol Sulfate (Albuterol 0.083% Inhal Araceli (2.5 Mg/3 Ml) Ud) 2.5 mg INH RQ4 [facility] Last Admin: 11/19/17 12:54 Dose: 2.5 mg Aspirin (Ecotrin) 81 mg PO DAILY [facility] Last Admin: 11/19/17 10:33 Dose: 81 mg Clopidogrel Bisulfate (Plavix) 75 mg PO DAILY [facility] Last Admin: 11/19/17 10:33 Dose: 75 mg Enoxaparin Sodium (Lovenox) 40 mg SC DAILY [facility] Last Admin: 11/19/17 10:33 Dose: 40 mg Famotidine (Pepcid) 20 mg PO DAILY [facility] Last Admin: 11/19/17 10:34 Dose: 20 mg Ceftriaxone Sodium 1 gm/ (Sodium Chloride) 100 mls @ 100 mls/hr IVPB Q12H [facility] PRN Reason: Protocol Last Admin: 11/19/17 06:06 Dose: 100 mls/hr Methimazole (Tapazole) 5 mg PO BID [facility] Methylprednisolone (Solu-Medrol) 40 mg IVP Q8H [facility] Last Admin: 11/19/17 11:22 Dose: 40 mg Rosuvastatin Calcium (Crestor) 2.5 mg PO HS [facility] Last Admin: 11/18/17 22:24 Dose: 2.5 mg - Labs Labs: 11/18/17 13:58 11/18/17 13:58 PT 13.1 SECONDS (9.7-12.2) H 11/16/17 00:43 INR 1.2 11/16/17 00:43 APTT 28 SECONDS (21-34) 11/16/17 00:43 - Constitutional Appears: Non-toxic, Chronically Ill - Head Exam Head Exam: NORMOCEPHALIC - Eye Exam Eye Exam: PERRL - ENT Exam ENT Exam: Mucous Membranes Dry - Neck Exam Neck Exam: absent: Lymphadenopathy - Respiratory Exam Respiratory Exam: Decreased Breath Sounds - Cardiovascular Exam Cardiovascular Exam: REGULAR RHYTHM - GI/Abdominal Exam GI & Abdominal Exam: Distended Assessment and Plan (1) COPD with acute exacerbation Status: Acute (2) Chest pain Status: Acute (3) Dyspnea Status: Acute (4) HIV (human immunodeficiency virus infection) Status: Acute - Assessment and Plan (Free Text) Assessment: cont iv rx pulm eval in progress may need surgical eval feels better with cpap but doesnt have one at home - dr leija to arrange
[2017-11-19] MEDS: methIMAzole 5 MG TAB PO SCH (17:53)
[2017-11-19 18:03] LABS: GRANULAR CAST 2 /lpf (0-1); SQUAMOUS EPITHIAL 1 /hpf (0-5); URINE BILIRUBIN NEGATIVE (NEGATIVE); URINE BLOOD NEGATIVE (NEGATIVE); URINE CLARITY Clear (Clear); URINE COLOR Amber (YELLOW); URINE GLUCOSE (UA) NORMAL (Normal); URINE HYALINE CAST 0-2 /lpf (0-2); URINE LEUKOCYTE ESTERASE NEG Leu/uL (Negative); URINE PROTEIN 1+ mg/dL (NEGATIVE)
--- NOTE | 2017-11-19 20:58 | CP.PCM.PN ---
Subjective - Date & Time of Evaluation Date of Evaluation: 11/19/17 Time of Evaluation: 20:57 - Subjective Subjective: Reviewed results of tests done. Despite pt's deviated trachea, pt denies shortness of breath. She has some discomfort but not enough to want surgery. Appreciate ID suggestion, but I think may be medically managed at this time. Pt had hx of hyperthyroidism in the past and is not in thyrotoxicosis. Will monitor. Objective - Vital Signs/Intake and Output Vital Signs (last 24 hours): Temp Pulse Resp BP Pulse Ox 97.8 F 85 20 152/98 H 93 L 11/19/17 16:00 11/19/17 16:01 11/19/17 16:00 11/19/17 16:00 11/19/17 16:00 - Medications Medications: Current Medications Albuterol Sulfate (Albuterol 0.083% Inhal Araceli (2.5 Mg/3 Ml) Ud) 2.5 mg INH RQ4 [facility] Last Admin: 11/19/17 19:41 Dose: 2.5 mg Aspirin (Ecotrin) 81 mg PO DAILY [facility] Last Admin: 11/19/17 10:33 Dose: 81 mg Clopidogrel Bisulfate (Plavix) 75 mg PO DAILY [facility] Last Admin: 11/19/17 10:33 Dose: 75 mg Enoxaparin Sodium (Lovenox) 40 mg SC DAILY [facility] Last Admin: 11/19/17 10:33 Dose: 40 mg Famotidine (Pepcid) 20 mg PO DAILY [facility] Last Admin: 11/19/17 10:34 Dose: 20 mg Ceftriaxone Sodium 1 gm/ (Sodium Chloride) 100 mls @ 100 mls/hr IVPB Q12H [facility] PRN Reason: Protocol Last Admin: 11/19/17 17:52 Dose: 100 mls/hr Methimazole (Tapazole) 5 mg PO BID [facility] Last Admin: 11/19/17 17:53 Dose: 5 mg Methylprednisolone (Solu-Medrol) 30 mg IVP Q12 [facility] Rosuvastatin Calcium (Crestor) 2.5 mg PO HS [facility] Last Admin: 11/18/17 22:24 Dose: 2.5 mg - Labs Labs: 11/18/17 13:58 11/18/17 13:58 PT 13.1 SECONDS (9.7-12.2) H 11/16/17 00:43 INR 1.2 11/16/17 00:43 APTT 28 SECONDS (21-34) 11/16/17 00:43 Assessment and Plan (1) COPD with acute exacerbation Status: Acute (2) Hypochromic microcytic anemia Status: Acute (3) HIV (human immunodeficiency virus infection) Status: Acute (4) Thyromegaly Status: Acute (5) Hilar adenopathy Status: Acute (6) Hypercoagulable state Status: Acute (7) Dyspnea Status: Acute
[2017-11-19] MEDS: Rosuvastatin Calcium 2.5 mg Tab PO SCH (21:53)
[2017-11-19] MEDS ORDERED: MethylPREDNISolone 40 mg Vial IVP SCH (22:00)
[2017-11-20] MEDS: Albuterol 0.083% Inhal Sol (2.5 mg/3 mL) UD INH SCH ×7 (00:47→23:49)
[2017-11-20 09:11] LABS: BLOOD UREA NITROGEN 18 mg/dL (7-17); CALCIUM 10.1 mg/dl (8.6-10.4); GFR AFRICAN-AMERICAN > 60; GFR NON-AFRICAN AMERICAN > 60
--- NOTE | 2017-11-20 09:31 | CP.PCM.PN ---
Subjective - Date & Time of Evaluation Date of Evaluation: 11/20/17 Time of Evaluation: 08:40 - Subjective Subjective: The patient seen and examined Breathing better Afebrile BiPAP as needed Ultrasound of thyroid consistent with 6 cm thyroid nodule with no tracheal narrowing Taper steroids Nebulizer treatment Objective - Vital Signs/Intake and Output Vital Signs (last 24 hours): Temp Pulse Resp BP Pulse Ox 97.8 F 72 20 144/89 100 11/20/17 07:00 11/20/17 08:01 11/20/17 07:00 11/20/17 07:00 11/20/17 07:00 - Medications Medications: Current Medications Albuterol Sulfate (Albuterol 0.083% Inhal Araceli (2.5 Mg/3 Ml) Ud) 2.5 mg INH RQ4 [facility] Last Admin: 11/20/17 04:00 Dose: Not Given Aspirin (Ecotrin) 81 mg PO DAILY [facility] Last Admin: 11/19/17 10:33 Dose: 81 mg Clopidogrel Bisulfate (Plavix) 75 mg PO DAILY [facility] Last Admin: 11/19/17 10:33 Dose: 75 mg Enoxaparin Sodium (Lovenox) 40 mg SC DAILY [facility] Last Admin: 11/19/17 10:33 Dose: 40 mg Famotidine (Pepcid) 20 mg PO DAILY [facility] Last Admin: 11/19/17 10:34 Dose: 20 mg Ceftriaxone Sodium 1 gm/ (Sodium Chloride) 100 mls @ 100 mls/hr IVPB Q12H [facility] PRN Reason: Protocol Last Admin: 11/20/17 06:25 Dose: 100 mls/hr Methimazole (Tapazole) 5 mg PO BID [facility] Last Admin: 11/19/17 17:53 Dose: 5 mg Methylprednisolone (Solu-Medrol) 30 mg IVP Q12 [facility] Last Admin: 11/19/17 21:20 Dose: Not Given Rosuvastatin Calcium (Crestor) 2.5 mg PO HS [facility] Last Admin: 11/19/17 21:53 Dose: 2.5 mg - Labs Labs: 11/18/17 13:58 11/20/17 08:41 PT 13.1 SECONDS (9.7-12.2) H 11/16/17 00:43 INR 1.2 11/16/17 00:43 APTT 28 SECONDS (21-34) 11/16/17 00:43 Assessment and Plan (1) COPD with acute exacerbation Status: Acute (2) SKYLAR and COPD overlap syndrome Status: Acute (3) HIV (human immunodeficiency virus infection) Status: Acute (4) Deep venous thrombosis of lower extremity Status: Acute
[2017-11-20] MEDS: Enoxaparin 40 mg Syringe SC SCH (09:40)
[2017-11-20] MEDS: MethylPREDNISolone 40 mg Vial IVP SCH ×2 (09:40→21:18)
[2017-11-20] MEDS: Emtricitabine/rilpivirine/tenofovir 1 TAB PO SCH (09:41)
[2017-11-20] MEDS: methIMAzole 5 MG TAB PO SCH ×2 (09:41→17:16)
[2017-11-20 10:01] LABS: % CD4 (T HELPER CELL) 19 Percent (30-61); % CD8 (SUPPRESSOR T CELL) 52 Percent (12-42); ABSOLUTE CD4 CELLS 132 Cells/mcL (490-1740); ABSOLUTE CD8 CELLS 356 Cells/mcL (180-1170); ABSOLUTE LYMPHOCYTES 690 Cells/mcL (850-3900); HELPER/SUPPRESSOR RATIO 0.37 Ratio (0.86-5.00)
--- NOTE | 2017-11-20 19:58 | CP.PCM.PN ---
Subjective - Date & Time of Evaluation Date of Evaluation: 11/20/17 Time of Evaluation: 15:30 - Subjective Subjective: Patient seen and evaluated C/O of difficulty speaking and voice change Physical examination - Constitutional Appears: Non-toxic, No Acute Distress - Head Exam Head Exam: ATRAUMATIC, NORMAL INSPECTION, NORMOCEPHALIC - Eye Exam Eye Exam: EOMI, Normal appearance - ENT Exam ENT Exam: Mucous Membranes Dry - Neck Exam Neck Exam: Thyromegaly - Respiratory Exam Respiratory Exam: Decreased Breath Sounds, Rhonchi - Cardiovascular Exam Cardiovascular Exam: REGULAR RHYTHM, RRR, +S1, +S2 - GI/Abdominal Exam GI & Abdominal Exam: Soft, Normal Bowel Sounds. absent: Tenderness - Extremities Exam Extremities Exam: Pedal Edema, Tenderness - Neurological Exam Neurological Exam: Alert, Awake, Oriented x3 - Psychiatric Exam Psychiatric exam: Normal Affect, Normal Mood - Skin Skin Exam: Intact, Normal Color, Warm Objective - Vital Signs/Intake and Output Vital Signs (last 24 hours): Temp Pulse Resp BP Pulse Ox 97.4 F L 82 18 143/97 H 96 11/20/17 15:00 11/20/17 18:00 11/20/17 15:00 11/20/17 15:00 11/20/17 15:00 - Medications Medications: Current Medications Albuterol Sulfate (Albuterol 0.083% Inhal Araceli (2.5 Mg/3 Ml) Ud) 2.5 mg INH RQ4 [facility] Last Admin: 11/20/17 16:29 Dose: 2.5 mg Aspirin (Ecotrin) 81 mg PO DAILY [facility] Last Admin: 11/20/17 09:40 Dose: 81 mg Clopidogrel Bisulfate (Plavix) 75 mg PO DAILY [facility] Last Admin: 11/20/17 09:40 Dose: 75 mg Enoxaparin Sodium (Lovenox) 40 mg SC DAILY [facility] Last Admin: 11/20/17 09:40 Dose: 40 mg Famotidine (Pepcid) 20 mg PO DAILY [facility] Last Admin: 11/20/17 09:40 Dose: 20 mg Methimazole (Tapazole) 5 mg PO BID [facility] Last Admin: 11/20/17 17:16 Dose: 5 mg Methylprednisolone (Solu-Medrol) 20 mg IVP Q12 [facility] Last Admin: 11/20/17 09:40 Dose: 20 mg Rosuvastatin Calcium (Crestor) 2.5 mg PO HS [facility] Last Admin: 11/19/17 21:53 Dose: 2.5 mg - Labs Labs: 11/18/17 13:58 11/20/17 08:41 PT 13.1 SECONDS (9.7-12.2) H 11/16/17 00:43 INR 1.2 11/16/17 00:43 APTT 28 SECONDS (21-34) 11/16/17 00:43 Assessment and Plan - Assessment and Plan (Free Text) Assessment: COPD exacerbation nebulizer treatments IV steroids CT chest and neck Dr. Roman consulted- as per Dr. Roman probably SKYLAR component Ceftriaxone 1 gm q12h Cardiomegaly seen on cxray ECHO (11/18/17): LVEF is normal. no regional wall motion abnormalities noted. left atrium is mildly dilated Prior cath: Normal coronaries and normal EF Hx DVTs with IVC filter LE doppler: Chronic DVTs bilaterally Plavix 75mg po daily Aspirin 81mg po daily Lovenox 40mg sc daily Thyroid Mass neck ct: enlarged multinodular left thyroid lobe resulting in mass effect on the oropharynx, hypopharynx and trache with displacement to the right without luminal narrowing. Enlarged multinodular left thyroid lobe also extends into the superior mediastinum. f/u Thyroid ultrasound HLD Crestor 2.5mg po HS HIV continue HAART therapy Dr. Schaefer consulted for medication therapy in patient Microcytic Anemia Ferrlecit 125mg ivpb daily continue to monitor sickle cell screen positive, f/u further hematologic studies to determine cause of hypercoagulability
[2017-11-20] MEDS: Rosuvastatin Calcium 2.5 mg Tab PO SCH (21:18)
[2017-11-21] MEDS: Albuterol 0.083% Inhal Sol (2.5 mg/3 mL) UD INH SCH ×4 (03:32→20:30)
[2017-11-21 04:14] LABS: CARDIOLIPIN AB (IGA) <11 APL (<=11); CARDIOLIPIN AB (IGG) <14 GPL (<=14)
[2017-11-21 05:03] LABS: B2 GLYCOPROTEIN I AB(IGA) <9 SAU (<=20); B2 GLYCOPROTEIN I AB(IGG) <9 SGU (<=20); B2 GLYCOPROTEIN I AB(IGM) <9 SMU (<=20)
[2017-11-21] MEDS: Enoxaparin 40 mg Syringe SC SCH (11:14)
[2017-11-21] MEDS: MethylPREDNISolone 40 mg Vial IVP SCH ×2 (11:15→21:30)
[2017-11-21] MEDS: methIMAzole 5 MG TAB PO SCH ×2 (11:15→17:16)
[2017-11-21] MEDS: Emtricitabine/rilpivirine/tenofovir 1 TAB PO SCH (11:17)
--- NOTE | 2017-11-21 14:23 | CP.PCM.PN ---
Subjective - Date & Time of Evaluation Date of Evaluation: 11/21/17 Time of Evaluation: 07:00 - Subjective Subjective: events noted iv rx in progress Objective - Vital Signs/Intake and Output Vital Signs (last 24 hours): Temp Pulse Resp BP Pulse Ox 97.8 F 60 18 137/82 99 11/21/17 07:00 11/21/17 07:00 11/21/17 07:00 11/21/17 07:00 11/21/17 07:00 - Medications Medications: Current Medications Aspirin (Ecotrin) 81 mg PO DAILY [facility] Last Admin: 11/21/17 11:14 Dose: 81 mg Clopidogrel Bisulfate (Plavix) 75 mg PO DAILY [facility] Last Admin: 11/21/17 11:15 Dose: 75 mg Enoxaparin Sodium (Lovenox) 40 mg SC DAILY [facility] Last Admin: 11/21/17 11:14 Dose: 40 mg Famotidine (Pepcid) 20 mg PO DAILY [facility] Last Admin: 11/21/17 11:15 Dose: 20 mg Methimazole (Tapazole) 5 mg PO BID [facility] Last Admin: 11/21/17 11:15 Dose: 5 mg Methylprednisolone (Solu-Medrol) 20 mg IVP Q12 [facility] Last Admin: 11/21/17 11:15 Dose: 20 mg Rosuvastatin Calcium (Crestor) 2.5 mg PO HS [facility] Last Admin: 11/20/17 21:18 Dose: 2.5 mg - Labs Labs: 11/18/17 13:58 11/20/17 08:41 PT 13.1 SECONDS (9.7-12.2) H 11/16/17 00:43 INR 1.2 11/16/17 00:43 APTT 28 SECONDS (21-34) 11/16/17 00:43 - Constitutional Appears: Non-toxic, Chronically Ill - Head Exam Head Exam: NORMOCEPHALIC - Eye Exam Eye Exam: PERRL - ENT Exam ENT Exam: Mucous Membranes Dry - Neck Exam Neck Exam: absent: Lymphadenopathy - Respiratory Exam Respiratory Exam: Decreased Breath Sounds - Cardiovascular Exam Cardiovascular Exam: REGULAR RHYTHM - GI/Abdominal Exam GI & Abdominal Exam: Distended - Rectal Exam Rectal Exam: Deferred Assessment and Plan (1) COPD with acute exacerbation Status: Acute (2) Chest pain Status: Acute (3) Dyspnea Status: Acute (4) HIV (human immunodeficiency virus infection) Status: Acute - Assessment and Plan (Free Text) Assessment: neck ct: enlarged multinodular left thyroid lobe resulting in mass effect on the oropharynx, hypopharynx and trache with displacement to the right without luminal narrowing. Enlarged multinodular left thyroid lobe also extends into the superior mediastinum. f/u Thyroid ultrasound ultrasound noted no tracheal narrowing IV rx renewed
--- NOTE | 2017-11-21 16:34 | CP.PCM.PN ---
Subjective - Date & Time of Evaluation Date of Evaluation: 11/21/17 Time of Evaluation: 16:45 - Subjective Subjective: Pt doing better pulmonary-capone, although pt's hematologic tests relative to her HIV are concerning. . Objective - Vital Signs/Intake and Output Vital Signs (last 24 hours): Temp Pulse Resp BP Pulse Ox 97.7 F 61 18 148/98 H 96 11/21/17 15:00 11/21/17 16:05 11/21/17 15:00 11/21/17 15:00 11/21/17 15:00 - Medications Medications: Current Medications Albuterol Sulfate (Albuterol 0.083% Inhal Araceli (2.5 Mg/3 Ml) Ud) 2.5 mg INH RQ4 [facility] Aspirin (Ecotrin) 81 mg PO DAILY [facility] Last Admin: 11/21/17 11:14 Dose: 81 mg Clopidogrel Bisulfate (Plavix) 75 mg PO DAILY [facility] Last Admin: 11/21/17 11:15 Dose: 75 mg Enoxaparin Sodium (Lovenox) 40 mg SC DAILY [facility] Last Admin: 11/21/17 11:14 Dose: 40 mg Famotidine (Pepcid) 20 mg PO DAILY [facility] Last Admin: 11/21/17 11:15 Dose: 20 mg Methimazole (Tapazole) 5 mg PO BID [facility] Last Admin: 11/21/17 11:15 Dose: 5 mg Methylprednisolone (Solu-Medrol) 20 mg IVP Q12 [facility] Last Admin: 11/21/17 11:15 Dose: 20 mg Rosuvastatin Calcium (Crestor) 2.5 mg PO HS [facility] Last Admin: 11/20/17 21:18 Dose: 2.5 mg - Labs Labs: 11/18/17 13:58 11/20/17 08:41 PT 13.1 SECONDS (9.7-12.2) H 11/16/17 00:43 INR 1.2 11/16/17 00:43 APTT 28 SECONDS (21-34) 11/16/17 00:43 Assessment and Plan (1) COPD with acute exacerbation Status: Acute (2) Hypochromic microcytic anemia Status: Acute (3) HIV (human immunodeficiency virus infection) Status: Acute (4) Thyromegaly Status: Acute (5) Hilar adenopathy Status: Acute (6) Hypercoagulable state Status: Acute (7) Dyspnea Status: Acute
[2017-11-21] MEDS: Rosuvastatin Calcium 2.5 mg Tab PO SCH (21:30)
--- NOTE | 2017-11-21 22:11 | CP.PCM.PN ---
Subjective - Date & Time of Evaluation Date of Evaluation: 11/21/17 Time of Evaluation: 17:15 - Subjective Subjective: No cardiac events noted No chest pain and dyspnea Objective - Vital Signs/Intake and Output Vital Signs (last 24 hours): Temp Pulse Resp BP Pulse Ox 97.7 F 61 18 148/98 H 96 11/21/17 15:00 11/21/17 20:31 11/21/17 15:00 11/21/17 15:00 11/21/17 15:00 - Medications Medications: Current Medications Albuterol Sulfate (Albuterol 0.083% Inhal Araceli (2.5 Mg/3 Ml) Ud) 2.5 mg INH RQ4 [facility] Last Admin: 11/21/17 20:30 Dose: 2.5 mg Aspirin (Ecotrin) 81 mg PO DAILY [facility] Last Admin: 11/21/17 11:14 Dose: 81 mg Clopidogrel Bisulfate (Plavix) 75 mg PO DAILY [facility] Last Admin: 11/21/17 11:15 Dose: 75 mg Enoxaparin Sodium (Lovenox) 40 mg SC DAILY [facility] Last Admin: 11/21/17 11:14 Dose: 40 mg Famotidine (Pepcid) 20 mg PO DAILY [facility] Last Admin: 11/21/17 11:15 Dose: 20 mg Methimazole (Tapazole) 5 mg PO BID [facility] Last Admin: 11/21/17 17:16 Dose: 5 mg Methylprednisolone (Solu-Medrol) 20 mg IVP Q12 [facility] Last Admin: 11/21/17 21:30 Dose: 20 mg Rosuvastatin Calcium (Crestor) 2.5 mg PO HS [facility] Last Admin: 11/21/17 21:30 Dose: 2.5 mg - Labs Labs: 11/18/17 13:58 11/20/17 08:41 PT 13.1 SECONDS (9.7-12.2) H 11/16/17 00:43 INR 1.2 11/16/17 00:43 APTT 28 SECONDS (21-34) 11/16/17 00:43
[2017-11-22] MEDS: Albuterol 0.083% Inhal Sol (2.5 mg/3 mL) UD INH SCH ×6 (00:09→23:55)
[2017-11-22 05:32] LABS: HEMOGLOBIN A 64.4 Percent (>96.0); HEMOGLOBIN A2 3.7 Percent (1.8-3.5); HEMOGLOBIN S 30.9 Percent (0.0-0.0)
[2017-11-22 07:38] LABS: BASO % 0.3 % (0.0-2.0); EOS % 0.2 % (0.0-4.0); HEMOGLOBIN 11.3 g/dL (11.0-16.0); LYMPH # 1.4 K/uL (1.0-4.3); LYMPH % 25.5 % (20.0-40.0); MEAN CELL VOLUME 75.9 fL (81.0-99.0); MEAN CORPUSCULAR HEMOGLOBIN 23.8 pg (27.0-31.0); MEAN CORPUSCULAR HGB CONC 31.4 g/dL (33.0-37.0); MEAN PLATELET VOLUME 9.1 fL (7.2-11.7); MONO # 0.5 K/uL (0.0-0.8); MONO % 8.9 % (0.0-10.0); NEUT # 3.5 K/uL (1.8-7.0); NEUT % 65.1 % (50.0-75.0); NRBC % 0.1 % (0.0-2.0); RBC 4.74 Mil/uL (3.80-5.20); RED CELL DISTRIBUTION WIDTH 24.3 % (11.5-14.5); WHITE BLOOD COUNT 5.4 K/uL (4.8-10.8)
[2017-11-22 08:09] LABS: FREE T4 1.07 ng/dL (0.78-2.19)
[2017-11-22] MEDS: methIMAzole 5 MG TAB PO SCH ×2 (10:16→17:58)
[2017-11-22] MEDS: MethylPREDNISolone 40 mg Vial IVP SCH (10:16)
[2017-11-22] MEDS: Emtricitabine/rilpivirine/tenofovir 1 TAB PO SCH (10:16)
[2017-11-22] MEDS: Enoxaparin 40 mg Syringe SC SCH (10:17)
--- NOTE | 2017-11-22 13:02 | CP.PCM.PN ---
Subjective - Date & Time of Evaluation Date of Evaluation: 11/22/17 Time of Evaluation: 10:00 - Subjective Subjective: CD4 down to 132 patient has been poorly compliant with folow up and adherence suspect resistance will order genotype consider eval for depression Bactrim prophylaxis for PCP Pulm eval Dr Roman Objective - Vital Signs/Intake and Output Vital Signs (last 24 hours): Temp Pulse Resp BP Pulse Ox 97.8 F 46 L 18 146/91 H 100 11/22/17 07:00 11/22/17 08:24 11/22/17 07:00 11/22/17 07:00 11/22/17 07:00 - Medications Medications: Current Medications Albuterol Sulfate (Albuterol 0.083% Inhal Araceli (2.5 Mg/3 Ml) Ud) 2.5 mg INH RQ4 [facility] Last Admin: 11/22/17 11:17 Dose: 2.5 mg Aspirin (Ecotrin) 81 mg PO DAILY [facility] Last Admin: 11/22/17 10:16 Dose: 81 mg Clopidogrel Bisulfate (Plavix) 75 mg PO DAILY [facility] Last Admin: 11/22/17 10:16 Dose: 75 mg Enoxaparin Sodium (Lovenox) 40 mg SC DAILY [facility] Last Admin: 11/22/17 10:17 Dose: 40 mg Famotidine (Pepcid) 20 mg PO DAILY [facility] Last Admin: 11/22/17 10:17 Dose: 20 mg Methimazole (Tapazole) 5 mg PO BID [facility] Last Admin: 11/22/17 10:16 Dose: 5 mg Methylprednisolone (Solu-Medrol) 20 mg IVP Q12 [facility] Last Admin: 11/22/17 10:16 Dose: 20 mg Rosuvastatin Calcium (Crestor) 2.5 mg PO HS [facility] Last Admin: 11/21/17 21:30 Dose: 2.5 mg - Labs Labs: 11/22/17 07:12 11/20/17 08:41 PT 13.1 SECONDS (9.7-12.2) H 11/16/17 00:43 INR 1.2 11/16/17 00:43 APTT 28 SECONDS (21-34) 11/16/17 00:43 Assessment and Plan (1) COPD with acute exacerbation Status: Acute (2) Chest pain Status: Acute (3) Dyspnea Status: Acute (4) HIV (human immunodeficiency virus infection) Status: Acute
--- NOTE | 2017-11-22 13:32 | CP.PCM.PN ---
Subjective - Date & Time of Evaluation Date of Evaluation: 11/22/17 Time of Evaluation: 09:20 - Subjective Subjective: patient seen and examined Using BiPAP at night Afebrile No chest pain On nebulizer treatment and antibiotics Objective - Vital Signs/Intake and Output Vital Signs (last 24 hours): Temp Pulse Resp BP Pulse Ox 97.8 F 46 L 18 146/91 H 100 11/22/17 07:00 11/22/17 08:24 11/22/17 07:00 11/22/17 07:00 11/22/17 07:00 - Medications Medications: Current Medications Albuterol Sulfate (Albuterol 0.083% Inhal Araceli (2.5 Mg/3 Ml) Ud) 2.5 mg INH RQ4 [facility] Last Admin: 11/22/17 11:17 Dose: 2.5 mg Aspirin (Ecotrin) 81 mg PO DAILY [facility] Last Admin: 11/22/17 10:16 Dose: 81 mg Clopidogrel Bisulfate (Plavix) 75 mg PO DAILY [facility] Last Admin: 11/22/17 10:16 Dose: 75 mg Enoxaparin Sodium (Lovenox) 40 mg SC DAILY [facility] [place] Last Admin: 11/22/17 10:17 Dose: 40 mg Famotidine (Pepcid) 20 mg PO DAILY [facility] [place] Last Admin: 11/22/17 10:17 Dose: 20 mg Methimazole (Tapazole) 5 mg PO BID [facility] [place] Last Admin: 11/22/17 10:16 Dose: 5 mg Methylprednisolone (Solu-Medrol) 20 mg IVP Q12 [facility] [place] Last Admin: 11/22/17 10:16 Dose: 20 mg Rosuvastatin Calcium (Crestor) 2.5 mg PO HS [facility] [place] Last Admin: 11/21/17 21:30 Dose: 2.5 mg Trimethoprim/Sulfamethoxazole (Bactrim Ds Tab) 1 tab PO Q12 [facility] PRN Reason: Protocol - Labs Labs: 11/22/17 07:12 11/20/17 08:41 PT 13.1 SECONDS (9.7-12.2) H 11/16/17 00:43 INR 1.2 11/16/17 00:43 APTT 28 SECONDS (21-34) 11/16/17 00:43 - Head Exam Head Exam: ATRAUMATIC, NORMOCEPHALIC - ENT Exam ENT Exam: Mucous Membranes Moist - Neck Exam Neck Exam: Normal Inspection - Respiratory Exam Respiratory Exam: Clear to Ausculation Bilateral - Cardiovascular Exam Cardiovascular Exam: REGULAR RHYTHM - GI/Abdominal Exam GI & Abdominal Exam: Soft, Normal Bowel Sounds Assessment and Plan (1) SKYLAR and COPD overlap syndrome Assessment & Plan: BiPAP at night Switch to prednisone Sleep study as outpatient Continue nebulizer treatment Status: Acute (2) COPD with acute exacerbation Status: Acute (3) HIV (human immunodeficiency virus infection) Status: Acute (4) Deep venous thrombosis of lower extremity Status: Acute
[2017-11-22] MEDS: Tmp-Smz 800 mg-160 mg DS Tab PO SCH ×2 (13:50→21:49)
[2017-11-22 14:16] LABS: CARDIOLIPIN AB (IGM) <12 MPL (<=12); PHOSPHATIDYLSERINE AB IGA <20 U/mL (<20); PHOSPHATIDYLSERINE AB IGG <10 U/mL (<10); PHOSPHATIDYLSERINE AB IGM <25 U/mL (<25)
--- NOTE | 2017-11-22 20:44 | CP.PCM.PN ---
Subjective - Date & Time of Evaluation Date of Evaluation: 11/22/17 Time of Evaluation: 19:42 - Subjective Subjective: Pt seen and evaluated at bedside. Feeling much better, although the new finds in her chest elicits an uncomfortable sensation in patient. Will have pt be seen by Psychiatry and suggest tx. Discussed various scenarios in which pt's discharge may proceed: KURTIS, ORA. Otherwise no complaints. > Had ordered O2sat readings 2 days ago to be done pre- ambulation. Objective - Vital Signs/Intake and Output Vital Signs (last 24 hours): Temp Pulse Resp BP Pulse Ox 98 F 103 H 20 124/85 95 11/22/17 16:02 11/22/17 16:25 11/22/17 16:02 11/22/17 16:02 11/22/17 16:02 Intake and Output: 11/22/17 11/23/17 18:59 06:59 Intake Total 400 Balance 400 - Medications Medications: Current Medications Albuterol Sulfate (Albuterol 0.083% Inhal Araceli (2.5 Mg/3 Ml) Ud) 2.5 mg INH RQ4 [facility] Last Admin: 11/22/17 19:38 Dose: 2.5 mg Aspirin (Ecotrin) 81 mg PO DAILY [facility] Last Admin: 11/22/17 10:16 Dose: 81 mg Clopidogrel Bisulfate (Plavix) 75 mg PO DAILY [facility] Last Admin: 11/22/17 10:16 Dose: 75 mg Enoxaparin Sodium (Lovenox) 40 mg SC DAILY [facility] Last Admin: 11/22/17 10:17 Dose: 40 mg Famotidine (Pepcid) 20 mg PO DAILY [facility] Last Admin: 11/22/17 10:17 Dose: 20 mg Ferric Sodium Gluconate Complex (Ferrlecit) 125 mg IVPB DAILY [facility] Stop: 12/01/17 10:01 Methimazole (Tapazole) 5 mg PO BID [facility] Last Admin: 11/22/17 17:58 Dose: 5 mg Prednisone (Prednisone Tab) 20 mg PO DAILY [facility] Last Admin: 11/22/17 13:50 Dose: 20 mg Rosuvastatin Calcium (Crestor) 2.5 mg PO HS [facility] Last Admin: 11/21/17 21:30 Dose: 2.5 mg Trimethoprim/Sulfamethoxazole (Bactrim Ds Tab) 1 tab PO Q12 [facility] PRN Reason: Protocol Last Admin: 11/22/17 13:50 Dose: 1 tab - Labs Labs: 11/22/17 07:12 11/20/17 08:41 PT 13.1 SECONDS (9.7-12.2) H 11/16/17 00:43 INR 1.2 11/16/17 00:43 APTT 28 SECONDS (21-34) 11/16/17 00:43 Assessment and Plan (1) COPD with acute exacerbation Status: Acute (2) Hypochromic microcytic anemia Status: Acute (3) HIV (human immunodeficiency virus infection) Status: Acute (4) Thyromegaly Status: Acute (5) Hilar adenopathy Status: Acute (6) Hypercoagulable state Status: Acute (7) Dyspnea Status: Acute
[2017-11-22] MEDS: Rosuvastatin Calcium 2.5 mg Tab PO SCH (21:49)
--- NOTE | 2017-11-22 23:11 | CP.PCM.PN ---
Subjective - Date & Time of Evaluation Date of Evaluation: 11/22/17 Time of Evaluation: 20:10 - Subjective Subjective: Patient seen and evaluated No cardiac events noted Denies chest pain and dyspnea Objective - Vital Signs/Intake and Output Vital Signs (last 24 hours): Temp Pulse Resp BP Pulse Ox 98 F 103 H 20 124/85 95 11/22/17 16:02 11/22/17 16:25 11/22/17 16:02 11/22/17 16:02 11/22/17 16:02 Intake and Output: 11/22/17 11/23/17 18:59 06:59 Intake Total 400 600 Balance 400 600 - Medications Medications: Current Medications Albuterol Sulfate (Albuterol 0.083% Inhal Araceli (2.5 Mg/3 Ml) Ud) 2.5 mg INH RQ4 [facility] Last Admin: 11/22/17 19:38 Dose: 2.5 mg Aspirin (Ecotrin) 81 mg PO DAILY [facility] Last Admin: 11/22/17 10:16 Dose: 81 mg Clopidogrel Bisulfate (Plavix) 75 mg PO DAILY [facility] Last Admin: 11/22/17 10:16 Dose: 75 mg Enoxaparin Sodium (Lovenox) 40 mg SC DAILY [facility] Last Admin: 11/22/17 10:17 Dose: 40 mg Famotidine (Pepcid) 20 mg PO DAILY [facility] Last Admin: 11/22/17 10:17 Dose: 20 mg Ferric Sodium Gluconate Complex (Ferrlecit) 125 mg IVPB DAILY [facility] Stop: 12/01/17 10:01 Methimazole (Tapazole) 5 mg PO BID [facility] Last Admin: 11/22/17 17:58 Dose: 5 mg Prednisone (Prednisone Tab) 20 mg PO DAILY [facility] Last Admin: 11/22/17 13:50 Dose: 20 mg Rosuvastatin Calcium (Crestor) 2.5 mg PO HS [facility] Last Admin: 11/22/17 21:49 Dose: 2.5 mg Trimethoprim/Sulfamethoxazole (Bactrim Ds Tab) 1 tab PO Q12 [facility] PRN Reason: Protocol Last Admin: 11/22/17 21:49 Dose: 1 tab - Labs Labs: 11/22/17 07:12 11/20/17 08:41 PT 13.1 SECONDS (9.7-12.2) H 11/16/17 00:43 INR 1.2 11/16/17 00:43 APTT 28 SECONDS (21-34) 11/16/17 00:43
[2017-11-23] MEDS: Albuterol 0.083% Inhal Sol (2.5 mg/3 mL) UD INH SCH ×5 (03:29→19:26)
[2017-11-23 06:22] LABS: BASO % 0.4 % (0.0-2.0); EOS % 0.6 % (0.0-4.0); HEMOGLOBIN 11.4 g/dL (11.0-16.0); LYMPH # 1.7 K/uL (1.0-4.3); LYMPH % 21.8 % (20.0-40.0); MEAN CELL VOLUME 76.1 fL (81.0-99.0); MEAN CORPUSCULAR HEMOGLOBIN 23.5 pg (27.0-31.0); MEAN CORPUSCULAR HGB CONC 30.8 g/dL (33.0-37.0); MEAN PLATELET VOLUME 8.4 fL (7.2-11.7); MONO # 0.7 K/uL (0.0-0.8); MONO % 8.5 % (0.0-10.0); NEUT # 5.4 K/uL (1.8-7.0); NEUT % 68.7 % (50.0-75.0); NRBC % 0.2 % (0.0-2.0); RBC 4.88 Mil/uL (3.80-5.20); RED CELL DISTRIBUTION WIDTH 25.2 % (11.5-14.5); WHITE BLOOD COUNT 7.8 K/uL (4.8-10.8)
[2017-11-23 07:04] LABS: ALB/GLOB RATIO 0.9 (1.0-2.1); ALBUMIN 3.4 g/dL (3.5-5.0); ALT/SGPT 35 U/L (9-52); AST/SGOT 33 U/L (14-36); BILIRUBIN,DIRECT 0.3 mg/dL (0.0-0.4); BLOOD UREA NITROGEN 19 mg/dL (7-17); CALCIUM 10.1 mg/dl (8.6-10.4); GFR AFRICAN-AMERICAN > 60; GFR NON-AFRICAN AMERICAN > 60
[2017-11-23] MEDS: Enoxaparin 40 mg Syringe SC SCH (09:54)
[2017-11-23] MEDS: methIMAzole 5 MG TAB PO SCH ×2 (09:55→18:06)
[2017-11-23] MEDS: Ferric Sodium Gluconat Complex 62.5 mg/5 ml Vial IVPB SCH (09:55)
[2017-11-23] MEDS: Emtricitabine/rilpivirine/tenofovir 1 TAB PO SCH (09:55)
[2017-11-23] MEDS: Tmp-Smz 800 mg-160 mg DS Tab PO SCH ×2 (09:55→21:56)
--- NOTE | 2017-11-23 15:07 | CP.PCM.PN ---
Subjective - Date & Time of Evaluation Date of Evaluation: 11/23/17 Time of Evaluation: 15:07 - Subjective Subjective: PATIENT SEEN AND EXAMINED AT THE BEDSIDE Objective - Vital Signs/Intake and Output Vital Signs (last 24 hours): Temp Pulse Resp BP Pulse Ox 98.0 F 70 20 128/85 97 11/23/17 07:00 11/23/17 12:09 11/23/17 07:00 11/23/17 07:00 11/23/17 07:00 Intake and Output: 11/23/17 11/23/17 06:59 18:59 Intake Total 900 Balance 900 - Medications Medications: Current Medications Albuterol Sulfate (Albuterol 0.083% Inhal Araceli (2.5 Mg/3 Ml) Ud) 2.5 mg INH RQ4 [facility] Last Admin: 11/23/17 13:52 Dose: 2.5 mg Alprazolam (Xanax) 0.5 mg PO TID PRN PRN Reason: Anxiety Aspirin (Ecotrin) 81 mg PO DAILY [facility] Last Admin: 11/23/17 09:55 Dose: 81 mg Clopidogrel Bisulfate (Plavix) 75 mg PO DAILY [facility] Last Admin: 11/23/17 09:55 Dose: 75 mg Enoxaparin Sodium (Lovenox) 40 mg SC DAILY [facility] Last Admin: 11/23/17 09:54 Dose: 40 mg Famotidine (Pepcid) 20 mg PO DAILY [facility] Last Admin: 11/23/17 09:55 Dose: 20 mg Ferric Sodium Gluconate Complex (Ferrlecit) 125 mg IVPB DAILY [facility] Stop: 12/01/17 10:01 Last Admin: 11/23/17 09:55 Dose: 125 mg Methimazole (Tapazole) 5 mg PO BID [facility] Last Admin: 11/23/17 09:55 Dose: 5 mg Prednisone (Prednisone Tab) 20 mg PO DAILY [facility] Last Admin: 11/23/17 09:55 Dose: 20 mg Rosuvastatin Calcium (Crestor) 2.5 mg PO HS [facility] Last Admin: 11/22/17 21:49 Dose: 2.5 mg Trimethoprim/Sulfamethoxazole (Bactrim Ds Tab) 1 tab PO Q12 [facility] PRN Reason: Protocol Last Admin: 11/23/17 09:55 Dose: 1 tab - Labs Labs: 11/23/17 06:13 11/23/17 06:13 PT 13.1 SECONDS (9.7-12.2) H 11/16/17 00:43 INR 1.2 11/16/17 00:43 APTT 28 SECONDS (21-34) 11/16/17 00:43 Assessment and Plan - Assessment and Plan (Free Text) Assessment: FOLLOW UP WITH DR JURADO THIS WEDNESDAY OUT PATIENT IN HIS OFFICE ---CALL FOR APPOINTMENT FOLLOw UP WITH DR DUNLAP IN HIS OFFICE NEXT WEEK ---CALL FOR APPOINTMENT ADDRESS YOUR ANTIBIOTICS AND BLOOD WORK RESULT IF RESISTANCE TO THE MEDICATION FOLLOW UP WITH DR ALTAMIRANO IN HIS OFFICE NEXT WEEK ---CALL FOR APPOINTMENT ADDRESS SLEEP STUDY AT YOUR VISIT FOLLOW UP WITH DR KNOX IN 1 WEEK HIS OFFICE ----CALL FOR APPOINTMENT REGARDING YOUR SINUS MIRTHA CONTINUE HOME MEDICATION NEW PRESCRIPTION GIVEN PREDNISONE 20 MG PO DAILY FOR 2 DAYS THEN 10 MG PO DAILY FOR 4 DAYS BACTRIM ONE TAB PO EVERY 12 H FOR 1 WEEK THEN ONE TAB PO DAILY FOR THE REMAINING TAPAZOLE ONE TAB PO BID ACTIVITY TOLERATED CALL DR JURADO OR GO TO THE EMERGENCY ROOM IF SYMPTOMS RETURN OR WORSENING DISCUSS WITH PATIENT WHO AGREE AND VERBALIZED UNDERSTANDING
--- NOTE | 2017-11-23 15:13 | CP.PCM.PN ---
Subjective - Date & Time of Evaluation Date of Evaluation: 11/23/17 Time of Evaluation: 11:45 - Subjective Subjective: patient seen and examined Denies cough Breathing much improved On BiPAP at night Okay to discharge home Sleep study as outpatient Prednisone in tapering dose Endocrine workup Objective - Vital Signs/Intake and Output Vital Signs (last 24 hours): Temp Pulse Resp BP Pulse Ox 98.0 F 70 20 128/85 97 11/23/17 07:00 11/23/17 12:09 11/23/17 07:00 11/23/17 07:00 11/23/17 07:00 Intake and Output: 11/23/17 11/23/17 06:59 18:59 Intake Total 900 Balance 900 - Medications Medications: Current Medications Albuterol Sulfate (Albuterol 0.083% Inhal Araceli (2.5 Mg/3 Ml) Ud) 2.5 mg INH RQ4 [facility] Last Admin: 11/23/17 13:52 Dose: 2.5 mg Alprazolam (Xanax) 0.5 mg PO TID PRN PRN Reason: Anxiety Aspirin (Ecotrin) 81 mg PO DAILY [facility] Last Admin: 11/23/17 09:55 Dose: 81 mg Clopidogrel Bisulfate (Plavix) 75 mg PO DAILY [facility] Last Admin: 11/23/17 09:55 Dose: 75 mg Enoxaparin Sodium (Lovenox) 40 mg SC DAILY [facility] Last Admin: 11/23/17 09:54 Dose: 40 mg Famotidine (Pepcid) 20 mg PO DAILY [facility] Last Admin: 11/23/17 09:55 Dose: 20 mg Ferric Sodium Gluconate Complex (Ferrlecit) 125 mg IVPB DAILY [facility] Stop: 12/01/17 10:01 Last Admin: 11/23/17 09:55 Dose: 125 mg Methimazole (Tapazole) 5 mg PO BID [facility] Last Admin: 11/23/17 09:55 Dose: 5 mg Prednisone (Prednisone Tab) 20 mg PO DAILY [facility] Last Admin: 11/23/17 09:55 Dose: 20 mg Rosuvastatin Calcium (Crestor) 2.5 mg PO HS [facility] Last Admin: 11/22/17 21:49 Dose: 2.5 mg Trimethoprim/Sulfamethoxazole (Bactrim Ds Tab) 1 tab PO Q12 [facility] PRN Reason: Protocol Last Admin: 11/23/17 09:55 Dose: 1 tab - Labs Labs: 11/23/17 06:13 11/23/17 06:13 PT 13.1 SECONDS (9.7-12.2) H 11/16/17 00:43 INR 1.2 11/16/17 00:43 APTT 28 SECONDS (21-34) 11/16/17 00:43 Assessment and Plan (1) COPD with acute exacerbation Status: Acute (2) SKYLAR and COPD overlap syndrome Status: Acute (3) HIV (human immunodeficiency virus infection) Status: Acute (4) Deep venous thrombosis of lower extremity Status: Acute
[2017-11-23] MEDS: Rosuvastatin Calcium 2.5 mg Tab PO SCH (21:56)
--- NOTE | 2017-11-23 22:45 | CON ---
Copied To: Misael Sandoval MD Attending MD: Misael Sandoval MD DATE: 11/23/2017 CHIEF COMPLAINT AND REASON FOR CONSULTATION: The patient referred by Dr. Emilio Barney for evaluation of depression and anxiety. HISTORY OF PRESENT ILLNESS: This is a 47-year-old female, who is the patient of Dr. Barney, admitted for shortness of breath. The patient has also associated dyspnea on exertion and paroxysmal nocturnal dyspnea. She has been a patient of Dr. Barney for many years. The patient is referred for evaluation as the patient is complaining of depression for many years as well as anxiety. The patient has been diagnosed of HIV positive since 2010 and has been taking her medication for HIV, but reports that she also has thyroid problems for several years. She claims that she has history of partial thyroidectomy in 2004. The patient states that she has history of hyperthyroidism. She also reports she lost her son and her grandmother that contributed to her depression. She claims she was seen by psychiatrist at the [facility] outpatient and was given Depakote as well as Celexa and Abilify. She says Celexa was the one that helped her with the depression. The patient was resumed on Celexa for depression. The patient also has history of DVT and has a All filter. 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 ALLERGIES: ALLERGIES TO SEA SALT. PSYCHOSOCIAL HISTORY: Denies any psychosocial history. The patient is currently unemployed. MEDICATIONS: List of medications includes albuterol, Bactrim, Crestor, Ecotrin, Ferrlecit, Lovenox, Tapazole, Plavix, and prednisone. REVIEW OF SYSTEMS: The patient is alert and oriented x 3, seen in her room. She is complaining of depression and anxiety related to her family losses as well as medical problems. She is worried about the thyroid problems. SKIN: No diaphoresis. HEENT: No headache or dizziness. NECK: No pain. RESPIRATORY: No dyspnea. CARDIOVASCULAR: No chest pain. GASTROINTESTINAL: Appetite is fair. EXTREMITIES: The patient is moving extremities. NEUROLOGIC: Alert and oriented x3. GENITOURINARY: No dysuria. PHYSICAL EXAMINATION: VITAL SIGNS: Include temperature 98, heart rate 78, blood pressure 128/85, respirations 20, and oxygen saturations 97%. MENTAL STATUS EXAMINATION: Obese female who is about 5 feet 7 inches, weight is 268 pounds, oriented x3. Mood is depressed, anxious, somatic. Affect is reactive. Speech is spontaneous. Thought process, coherent. Thought content, preoccupied by her medical problems such as thyroid. No psychosis. No suicidal or homicidal ideation. Attention and memory seem to be fair. Insight and judgment are fair. Impulse control is fair. LABORATORY DATA: Review of her labs, free T4 is 1.07 and TSH third generation is 1.40. IMPRESSION: Major depression, recurrent, as well as mood disorder secondary to medical problems. PLAN AND RECOMMENDATION: The patient was seen and meds reviewed. Continue present management as ordered. We will put her back on Celexa at 10 mg daily for depression. The patient has agreed to take Celexa, she has just tried up before. Follow up with for her HIV problem and also continue other medication as ordered. Misael Sandoval MD [facility]
--- NOTE | 2017-11-24 00:11 | CP.PCM.PN ---
Subjective - Date & Time of Evaluation Date of Evaluation: 11/23/17 Time of Evaluation: 17:20 - Subjective Subjective: Patient seen and evaluated Denies chest pain and dyspnea Objective - Vital Signs/Intake and Output Vital Signs (last 24 hours): Temp Pulse Resp BP Pulse Ox 98.1 F 74 20 120/70 97 11/23/17 15:50 11/23/17 16:16 11/23/17 15:50 11/23/17 15:50 11/23/17 15:50 - Medications Medications: Current Medications Albuterol Sulfate (Albuterol 0.083% Inhal Araceli (2.5 Mg/3 Ml) Ud) 2.5 mg INH RQ4 [facility] Last Admin: 11/23/17 19:26 Dose: 2.5 mg Alprazolam (Xanax) 0.5 mg PO TID PRN PRN Reason: Anxiety Aspirin (Ecotrin) 81 mg PO DAILY [facility] Last Admin: 11/23/17 09:55 Dose: 81 mg Clopidogrel Bisulfate (Plavix) 75 mg PO DAILY [facility] Last Admin: 11/23/17 09:55 Dose: 75 mg Enoxaparin Sodium (Lovenox) 40 mg SC DAILY [facility] Last Admin: 11/23/17 09:54 Dose: 40 mg Famotidine (Pepcid) 20 mg PO DAILY [facility] Last Admin: 11/23/17 09:55 Dose: 20 mg Ferric Sodium Gluconate Complex (Ferrlecit) 125 mg IVPB DAILY [facility] Stop: 12/01/17 10:01 Last Admin: 11/23/17 09:55 Dose: 125 mg Methimazole (Tapazole) 5 mg PO BID [facility] Last Admin: 11/23/17 18:06 Dose: 5 mg Prednisone (Prednisone Tab) 20 mg PO DAILY [facility] Last Admin: 11/23/17 09:55 Dose: 20 mg Rosuvastatin Calcium (Crestor) 2.5 mg PO HS [facility] Last Admin: 11/23/17 21:56 Dose: 2.5 mg Trimethoprim/Sulfamethoxazole (Bactrim Ds Tab) 1 tab PO Q12 [facility] PRN Reason: Protocol Last Admin: 11/23/17 21:56 Dose: 1 tab - Labs Labs: 11/23/17 06:13 11/23/17 06:13 PT 13.1 SECONDS (9.7-12.2) H 11/16/17 00:43 INR 1.2 11/16/17 00:43 APTT 28 SECONDS (21-34) 11/16/17 00:43
[2017-11-24] MEDS: Albuterol 0.083% Inhal Sol (2.5 mg/3 mL) UD INH SCH ×5 (00:33→15:51)
[2017-11-24] MEDS: Ferric Sodium Gluconat Complex 62.5 mg/5 ml Vial IVPB SCH (10:04)
[2017-11-24] MEDS: methIMAzole 5 MG TAB PO SCH (10:05)
[2017-11-24] MEDS: Emtricitabine/rilpivirine/tenofovir 1 TAB PO SCH (10:05)
[2017-11-24] MEDS: Tmp-Smz 800 mg-160 mg DS Tab PO SCH (10:05)
[2017-11-24] MEDS: Enoxaparin 40 mg Syringe SC SCH (10:05)
--- NOTE | 2017-11-24 15:28 | CP.PCM.PN ---
Subjective - Date & Time of Evaluation Date of Evaluation: 11/24/17 Time of Evaluation: 08:00 - Subjective Subjective: DISCUSSES ON ROUNDS LUNGS CLEAR AFEB TO FOLLOW OUT PT ENCOURAGED TO MAKE APPTMT Objective - Vital Signs/Intake and Output Vital Signs (last 24 hours): Temp Pulse Resp BP Pulse Ox 97.8 F 75 18 126/81 98 11/24/17 07:00 11/24/17 12:00 11/24/17 07:00 11/24/17 07:00 11/24/17 07:00 Intake and Output: 11/24/17 11/24/17 06:59 18:59 Intake Total 500 Balance 500 - Medications Medications: Current Medications Albuterol Sulfate (Albuterol 0.083% Inhal Araceli (2.5 Mg/3 Ml) Ud) 2.5 mg INH RQ4 [facility] Last Admin: 11/24/17 11:47 Dose: 2.5 mg Alprazolam (Xanax) 0.5 mg PO TID PRN PRN Reason: Anxiety Aspirin (Ecotrin) 81 mg PO DAILY [facility] Last Admin: 11/24/17 10:05 Dose: 81 mg Clopidogrel Bisulfate (Plavix) 75 mg PO DAILY [facility] Last Admin: 11/24/17 10:05 Dose: 75 mg Enoxaparin Sodium (Lovenox) 40 mg SC DAILY [facility] Last Admin: 11/24/17 10:05 Dose: 40 mg Famotidine (Pepcid) 20 mg PO DAILY [facility] Last Admin: 11/24/17 10:05 Dose: 20 mg Ferric Sodium Gluconate Complex (Ferrlecit) 125 mg IVPB DAILY [facility] Stop: 12/01/17 10:01 Last Admin: 11/24/17 10:04 Dose: 125 mg Methimazole (Tapazole) 5 mg PO BID [facility] Last Admin: 11/24/17 10:05 Dose: 5 mg Prednisone (Prednisone Tab) 20 mg PO DAILY [facility] Last Admin: 11/24/17 10:05 Dose: 20 mg Rosuvastatin Calcium (Crestor) 2.5 mg PO HS [facility] Last Admin: 11/23/17 21:56 Dose: 2.5 mg - Labs Labs: 11/23/17 06:13 11/23/17 06:13 PT 13.1 SECONDS (9.7-12.2) H 11/16/17 00:43 INR 1.2 11/16/17 00:43 APTT 28 SECONDS (21-34) 11/16/17 00:43 Assessment and Plan (1) COPD with acute exacerbation Status: Acute (2) Chest pain Status: Acute (3) Dyspnea Status: Acute (4) HIV (human immunodeficiency virus infection) Status: Acute
[2017-11-24 15:50] VITALS: BP 123/83; PULSE 84; RESP 20; TEMP 98.1; O2SAT 95
--- NOTE | 2017-11-24 17:45 | PN ---
Copied To: Misael Sandoval MD Attending MD: Misael Sandoval MD DATE: 11/24/2017 SUBJECTIVE: The patient was seen. The patient feels a little better, less anxious. The patient was supposed to start with Celexa, but that actually cannot be given as it will cross react with her HIV meds, which can cause prolongation of QTc interval. The patient made aware that to hold off any antidepressant for now until her medical problems will resolve. She is due for discharge today, to follow up with Dr. Barney. The patient is feeling a little better, but may benefit from some counseling due to her losses in the family. PHYSICAL EXAMINATION: VITAL SIGNS: Temperature is 97.8, 73, 126/81, respirations 18, oxygen saturations 98%. GENERAL: The patient is alert and oriented x3. She is seen in her room, less anxious, cooperative. The patient is aware she will be going home today, to follow up with Dr. Barney. SKIN: No diaphoresis. HEENT: No headache. No dizziness. NECK: Supple. RESPIRATORY: No dyspnea. CARDIOVASCULAR: No chest pain. GASTROINTESTINAL: She is eating fairly well. EXTREMITIES: The patient is ambulatory. MUSCULOSKELETAL: Weight is improving. NEURO: Alert and oriented x3. LABORATORY DATA: On review of her lab, her hemoglobin A1c is 6.1 and her free T4 is 1.07 and TSH is 1.40. MENTAL STATUS EXAMINATION: This female looks stated age. Oriented x3. Mood is less anxious, somatic, less depressed. Affect is reactive. Speech spontaneous. Thought process coherent. Thought content, no overt psychosis. No suicidal or homicidal ideation. Attention and memory seems to be fair. Insight and judgment fair. Impulse control is fair. IMPRESSION: Depressive disorder, not otherwise specified. Mood disorder secondary to medical problems. PLAN AND RECOMMENDATION: The patient is seen and meds reviewed. Continue present management. We will hold off her psychiatric meds for now. Psych [place], the patient is stable to be discharged home to follow up with Dr. Barney, her medical attending as well as with Dr. Schaefer for her HIV problem. Misael Sandoval MD
== END 2017-11-24 17:33 | disposition home or self-care (01) | DRG 88 ==
LOC: C.ER 00:15 → C.9E 05:08 → C.5S 07:27
PROVIDERS: ADMIT Family Medicine; ATTEND Family Medicine
PROC: 5A09557 Assistance with Respiratory Ventilation, Greater than 96 Consecutive Hours, Continuous Positive Airway Pressure (ICD-10-PCS; principal; 2017-11-17)
DX: J44.1 Chronic obstructive pulmonary disease with (acute) exacerbation (principal); D57.1 Sickle-cell disease without crisis; I82.532 Chronic embolism and thrombosis of left popliteal vein; M35.1 Other overlap syndromes; R09.02 Hypoxemia; D50.9 Iron deficiency anemia, unspecified; E04.1 Nontoxic single thyroid nodule; E66.9 Obesity, unspecified; Z21 Asymptomatic human immunodeficiency virus [HIV] infection status; Z68.41 Body mass index [BMI] 40.0-44.9, adult; F17.210 Nicotine dependence, cigarettes, uncomplicated; F33.9 Major depressive disorder, recurrent, unspecified; G47.33 Obstructive sleep apnea (adult) (pediatric); I11.9 Hypertensive heart disease without heart failure; J39.8 Other specified diseases of upper respiratory tract; I73.9 Peripheral vascular disease, unspecified; F41.9 Anxiety disorder, unspecified; Z91.19 Patient's noncompliance with other medical treatment and regimen; Z90.49 Acquired absence of other specified parts of digestive tract; E78.00 Pure hypercholesterolemia, unspecified

== ENCOUNTER 2018-08-22 13:58 | Inpatient (IN) | payer MEDICARE, MEDICAID ==
[2018-08-22 14:34] VITALS: BMI 27.8
[2018-08-22] MEDS ORDERED: Albuterol 0.083% Inhal Sol (2.5 mg/3 mL) UD IH STA (15:41)
[2018-08-22 16:20] LABS: BASO % 0.5 % (0.0-2.0); EOS % 0.5 % (0.0-4.0); LYMPH # 1.6 K/uL (1.0-4.3); LYMPH % 32.6 % (20.0-40.0); MEAN CORPUSCULAR HEMOGLOBIN 31.4 pg (27.0-31.0); MEAN CORPUSCULAR HGB CONC 32.3 g/dL (33.0-37.0); MEAN PLATELET VOLUME 8.6 fL (7.2-11.7); MONO # 0.3 K/uL (0.0-0.8); NEUT # 2.8 K/uL (1.8-7.0); NEUT % 59.4 % (50.0-75.0); RBC 5.08 Mil/uL (3.80-5.20); WHITE BLOOD COUNT 4.8 K/uL (4.8-10.8)
[2018-08-22 16:21] LABS: HEMOGLOBIN 15.9 g/dL (11.0-16.0)
[2018-08-22 16:28] LABS: PROTHROMBIN TIME 11.1 SECONDS (9.7-12.2)
[2018-08-22 16:30] LABS: ABG ALLEN TEST POS; ARTERIAL BLOOD GAS HCO3 29.1 mmol/L (21-28); ARTERIAL BLOOD GAS O2 SAT 96.9 % (95-98); ARTERIAL BLOOD GAS PCO2 56 mm/Hg (35-45); ARTERIAL BLOOD GAS PH 7.37 (7.35-7.45); ARTERIAL BLOOD GAS PO2 72 mm/Hg (80-100); ARTERIAL BLOOD GAS TCO2 34.1 mmol/L (22-28)
[2018-08-22 16:37] LABS: SQUAMOUS EPITHIAL 1 /hpf (0-5); URINE BILIRUBIN NEGATIVE (NEGATIVE); URINE BLOOD NEGATIVE (NEGATIVE); URINE CLARITY Clear (Clear); URINE COLOR Yellow (YELLOW); URINE GLUCOSE (UA) NORMAL (Normal); URINE LEUKOCYTE ESTERASE NEG Leu/uL (Negative); URINE PROTEIN 2+ mg/dL (NEGATIVE)
[2018-08-22 16:38] LABS: HCG,QUALITATIVE URINE NEGATIVE (NEGATIVE)
--- NOTE | 2018-08-22 16:39 | RAD ---
Date of service: 08/22/2018 HISTORY: Sepsis Patient COMPARISON: 11/17/2017. FINDINGS: LUNGS: The lungs are well inflated and clear. There is mild pulmonary venous congestion. PLEURA: No pleural effusions or pneumothorax. CARDIOVASCULAR: There is severe cardiomegaly. No aortic atherosclerotic calcifications present. OSSEOUS STRUCTURES: Within normal limits for the patient's age. VISUALIZED UPPER ABDOMEN: Normal. OTHER FINDINGS: None. IMPRESSION: No active pulmonary disease. Severe cardiomegaly.
[2018-08-22 16:43] LABS: ALB/GLOB RATIO 1.2 (1.0-2.1); ALBUMIN 4.4 g/dL (3.5-5.0); BLOOD UREA NITROGEN 11 mg/dL (7-17); CALCIUM 10.2 mg/dl (8.6-10.4); GFR NON-AFRICAN AMERICAN > 60
[2018-08-22 16:50] LABS: ALT/SGPT 9 U/L (9-52); AST/SGOT 34 U/L (14-36)
[2018-08-22 16:55] LABS: B-TYPE NATRIURETIC PEPTIDE 124 pg/mL (0-450)
[2018-08-22] MEDS ORDERED: Albuterol-Ipratrop 3 mg / 0.5 (3 ml) UD IH STA (17:45)
[2018-08-22] MEDS ORDERED: MethylPREDNISolone 40 mg Vial IVP STA (17:45)
--- NOTE | 2018-08-22 17:54 | C.PDOC ---
History Of Present Illness 48 y/o female with PMH of HIV, sickle cell, CHF, COPD, comes in for evaluation of exertional SOB and left-sided chest pain gradually developed over the last few weeks. She also complains of a thyroid/neck mass that is causing difficulty breathing and sleeping. Patient admits she is O2 dependent at home, which is now not enough for my breathing. Otherwise pt denies any recent illness, fever, wheezing, cough, abd. pain, N/V, or palpitations. Time Seen by Provider: 08/22/18 15:01 Chief Complaint (Nursing): Shortness Of Breath History Per: Patient History/Exam Limitations: no limitations Onset/Duration Of Symptoms: Gradual Current Symptoms Are (Timing): Still Present Exacerbating Factor(s): Exertion Past Medical History Reviewed: Historical Data, Nursing Documentation, Vital Signs Vital Signs: Last Vital Signs Temp 98.9 F 08/22/18 14:34 Pulse 80 08/22/18 14:34 Resp 19 08/22/18 14:35 BP 131/84 08/22/18 14:34 Pulse Ox 92 L 08/22/18 14:35 - Medical History PMH: Anemia, Anxiety, Arthritis, Bipolar Disorder (???), COPD, Depression, Deep Vein Thrombosis, Gastritis, HIV, HTN, Hyperthyroidism (partial thyroidectomy), Migraine Denies: Chronic Kidney Disease Surgical History: Cholecystectomy - [facility] Procedures ASSISTANCE WITH RESPIRATORY VENTILATION, >96 HRS, CPAP (11/16/17) FLUOROSCOPY OF LEFT HEART USING LOW OSMOLAR CONTRAST (05/12/17) FLUOROSCOPY OF MULT COR ART USING L OSM CONTRAST (05/12/17) MEASURE OF CARDIAC SAMPL & PRESSURE, L HEART, PERC APPROACH (05/12/17) PLICATION OF VENA CAVA (06/26/14) Family History: States: No Known Family Hx - Social History Hx Tobacco Use: Yes Hx Alcohol Use: Yes Hx Substance Use: No - Immunization History Hx Tetanus Toxoid Vaccination: No Hx Influenza Vaccination: Yes Hx Pneumococcal Vaccination: No Review Of Systems Constitutional: Negative for: Fever, Chills Eyes: Negative for: Vision Change Cardiovascular: Positive for: Chest Pain. Negative for: Palpitations Respiratory: Positive for: SOB with Excertion. Negative for: Cough, Wheezing Gastrointestinal: Negative for: Nausea, Vomiting, Abdominal Pain Musculoskeletal: Negative for: Back Pain Neurological: Negative for: Weakness, Numbness, Change in Speech, Headache, Dizziness Physical Exam - Physical Exam Appears: Non-toxic, No Acute Distress Skin: Normal Color, Warm, No Rash Head: Normacephalic Eye(s): bilateral: PERRL Nose: No Flaring Oral Mucosa: Moist Throat: Normal (Airway patent, uvula midline), No Erythema, No Drooling Neck: Other ((+) Thyromegaly, with palpable left > right thyroid mass. No skin changes) Chest: Symmetrical, No Deformity, No Tenderness Cardiovascular: Rhythm Regular, No Murmur, No JVD Respiratory: No Decreased Breath Sounds, No Accessory Muscle Use, No Rhonchi, Wheezing (Bibasilar expiratory wheezing) Gastrointestinal/Abdominal: Soft, No Tenderness, No Distention, No Guarding Back: No CVA Tenderness Extremity: Normal ROM (x4), No Calf Tenderness, Swelling (Non-pitting trace B/L ankle edema, left > right) Neurological/Psych: Oriented x3, Normal Speech ED Course And Treatment - Laboratory Results Result Diagrams: 08/22/18 16:20 08/22/18 16:23 Lab Results: Puncture Site Lra 08/22/18 16:27 pCO2 56 mm/Hg (35-45) H 08/22/18 16:27 pO2 72 mm/Hg (80-100) L 08/22/18 16:27 HCO3 29.1 mmol/L (21-28) H 08/22/18 16:27 ABG pH 7.37 (7.35-7.45) 08/22/18 16:27 ABG Total CO2 34.1 mmol/L (22-28) H 08/22/18 16:27 ABG O2 Saturation 96.9 % (95-98) 08/22/18 16:27 ABG Base Excess 5.5 mmol/L (-2.0-3.0) H 08/22/18 16:27 Adria Test Pos 08/22/18 16:27 ABG Potassium 4.1 mmol/L (3.6-5.2) 08/22/18 16:27 A-a O2 Difference 58.0 mm/Hg 08/22/18 16:27 Respiratory Index 0.8 08/22/18 16:27 Sodium 138.0 mmol/l (132-148) 08/22/18 16:27 Chloride 103.0 mmol/L (98-107) 08/22/18 16:27 Glucose 77 mg/dl (65-105) 08/22/18 16:27 Lactate 1.2 mmol/L (0.7-2.1) 08/22/18 16:27 Liter Flow 2.0 08/22/18 16:27 FiO2 28.0 % 08/22/18 16:27 PT 11.1 SECONDS (9.7-12.2) 08/22/18 16:23 INR 1.0 08/22/18 16:23 APTT 31.0 SECONDS (21-34) 08/22/18 16:23 Troponin I < 0.0120 ng/mL (0.00-0.120) 08/22/18 16:23 NT-Pro-B Natriuret Pep 124 pg/mL (0-450) 08/22/18 16:23 Total Bilirubin 0.5 mg/dL (0.2-1.3) 08/22/18 16:23 AST 34 U/L (14-36) 08/22/18 16:23 ALT 9 U/L (9-52) D 08/22/18 16:23 Alkaline Phosphatase 72 U/L (38-126) 08/22/18 16:23 Total Protein 8.2 g/dL (6.3-8.3) 08/22/18 16:23 Albumin 4.4 g/dL (3.5-5.0) 08/22/18 16:23 Globulin 3.8 gm/dL (2.2-3.9) 08/22/18 16:23 Albumin/Globulin Ratio 1.2 (1.0-2.1) 08/22/18 16:23 Urine Color Yellow (YELLOW) 08/22/18 16:21 Urine Clarity Clear (Clear) 08/22/18 16:21 Urine pH 5.0 (5.0-8.0) 08/22/18 16:21 Ur Specific Sumner 1.014 (1.003-1.030) 08/22/18 16:21 Urine Protein 2+ mg/dL (NEGATIVE) H 08/22/18 16:21 Urine Glucose (UA) Normal mg/dL (Normal) 08/22/18 16:21 Urine Ketones Negative mg/dL (NEGATIVE) 08/22/18 16:21 Urine Blood Negative (NEGATIVE) 08/22/18 16:21 Urine Nitrate Negative (NEGATIVE) 08/22/18 16:21 Urine Bilirubin Negative (NEGATIVE) 08/22/18 16:21 Urine Urobilinogen 4.0 mg/dL (0.2-1.0) H 08/22/18 16:21 Ur Leukocyte Esterase Neg Kesha/uL (Negative) 08/22/18 16:21 Urine WBC (Auto) 1 /hpf (0-5) 08/22/18 16:21 Urine RBC (Auto) 1 /hpf (0-3) 08/22/18 16:21 Ur Squamous Epith Cells 1 /hpf (0-5) 08/22/18 16:21 Urine HCG, Qual Negative (NEGATIVE) 08/22/18 16:21 Urine HCG, Qual Negative (NEGATIVE) 08/22/18 16:21 ECG: Interpreted By Me, Viewed By Me ECG Rhythm: Sinus Rhythm Interpretation Of ECG: SR@91/min, LAD, no acute T wave or ST-T changes O2 Sat by Pulse Oximetry: 92 (RA) Pulse Ox Interpretation: Abnormal - Radiology CXR: Interpreted by Me, Read By Radiologist CXR Interpretation: Yes: No Acute Disease - Other Rad CXR X-Ray: Read By Radiologist Interpretation: FINDINGS: LUNGS: The lungs are well inflated and clear. There is mild pulmonary venous congestion. PLEURA: No pleural effusions or pneumothorax. CARDIOVASCULAR: There is severe cardiomegaly. No aortic a therosclerotic calcifications present. OSSEOUS STRUCTURES: Within normal limits for the patient's age. VISUALIZED UPPER ABDOMEN: Normal. OTHER FINDINGS: None. IMPRESSION: No active pulmonary disease. Severe cardiomegaly. Progress Note: Labs ordered including thyroid panel. Blood and urine cultures sent. EKG, CXR, Thyroid US pending. Pt was OBS in ED for 2 hrs and remained unchanged, hypoxic. Case discussed with and admission arranged with Dx: Hypoxia, SOB, COPD exacerbation, thyroid mass Disposition Counseled Patient/Family Regarding: Diagnosis - Disposition Disposition: HOSPITALIZED Disposition Time: 17:46 Condition: STABLE - Clinical Impression Clinical Impression: Chronic congestive heart failure, COPD with acute exacerbation, Dyspnea, Hypoxia, Thyromegaly - PA / TRIMMER SAWYER / Resident Statement MD/DO has reviewed & agrees with the documentation as recorded. - Scribe Statement The provider has reviewed the documentation as recorded by the Maggie Mcelroy All medical record entries made by the Scribe were at my direction and personally dictated by me. I have reviewed the chart and agree that the record accurately reflects my personal performance of the history, physical exam, medical decision making, and the department course for this patient. I have also personally directed, reviewed, and agree with the discharge instructions and disposition.
[2018-08-22] MEDS ORDERED: Albuterol 0.083% Inhal Sol (2.5 mg/3 mL) UD ONE (18:37)
[2018-08-22] MEDS ORDERED: Albuterol-Ipratrop 3 mg / 0.5 (3 ml) UD ONE (18:37)
[2018-08-22] MEDS ORDERED: MethylPREDNISolone 40 mg Vial ONE (18:37)
--- NOTE | 2018-08-22 18:52 | US ---
Date of service: 08/22/2018 HISTORY: pain, swelling TECHNIQUE: Sonographic evaluation of the thyroid gland.. Relevant surgical history: 2005 right thyroid lobe resection. COMPARISON: 11/18/2017 FINDINGS: RIGHT LOBE: No residual thyroid tissue in the surgical bed. LEFT LOBE: Measures 4.4 x 5.9 x 9.8 cm. Enlarged heterogeneous left lobe. Normal vascularity. Nodules: 1. Cystic nodule upper pole 1.3 x 2 x 1.9 cm 2. Adjacent solid nodule upper pole 9 x 10 x 11 mm. 3. Solid nodule hyperechoic upper pole 1.7 x 2.0 x 2.1 cm. 4. Solid nodule hyperechoic with small cystic areas mid and lower pole region 3.7 x 6.4 cm. 5. Solid nodule lower pole 2.1 x 2.7 x 2.9 cm. ISTHMUS: Measures 2.8 mm. Normal echotexture and flow. Nodules: None OTHER FINDINGS: None . IMPRESSION: Status post right lobe resection. Unremarkable isthmus. 5 nodules in the left thyroid gland. The largest solid nodule in the lower pole is stable as are the remaining 4 solid and cystic nodules.
[2018-08-22] MEDS ORDERED: Iodixanol 320 MG/ML 100 ML BOTTLE IV ONE (20:43)
[2018-08-23] MEDS: Enoxaparin 40 mg Syringe SC SCH ×2 (10:20→21:17)
--- NOTE | 2018-08-23 11:09 | CT ---
Date of service: 08/22/2018 PROCEDURE: CT Angiography of the neck with contrast HISTORY: SOB, neck pain COMPARISON: Ultrasound from 08/22/2018 TECHNIQUE: Contiguous axial images of the neck were obtained from the level of the skull-base to the superior mediastinum in the arteriographic phase of enhancement. Coronal and sagittal reformats or also generated. IV contrast dose: 100 mL Visipaque 320 Radiation dose: Total exam DLP = 579.07 mGy-cm. This CT exam was performed using one or more of the following dose reduction techniques: Automated exposure control, adjustment of the mA and/or kV according to patient size, and/or use of iterative reconstruction technique. FINDINGS: RIGHT CAROTID ARTERIES: Common Carotid Artery: Normal. Carotid Bifurcation: Normal. Internal Carotid Artery:Normal. External Carotid Artery (proximal branches): Normal. LEFT CAROTID ARTERIES: Common Carotid Artery: Normal. Carotid Bifurcation: Normal. Internal Carotid Artery:Normal. External Carotid Artery (proximal branches): Normal. VERTEBRAL ARTERIES: Right Vertebral Artery: Normal. Hypoplastic, an anatomic variant. Left Vertebral Artery: Normal. OTHER FINDINGS: The right thyroid lobe is surgically absent. There is marked enlargement of a multinodular left thyroid lobe which measures 12.3 x 6.5 x 11.9 cm. There is retrosternal extension of the left thyroid lobe, mass effect and rightward displacement of the trachea and mild luminal narrowing. Solitary enlarged submental lymph node measures 1.1 cm in transverse diameter. There are minimal aortic atherosclerotic calcifications in the proximal internal carotid arteries. There is mild paraseptal emphysema in the lung apices and nonspecific ground-glass attenuation in the visualized lungs. IMPRESSION: 1. Minimal atherosclerotic plaques in the proximal internal carotid arteries without hemodynamically significant stenosis. Patent bilateral internal carotid arteries and vertebral arteries without evidence for dissection. The right vertebral artery is hypoplastic, an anatomic variant. 2. Markedly enlarged multinodular left thyroid gland with retrosternal extension, mass effect and rightward displacement of the trachea with mild luminal narrowing. A preliminary report was provided by [employer].
--- NOTE | 2018-08-23 12:40 | CARD ---
APPROVED REPORT Date of service: 08/22/2018 EKG Measurement Heart [id number] <Conclusion> Normal sinus rhythm Possible Left atrial enlargement Left axis deviation Abnormal ECG
--- NOTE | 2018-08-23 13:23 | CP.PCM.CON ---
History of Present Illness - History of Present Illness History of Present Illness: 48 yo AA female presented at the ED complaining of shortness of breath over the past week. Also complaining of dyspnea on exertion and paroxysmal nocturnal dyspnea. No palpitations or chest pain. denies fever chills claims to be compliant with HIV Meds ( infected heterosexually ) on HAART Rx but not compliant with follow up Pt also had ower extremity swelling, prob 2ndry to chronic DVT for which she had a [place] filter put in iin the remote past. Review of Systems - Review of Systems Systems not reviewed;Unavailable: Respiratory Distress (known COPD) - Constitutional Constitutional: absent: As Per HPI, Anorexia, Chills, Daytime Sleepiness, Excessive Sweating, Fatigue, Fever, Frequent Falls, Headache, Increased Appetite, Lethargy, Malaise, Night Sweats, Snoring, Sleep Apnea, Weight Gain, Weight Loss, Weakness, Other - EENT Eyes: absent: As Per HPI, Blind Spots, Blurred Vision, Change in Vision, Decreased Night Vision, Diplopia, Discharge, Dry Eye, Exophthalmos, Floaters, Irritation, Itchy Eyes, Loss of Peripheral Vision, Pain, Photophobia, Requires Corrective Lenses, Sees Flashes, Spots in Vision, Tunnel Vision, Other Visual Disturbances, Loss of Vision, Other - Breasts Breasts: absent: As Per HPI, Change in Shape, Mass, Pain, Nipple Discharge, Nipple Inversion, Skin Changes, Swelling, Other - Cardiovascular Cardiovascular: absent: As Per HPI, Acrocyanosis, Chest Pain, Chest Pain at Rest, Chest Pain with Activity, Claudication, Diaphoresis, Dyspnea, Dyspnea on Exertion, Edema, Irregular Heart Rhythm, Pain Radiating to Arm/Neck/Jaw, Leg Edema, Leg Ulcers, Lightheadedness, Orthopnea, Palpitations, Paroxysmal Nocturnal Dyspnea, Pedal Edema, Radiating Pain, Rapid Heart Rate, Slow Heart Rate, Syncope, Other - Respiratory Respiratory: Cough, Dyspnea on Exertion - Gastrointestinal Gastrointestinal: absent: As Per HPI, Abdominal Pain, Belching, Bloating, Change in Bowel Habits, Change in Stool Character, Coffee Ground Emesis, Constipation, Cramping, Diarrhea, Dyspepsia, Dysphagia, Early Satiety, Excessive Flatus, Fecal Incontinence, Heartburn, Hematemesis, Hematochezia, Loose Stools, Melena, Nausea, Odynophagia, Temesmus, Vomiting, Other - Genitourinary Genitourinary: absent: As Per HPI, Change in Urinary Stream, Difficulty Urinating, Dysuria, Flank Pain, Hematuria, Pyuria, Nocturia, Urinary Incontinence, Urinary Frequency, Urinary Hesitance, Urinary Urgency, Voiding Freq/Small Amts, Freq UTI, Hx Renal/Bladder Calculi, Hx /Renal Surgery, Bladde r Distension, Other - Reproductive: Female Reproductive:Female: absent: As Per HPI, Amenorrhea, Amenorrhea/ Control, Currently Menstual, Cycle <21 Days, Cycle >35 Days, Cycle Variable, Menses 1-7 Days, Menses >/= 8 Days, Menses Variable, Cycle > 4 Weeks Between, No Menses for 6 Months, Heavy Menses, Light Menses, Normal Menses, Spotting Between Cycles, S /P Hysterectomy, Menopausal, Post Menopausal, Premenarche, Abnormal Vaginal Bleeding, Dysmenorrhea, Dyspareunia, Genital Lesions, Genital Pruritis, Pelvic Pain, Prolapse Symptoms, Sexual Dysfunction, Vaginal Discharge, Vaginal Dryness, Vaginal Odor, Vaginal Pruritis, Other - Musculoskeletal Musculoskeletal: absent: As Per HPI, Abnormal Gait, Arthralgias, Atrophy, Back Pain, Deformity, Joint Swelling, Limited Range of Motion, Loss of Height, Muscle Cramps, Muscle Weakness, Myalgias, Neck Pain, Numbness, Radiating Pain into Limb, Stiffness, Tingling, Other - Integumentary Integumentary: absent: As Per HPI, Acne, Alopecia, Bleeding Lesions, Change in Hair, Change in Nails, Change in Pigmentation, Changing Lesions, Dry Skin, Erythema, Furuncle, Hirsutism, Lesions, New Lesions, Non-Healing Lesions, Photosensitivity, Pruritus, Rash, Skin Pain, Skin Ulcer, Sores, Striae, Swelling, Unusual Bruising, Wounds, Jaundice, Other - Neurological Neurological: absent: As Per HPI, Abnormal Gait, Abnormal Hearing, Abnormal Movements, Abnormal Speech, Behavioral Changes, Burning Sensations, Confusion, Convulsions, Disequilibrium, Dizziness, Numbness, Focal Weakness, Frequent Falls, Headaches, Lack of Coordination, Loss of Vision, Memory Loss, Paresthesias, Radicular Pain, Restless Legs, Sensory Deficit, Syncope, Tingling, Tremor, Vertigo, Weakness, Other Visual Disturbances, Other - Psychiatric Psychiatric: Depression - Endocrine Endocrine: absent: As Per HPI, Change in Body Appearance, Change in Libido, Cold Intolorance, Deepening of Voice, Excessive Sweating, Fatigue, Flushing, Heat Intolorance, Increase in Ring/Shoe/Hat Size, Palpitations, Polydipsia, Polyphagia, Polyuria, Other - Hematologic/Lymphatic Hematologic: absent: As Per HPI, Easy Bleeding, Easy Bruising, Lymphadenopathy, Other Past Patient History - Infectious Disease Hx of Infectious Diseases: None - Tetanus Immunizations Tetanus Immunization: Unknown - Past Medical History & Family History Past Medical History?: Yes - Past Social History Smoking Status: Light Smoker < 10 Cigarettes Daily - CARDIAC Hx Hypertension: Yes - PULMONARY Hx Chronic Obstructive Pulmonary Disease (COPD): Yes - NEUROLOGICAL Hx Migraine: Yes - HEENT Hx HEENT Problems: No - RENAL Hx Chronic Kidney Disease: No - ENDOCRINE/METABOLIC Hx Hyperthyroidism: Yes (partial thyroidectomy) - HEMATOLOGICAL/ONCOLOGICAL Hx Anemia: Yes Hx Human Immunodeficiency Virus (HIV): Yes - INTEGUMENTARY Hx Dermatological Problems: No - MUSCULOSKELETAL/RHEUMATOLOGICAL Hx Falls: No - GASTROINTESTINAL Hx Gastritis: Yes - GENITOURINARY/GYNECOLOGICAL Hx Genitourinary Disorders: No - PSYCHIATRIC Hx Substance Use: No - SURGICAL HISTORY Hx Cholecystectomy: Yes - ANESTHESIA Hx Anesthesia: Yes Hx Anesthesia Reactions: No Hx Malignant Hyperthermia: No Meds Allergies/Adverse Reactions: Allergies Allergy/AdvReac Type Severity Reaction Status Date / Time SEA SALT Allergy Intermediate RASH Uncoded 08/22/18 14:34 - Medications Medications: Current Medications Clopidogrel Bisulfate (Plavix) 75 mg PO DAILY [facility] Last Admin: 08/23/18 10:20 Dose: 75 mg Enoxaparin Sodium (Lovenox) 40 mg SC Q12 [facility] Last Admin: 08/23/18 10:20 Dose: 40 mg Famotidine (Pepcid) 20 mg PO DAILY [facility] Last Admin: 08/23/18 10:20 Dose: 20 mg Pneumococcal Polyvalent Vaccine (Pneumovax 23 Vaccine) 0.5 ml IM .ONCE ONE Stop: 08/24/18 10:01 Raltegravir (Isentress) 400 mg PO BID [facility]; Protocol Last Admin: 08/23/18 12:52 Dose: 400 mg Rosuvastatin Calcium (Crestor) 2.5 mg PO HS [facility] Physical Exam - Constitutional Appears: Non-toxic, Chronically Ill - Head Exam Head Exam: ATRAUMATIC, NORMAL INSPECTION, NORMOCEPHALIC - Eye Exam Eye Exam: EOMI, Normal appearance, PERRL Pupil Exam: NORMAL ACCOMODATION, PERRL - ENT Exam ENT Exam: Mucous Membranes Moist, Normal Exam - Neck Exam Neck exam: Positive for: Normal Inspection - Respiratory Exam Respiratory Exam: Decreased Breath Sounds, Prolonged Expiratory Phase, Rhonchi - Cardiovascular Exam Cardiovascular Exam: Tachycardia, REGULAR RHYTHM, +S1, +S2 - GI/Abdominal Exam GI & Abdominal Exam: Normal Bowel Sounds, Soft. absent: Tenderness - Rectal Exam Rectal Exam: Deferred - Exam Exam: NORMAL INSPECTION - Extremities Exam Extremities exam: Positive for: normal inspection - Back Exam Back exam: NORMAL INSPECTION - Neurological Exam Neurological exam: Alert, CN II-XII Intact, Normal Gait, Oriented x3, Reflexes Normal - Psychiatric Exam Psychiatric exam: Normal Affect, Normal Mood - Skin Skin Exam: Dry, Intact, Normal Color, Warm Results - Vital Signs Recent Vital Signs: Last Vital Signs Temp 97.9 F 08/23/18 07:22 Pulse 74 08/23/18 07:22 Resp 20 08/23/18 07:22 BP 123/86 08/23/18 07:22 Pulse Ox 97 08/23/18 07:22 - Labs Result Diagrams: 08/22/18 16:20 08/22/18 16:23 Labs: Laboratory Results - last 24 hr 08/22/18 08/22/18 08/22/18 16:20 16:21 16:21 WBC 4.8 RBC 5.08 Hgb 15.9 D Hct 49.3 H MCV 97.0 D MCH 31.4 H MCHC 32.3 L RDW 16.0 H Plt Count 122 L D MPV 8.6 Neut % (Auto) 59.4 Lymph % (Auto) 32.6 [place] % (Auto) 7.0 Eos % (Auto) 0.5 Baso % (Auto) 0.5 Neut # (Auto) 2.8 Lymph # (Auto) 1.6 [place] # (Auto) 0.3 Eos # (Auto) 0.0 Baso # (Auto) 0.0 Differential Comment PT INR APTT Puncture Site pCO2 pO2 HCO3 ABG pH ABG Total CO2 ABG O2 Saturation ABG Base Excess Adria Test ABG Potassium A-a O2 Difference Respiratory Index Glucose Lactate Liter Flow FiO2 Sodium Potassium Chloride Carbon Dioxide Anion Gap BUN Creatinine Est GFR ( Amer) Est GFR (Non-Af Amer) Random Glucose Calcium Phosphorus Magnesium Total Bilirubin AST ALT Alkaline Phosphatase Troponin I NT-Pro-B Natriuret Pep Total Protein Albumin Globulin Albumin/Globulin Ratio Free T4 0.90 TSH 3rd Generation Arterial Blood Potassium Urine Color Yellow Urine Clarity Clear Urine pH 5.0 Ur Specific [place] 1.014 Urine Protein 2+ H Urine Glucose (UA) Normal Urine Ketones Negative Urine Blood Negative Urine Nitrate Negative Urine Bilirubin Negative Urine Urobilinogen 4.0 H Ur Leukocyte Esterase Neg Urine WBC (Auto) 1 Urine RBC (Auto) 1 Ur Squamous Epith Cells 1 Urine HCG, Qual Negative 08/22/18 08/22/18 08/22/18 16:23 16:23 16:27 WBC RBC Hgb Hct MCV MCH MCHC RDW Plt Count MPV Neut % (Auto) Lymph % (Auto) [place] % (Auto) Eos % (Auto) Baso % (Auto) Neut # (Auto) Lymph # (Auto) [place] # (Auto) Eos # (Auto) Baso # (Auto) Differential Comment PT 11.1 INR 1.0 APTT 31.0 Puncture Site Lra pCO2 56 H pO2 72 L HCO3 29.1 H ABG pH 7.37 ABG Total CO2 34.1 H ABG O2 Saturation 96.9 ABG Base Excess 5.5 H Adria Test Pos ABG Potassium 4.1 A-a O2 Difference 58.0 Respiratory Index 0.8 Glucose 77 Lactate 1.2 Liter Flow 2.0 FiO2 28.0 Sodium 139 138.0 Potassium 5.1 Chloride 102 103.0 Carbon Dioxide 33 H Anion Gap 8 L BUN 11 Creatinine 0.4 L Est GFR ( Amer) > 60 Est GFR (Non-Af Amer) > 60 Random Glucose 110 H Calcium 10.2 Phosphorus 2.5 Magnesium 1.3 L Total Bilirubin 0.5 AST 34 ALT 9 D Alkaline Phosphatase 72 Troponin I < 0.0120 NT-Pro-B Natriuret Pep 124 Total Protein 8.2 Albumin 4.4 Globulin 3.8 Albumin/Globulin Ratio 1.2 Free T4 TSH 3rd Generation 4.16 Arterial Blood Potassium 4.1 Urine Color Urine Clarity Urine pH Ur Specific [place] Urine Protein Urine Glucose (UA) Urine Ketones Urine Blood Urine Nitrate Urine Bilirubin Urine Urobilinogen Ur Leukocyte Esterase Urine WBC (Auto) Urine RBC (Auto) Ur Squamous Epith Cells Urine HCG, Qual Assessment & Plan (1) Chronic congestive heart failure Status: Acute (2) Dyspnea Status: Acute (3) Hypoxia Status: Acute (4) Thyromegaly Status: Acute (5) COPD with acute exacerbation Status: Chronic (6) HIV (human immunodeficiency virus infection) Status: Acute - Assessment and Plan (Free Text) Assessment: cont current IV antibiotics, bronchodilators Bi PaP HAART rx check T cells smoking cessation poor prognosis non compliance
[2018-08-23] MEDS: Emtricitabine-Tenofovir 200 mg-300 mg Tab PO SCH (14:43)
[2018-08-23 16:32] LABS: ABG ALLEN TEST POS; ARTERIAL BLOOD GAS HCO3 30.3 mmol/L (21-28); ARTERIAL BLOOD GAS HEMOGLOBIN 14.3 g/dL (11.7-17.4); ARTERIAL BLOOD GAS O2 SAT 89.4 % (95-98); ARTERIAL BLOOD GAS PCO2 64 mm/Hg (35-45); ARTERIAL BLOOD GAS PH 7.35 (7.35-7.45); ARTERIAL BLOOD GAS PO2 50 mm/Hg (80-100); ARTERIAL BLOOD GAS TCO2 37.3 mmol/L (22-28)
[2018-08-23] MEDS: Budesonide 0.5 mg/2 ml Inhal Susp UD INH SCH (20:26)
[2018-08-23] MEDS: Albuterol 0.083% Inhal Sol (2.5 mg/3 mL) UD INH SCH ×2 (20:26→20:27)
[2018-08-23] MEDS: Rosuvastatin Calcium 2.5 mg Tab PO SCH (21:16)
[2018-08-23] MEDS: Tmp-Smz 800 mg-160 mg DS Tab PO SCH (21:17)
[2018-08-23] MEDS ORDERED: Rosuvastatin Calcium 2.5 mg Tab PO SCH (22:00)
[2018-08-23] MEDS ORDERED: Cefepime 1 GM in Sodium Chloride 0.9% 50 ML IVPB SCH (23:00)
[2018-08-23] MEDS: Cefepime 1 GM in Sodium Chloride 0.9% 100 ML IVPB SCH (23:51)
[2018-08-24] MEDS: Albuterol 0.083% Inhal Sol (2.5 mg/3 mL) UD INH SCH ×4 (01:31→20:21)
[2018-08-24 06:59] LABS: PROTHROMBIN TIME 10.4 SECONDS (9.7-12.2)
[2018-08-24] MEDS: Budesonide 0.5 mg/2 ml Inhal Susp UD INH SCH ×2 (08:23→20:21)
[2018-08-24] MEDS ORDERED: Pneumococcal 23-Valent Vaccine IM ONE (10:00)
[2018-08-24] MEDS: Enoxaparin 40 mg Syringe SC SCH ×2 (11:17→21:33)
[2018-08-24] MEDS: Tmp-Smz 800 mg-160 mg DS Tab PO SCH ×2 (11:17→21:34)
[2018-08-24] MEDS: Cefepime 1 GM in Sodium Chloride 0.9% 100 ML IVPB SCH ×2 (11:23→22:41)
[2018-08-24] MEDS: Emtricitabine-Tenofovir 200 mg-300 mg Tab PO SCH (13:55)
--- NOTE | 2018-08-24 18:06 | CP.PCM.PN ---
Subjective - Date & Time of Evaluation Date of Evaluation: 08/24/18 Time of Evaluation: 08:00 - Subjective Subjective: seen on rounds less cough less SOB ROS completed events noted labs and xrays reviewed- left thyroid nodule enlarged orders signed Objective - Vital Signs/Intake and Output Vital Signs (last 24 hours): Temp Pulse Resp BP Pulse Ox 98.2 F 70 20 119/84 95 08/24/18 16:00 08/24/18 16:00 08/24/18 16:00 08/24/18 16:00 08/24/18 16:00 Intake and Output: 08/24/18 08/24/18 06:59 18:59 Intake Total 350 790 Balance 350 790 - Medications Medications: Current Medications Albuterol Sulfate (Albuterol 0.083% Inhal Araceli (2.5 Mg/3 Ml) Ud) 2.5 mg INH RQ6 [facility] Stop: 08/28/18 08:01 Last Admin: 08/24/18 08:23 Dose: 2.5 mg Budesonide (Pulmicort Respules) 0.5 mg INH RQ12 [facility] Last Admin: 08/24/18 08:23 Dose: 0.5 mg Clopidogrel Bisulfate (Plavix) 75 mg PO DAILY [facility] Last Admin: 08/24/18 11:17 Dose: 75 mg Emtricitabine/Tenofovir (Truvada 200 Mg-300 Mg) 1 tab PO Q24H [facility]; Protocol Last Admin: 08/24/18 13:55 Dose: 1 tab Enoxaparin Sodium (Lovenox) 40 mg SC Q12 [facility] Last Admin: 08/24/18 11:17 Dose: 40 mg Famotidine (Pepcid) 20 mg PO DAILY [facility] Last Admin: 08/24/18 11:17 Dose: 20 mg Cefepime HCl 1 gm/ Sodium (Chloride) 100 mls @ 100 mls/hr IVPB Q12H [facility]; Protocol Last Admin: 08/24/18 11:23 Dose: 100 mls/hr Raltegravir (Isentress) 400 mg PO BID [facility]; Protocol Last Admin: 08/24/18 17:24 Dose: 400 mg Rosuvastatin Calcium (Crestor) 2.5 mg PO HS [facility] Last Admin: 08/23/18 21:16 Dose: 2.5 mg Trimethoprim/Sulfamethoxazole (Bactrim Ds Tab) 1 tab PO Q12 [facility]; Protocol Last Admin: 08/24/18 11:17 Dose: 1 tab - Labs Labs: 08/22/18 16:20 08/22/18 16:23 PT 10.4 SECONDS (9.7-12.2) 08/24/18 06:34 INR 1.0 08/24/18 06:34 APTT 28.0 SECONDS (21-34) 08/24/18 06:34 - Constitutional Appears: Non-toxic, No Acute Distress, Chronically Ill - Head Exam Head Exam: ATRAUMATIC, NORMAL INSPECTION, NORMOCEPHALIC - Eye Exam Eye Exam: EOMI, Normal appearance, PERRL Pupil Exam: NORMAL ACCOMODATION, PERRL - ENT Exam ENT Exam: Mucous Membranes Moist, Normal Exam - Neck Exam Neck Exam: Full ROM, Normal Inspection. absent: Lymphadenopathy - Respiratory Exam Respiratory Exam: Decreased Breath Sounds, Prolonged Expiratory Phase, Rhonchi - Cardiovascular Exam Cardiovascular Exam: REGULAR RHYTHM, +S1, +S2. absent: Murmur - GI/Abdominal Exam GI & Abdominal Exam: Soft, Normal Bowel Sounds. absent: Tenderness - Rectal Exam Rectal Exam: Deferred - Exam Exam: NORMAL INSPECTION - Extremities Exam Extremities Exam: Full ROM, Normal Capillary Refill, Normal Inspection. absent: Joint Swelling, Pedal Edema - Back Exam Back Exam: NORMAL INSPECTION - Neurological Exam Neurological Exam: Alert, Awake, CN II-XII Intact, Normal Gait, Oriented x3 - Psychiatric Exam Psychiatric exam: Normal Affect, Normal Mood - Skin Skin Exam: Dry, Erythema, Intact, Normal Color, Warm Assessment and Plan (1) Chronic congestive heart failure Status: Acute (2) Dyspnea Status: Acute (3) Hypoxia Status: Acute (4) Thyromegaly Status: Acute (5) COPD with acute exacerbation Status: Chronic (6) HIV (human immunodeficiency virus infection) Status: Acute - Assessment and Plan (Free Text) Assessment: severe copd with acute exac morbid obesity with hypoventilation syndrome may need CPAP thyroid enlargement normal TFT's HIV/AIDS non-compliant consider Pulm eval cont HAART rx check T cells
[2018-08-24] MEDS: Rosuvastatin Calcium 2.5 mg Tab PO SCH (21:34)
[2018-08-25] MEDS: Albuterol 0.083% Inhal Sol (2.5 mg/3 mL) UD INH SCH ×4 (01:37→19:40)
[2018-08-25] MEDS: Budesonide 0.5 mg/2 ml Inhal Susp UD INH SCH ×2 (08:20→19:40)
[2018-08-25] MEDS: Enoxaparin 40 mg Syringe SC SCH ×2 (09:21→21:53)
[2018-08-25] MEDS: Tmp-Smz 800 mg-160 mg DS Tab PO SCH ×2 (09:23→21:54)
[2018-08-25] MEDS: Cefepime 1 GM in Sodium Chloride 0.9% 100 ML IVPB SCH ×2 (10:45→22:43)
[2018-08-25] MEDS: Emtricitabine-Tenofovir 200 mg-300 mg Tab PO SCH (13:18)
--- NOTE | 2018-08-25 18:44 | CP.PCM.PN ---
Subjective - Date & Time of Evaluation Date of Evaluation: 08/25/18 Time of Evaluation: 07:00 - Subjective Subjective: seen on rounds ROS completed events noted labs and xrays reviewed orders signed Objective - Vital Signs/Intake and Output Vital Signs (last 24 hours): Temp Pulse Resp BP Pulse Ox 98.3 F 81 20 109/73 94 L 08/25/18 16:00 08/25/18 16:00 08/25/18 16:00 08/25/18 16:00 08/25/18 16:00 Intake and Output: 08/25/18 08/25/18 06:59 18:59 Intake Total 300 Balance 300 - Medications Medications: Current Medications Albuterol Sulfate (Albuterol 0.083% Inhal Araceli (2.5 Mg/3 Ml) Ud) 2.5 mg INH RQ6 [facility] Stop: 08/28/18 08:01 Last Admin: 08/25/18 13:50 Dose: 2.5 mg Budesonide (Pulmicort Respules) 0.5 mg INH RQ12 [facility] Last Admin: 08/25/18 08:20 Dose: 0.5 mg Clopidogrel Bisulfate (Plavix) 75 mg PO DAILY [facility] Last Admin: 08/25/18 09:23 Dose: 75 mg Emtricitabine/Tenofovir (Truvada 200 Mg-300 Mg) 1 tab PO Q24H [facility]; Protocol Last Admin: 08/25/18 13:18 Dose: 1 tab Enoxaparin Sodium (Lovenox) 40 mg SC Q12 [facility] Last Admin: 08/25/18 09:21 Dose: 40 mg Famotidine (Pepcid) 20 mg PO DAILY [facility] Last Admin: 08/25/18 09:23 Dose: 20 mg Cefepime HCl 1 gm/ Sodium (Chloride) 100 mls @ 100 mls/hr IVPB Q12H [facility]; Protocol Last Admin: 08/25/18 10:45 Dose: 100 mls/hr Raltegravir (Isentress) 400 mg PO BID [facility]; Protocol Last Admin: 08/25/18 17:15 Dose: 400 mg Rosuvastatin Calcium (Crestor) 2.5 mg PO HS [facility] Last Admin: 08/24/18 21:34 Dose: 2.5 mg Trimethoprim/Sulfamethoxazole (Bactrim Ds Tab) 1 tab PO Q12 [facility]; Protocol Last Admin: 08/25/18 09:23 Dose: 1 tab - Labs Labs: 08/22/18 16:20 08/22/18 16:23 PT 10.4 SECONDS (9.7-12.2) 08/24/18 06:34 INR 1.0 08/24/18 06:34 APTT 28.0 SECONDS (21-34) 08/24/18 06:34 - Constitutional Appears: Well - Head Exam Head Exam: ATRAUMATIC, NORMAL INSPECTION, NORMOCEPHALIC - Eye Exam Eye Exam: EOMI, Normal appearance, PERRL Pupil Exam: NORMAL ACCOMODATION, PERRL - ENT Exam ENT Exam: Mucous Membranes Moist, Normal Exam - Neck Exam Neck Exam: Full ROM, Normal Inspection. absent: Lymphadenopathy - Respiratory Exam Respiratory Exam: Clear to Ausculation Bilateral, NORMAL BREATHING PATTERN - Cardiovascular Exam Cardiovascular Exam: REGULAR RHYTHM, +S1, +S2. absent: Murmur - GI/Abdominal Exam GI & Abdominal Exam: Soft, Normal Bowel Sounds. absent: Tenderness - Rectal Exam Rectal Exam: Deferred - Extremities Exam Extremities Exam: Full ROM, Normal Capillary Refill, Normal Inspection. absent: Joint Swelling, Pedal Edema - Back Exam Back Exam: NORMAL INSPECTION - Neurological Exam Neurological Exam: Alert, Awake, CN II-XII Intact, Normal Gait, Oriented x3 - Psychiatric Exam Psychiatric exam: Normal Affect, Normal Mood - Skin Skin Exam: Dry, Intact, Normal Color, Warm Assessment and Plan (1) Chronic congestive heart failure Status: Acute (2) Dyspnea Status: Acute (3) Hypoxia Status: Acute (4) Thyromegaly Status: Acute (5) COPD with acute exacerbation Status: Chronic (6) HIV (human immunodeficiency virus infection) Status: Acute - Assessment and Plan (Free Text) Assessment: cont IV rx supportive care
[2018-08-25] MEDS: Rosuvastatin Calcium 2.5 mg Tab PO SCH (21:54)
--- NOTE | 2018-08-25 22:43 | CP.PCM.HP ---
History of Present Illness - History of Present Illness History of Present Illness: cc: shortness of breath HPI: Pt admitted last year and found to have severely decompensated respiratory status. After much discussion, pt was discharged home on home O2 concentrator which pt has been using religiously. In ~8 month period, pt followed up twice at the office. When her condition became difficult to handle at home, pt started scheduling appts but apparently had waited too long. Pt says that with very little exertion, she felt her heart was pounding and beating very fast. She could not wean herself from her O2 equipment at any time, and was dependent on it 16/11. The last few days prior to admission became especially difficult so she decided to call 911 and was brought in to the ER for evaluation which resulted in this admission. > At bedside, pt appeared to be breathing comfortably, though she was practically immobile and just sitting up in bed. Pt's sister was at bedside as I explained to pt necessity of regular follow ups. Pt claims that she did not have transportation which was denied by pt's Transformation Analyst at her insurance company, [employer]. Pt's CM said that the pt had been authorized to use a local transport company, [employer] (?). > I also asked her if she had been in contact with her insurance company for case management, and she said that somebody had been calling her home but that she didn't understand why. In her defense, I have always known pt to not have a very good memory, and this is consistent with her history. I have noted her trying to remember things, and she is able to give a few syllables of her medications, compared to when I started seeing her > 10 years ago when she had n o clue as to her medications, their purpose, and how to take them. Pt promised to get in touch with Case Management once she gets home. > For recording purposes: GIAN Pryor, RN, [place] Transformation Analyst, [facility] Monitoring Division Plans [address] [place] [id number] Present on Admission - Present on Admission Any Indicators Present on Admission: Yes History of DVT/PE: Yes History of Uncontrolled Diabetes: No Urinary Catheter: No Decubitus Ulcer Present: No History Surgical Site Infection Following: None Review of Systems - Review of Systems Systems not reviewed;Unavailable: Respiratory Distress - Constitutional Constitutional: Anorexia, Weight Loss - EENT Eyes: Blind Spots, Other (upper eyelids droopy/fat-containing as in someone who has lost a lot of weight and belly hangs over ones waist. ) Ears: Decreased Hearing, Abnormal Hearing Nose/Mouth/Throat: Other Additional comments: edentulous at various areas; dysphagia and feeling of airway compression. - Breasts Additional comments: deferred - Cardiovascular Cardiovascular: Rapid Heart Rate - Respiratory Respiratory: Dyspnea on Exertion Additional comments: decreased breath sounds - Gastrointestinal Gastrointestinal: Abdominal Pain - Genitourinary Genitourinary: Urinary Incontinence - Reproductive: Female Reproductive:Female: Menopausal - Musculoskeletal Musculoskeletal: Back Pain, Limited Range of Motion, Muscle Weakness, Stiffness - Integumentary Additional comments: no pathognomonoic lesions - Neurological Neurological: Numbness, Frequent Falls, Tingling, Other Visual Disturbances - Psychiatric Psychiatric: Anxiety, Confusion, Depression, Difficulty Concentrating, Irritability, Memory Loss, Panic Attacks, Suicidal Ideation, Other (pt has history of suicidal ideation, resistant depression, ECT therapy, memory loss aside from above) - Endocrine Endocrine: Increase in Ring/Shoe/Hat Size Past Patient History - Infectious Disease Hx of Infectious Diseases: None - Tetanus Immunizations Tetanus Immunization: Unknown - Past Medical History & Family History Past Medical History?: Yes - Past Social History Smoking Status: Light Smoker < 10 Cigarettes Daily Occupation: disabled Alcohol: None Drugs: Other (history of, but not active user NOW per my knowledge) Home Situation {Lives}: Alone Domestic Violence: Negative - CARDIAC Hx Hypertension: Yes - PULMONARY Hx Chronic Obstructive Pulmonary Disease (COPD): Yes - NEUROLOGICAL Hx Migraine: Yes Hx Syncope: Yes (historical) - HEENT Hx HEENT Problems: No Hx Difficulty Chewing: Yes - RENAL Hx Chronic Kidney Disease: No - ENDOCRINE/METABOLIC Hx Hyperthyroidism: Yes (partial thyroidectomy) - HEMATOLOGICAL/ONCOLOGICAL Hx Anemia: Yes Hx Blood Transfusions: Yes Hx Human Immunodeficiency Virus (HIV): Yes - INTEGUMENTARY Hx Dermatological Problems: No - MUSCULOSKELETAL/RHEUMATOLOGICAL Hx Falls: No - GASTROINTESTINAL Hx Gastritis: Yes - GENITOURINARY/GYNECOLOGICAL Hx Genitourinary Disorders: No - PSYCHIATRIC Hx Substance Use: No - SURGICAL HISTORY Hx Cholecystectomy: Yes - ANESTHESIA Hx Anesthesia: Yes Hx Anesthesia Reactions: No Hx Malignant Hyperthermia: No Meds Allergies/Adverse Reactions: Allergies Allergy/AdvReac Type Severity Reaction Status Date / Time SEA SALT Allergy Intermediate RASH Uncoded 04/29/19 14:34 Physical Exam - Constitutional Appears: Well, In Acute Distress - Head Exam Head Exam: ATRAUMATIC, NORMAL INSPECTION, NORMOCEPHALIC - Eye Exam Eye Exam: EOMI, Normal appearance, PERRL Pupil Exam: NORMAL ACCOMODATION, PERRL - ENT Exam ENT Exam: Mucous Membranes Moist, Normal Exam - Neck Exam Neck exam: Positive for: Normal Inspection - Respiratory Exam Respiratory Exam: Clear to Auscultation Bilateral Additional comments: decreased breath sounds - Cardiovascular Exam Cardiovascular Exam: REGULAR RHYTHM - GI/Abdominal Exam GI & Abdominal Exam: Normal Bowel Sounds, Soft. absent: Tenderness - Rectal Exam Rectal Exam: Deferred - Exam Speculum exam: NORMAL SPECULUM EXAM - Extremities Exam Extremities exam: Positive for: normal inspection - Back Exam Back exam: NORMAL INSPECTION - Neurological Exam Neurological exam: Alert, CN II-XII Intact, Oriented x3, Reflexes Normal - Psychiatric Exam Psychiatric exam: Normal Affect, Normal Mood - Skin Skin Exam: Dry, Intact, Normal Color, Warm Results - Vital Signs Recent Vital Signs: Last Vital Signs Temp 98.3 F 08/25/18 16:00 Pulse 81 08/25/18 16:00 Resp 20 08/25/18 16:00 BP 109/73 08/25/18 16:00 Pulse Ox 94 L 08/25/18 16:00 - Labs Result Diagrams: 08/22/18 16:20 08/22/18 16:23 Assessment & Plan (1) Dyspnea Assessment and Plan: pt had run out of her nebulizer meds and yet had not called of her doctors for an emergency refill. advised pt to be more proactive about her illness. Status: Acute (2) Thyromegaly Assessment and Plan: pt diagnosed with hyperthyroidism after last admission. no one had been managing this condition since pt had not shown up in any medical practice Status: Acute (3) COPD with acute exacerbation Assessment and Plan: though not wheezing, pt remains significantly out of breath with a PaO2 in the 50% level Status: Chronic (4) HIV (human immunodeficiency virus infection) Assessment and Plan: compliant with treatment Status: Acute (5) Hypercoagulable state Assessment and Plan: had hx of previous PE, though may have been due to immobilization after pt underwent a procedure. Pt does not remember the details but this was before my time. with her Status: Acute (6) Hyperthyroidism Assessment and Plan: an active [problem at the moment, and needs closer follow up Status: Acute (7) SKYLAR and COPD overlap syndrome Assessment and Plan: may need sleep study to mimic home conditions. Status: Acute Decision To Admit - InPatient: Physician Admission Certification:: Pt will require at least 2 midnights of acute inpatient care to allow for medications to take effect fully and prevent pt's asphyxiation from her COPD exacerbation. - . Bed Request Type: Regular Admitting Physician: Emilio Barney
--- NOTE | 2018-08-26 00:07 | CP.PCM.PN ---
Subjective - Date & Time of Evaluation Date of Evaluation: 08/25/18 Time of Evaluation: 21:15 - Subjective Subjective: Pt tolerating ambulating while inpatient, and resumed pt's neb treatments. O2 sat in the mid to higher 90s with no tachycardia present post nebs. Reviewed pt's imaging studies and of note, pt has severe cardiomegaly despite relatively controlled BP. Pt has no new complaints. a-- Noted pt's sudden decline in [id number] as well. Pt does not exercise, nor does she participate in exercise with brisk walking. Inasmuch as SKYLAR has been shown to exacerbate and make snoring and result in cardiomegaly and CHF, ordered CM to seek aproval for a CPAP machine that pt can use and take home once she is discharged. In the meantime, will send pt to follow up on various findings from 10/2017 admission which were not re-done because pt had been lost to follow up. Objective - Vital Signs/Intake and Output Vital Signs (last 24 hours): Temp Pulse Resp BP Pulse Ox 98.3 F 81 20 109/73 94 L 08/25/18 16:00 08/25/18 16:00 08/25/18 16:00 08/25/18 16:00 08/25/18 16:00 Intake and Output: 08/25/18 08/26/18 18:59 06:59 Intake Total 350 Balance 350 - Medications Medications: Current Medications Albuterol Sulfate (Albuterol 0.083% Inhal Araceli (2.5 Mg/3 Ml) Ud) 2.5 mg INH RQ6 [facility] Stop: 08/28/18 08:01 Last Admin: 08/25/18 19:40 Dose: 2.5 mg Budesonide (Pulmicort Respules) 0.5 mg INH RQ12 [facility] Last Admin: 08/25/18 19:40 Dose: 0.5 mg Clopidogrel Bisulfate (Plavix) 75 mg PO DAILY [facility] Last Admin: 08/25/18 09:23 Dose: 75 mg Emtricitabine/Tenofovir (Truvada 200 Mg-300 Mg) 1 tab PO Q24H [facility]; Protocol Last Admin: 08/25/18 13:18 Dose: 1 tab Enoxaparin Sodium (Lovenox) 40 mg SC Q12 [facility] Last Admin: 08/25/18 21:53 Dose: 40 mg Famotidine (Pepcid) 20 mg PO DAILY [facility] Last Admin: 08/25/18 09:23 Dose: 20 mg Cefepime HCl 1 gm/ Sodium (Chloride) 100 mls @ 100 mls/hr IVPB Q12H [facility]; Protocol Last Admin: 08/25/18 22:43 Dose: 100 mls/hr Raltegravir (Isentress) 400 mg PO BID [facility]; Protocol Last Admin: 08/25/18 17:15 Dose: 400 mg Rosuvastatin Calcium (Crestor) 2.5 mg PO HS [facility] Last Admin: 08/25/18 21:54 Dose: 2.5 mg Trimethoprim/Sulfamethoxazole (Bactrim Ds Tab) 1 tab PO Q12 [facility]; Protocol Last Admin: 08/25/18 21:54 Dose: 1 tab - Labs Labs: 08/22/18 16:20 08/22/18 16:23 PT 10.4 SECONDS (9.7-12.2) 08/24/18 06:34 INR 1.0 08/24/18 06:34 APTT 28.0 SECONDS (21-34) 08/24/18 06:34 - Constitutional Appears: Well, In Acute Distress, Unkempt, Older Than Stated Age, Chronically Ill - Head Exam Head Exam: ATRAUMATIC, NORMAL INSPECTION, NORMOCEPHALIC - Eye Exam Eye Exam: EOMI, Normal appearance Pupil Exam: PERRL - ENT Exam ENT Exam: Mucous Membranes Moist, Normal Exam - Neck Exam Neck Exam: Full ROM, Normal Inspection. absent: Lymphadenopathy Additional comments: + leftward deviation. There were also various nodules and enlarged lymph nodes in the subcarinal, submental, and pre-tracheal spaces, which needed elucidating as to progress. Hence pt will be busy today with varioius test. - Respiratory Exam Respiratory Exam: Decreased Breath Sounds, Clear to Ausculation Bilateral, NORMAL BREATHING PATTERN - Cardiovascular Exam Cardiovascular Exam: REGULAR RHYTHM, +S1, +S2. absent: Murmur - GI/Abdominal Exam GI & Abdominal Exam: Soft, Normal Bowel Sounds. absent: Tenderness - Rectal Exam Rectal Exam: Deferred, NORMAL INSPECTION (Advance Directive: ) - Exam Exam: NORMAL INSPECTION - Extremities Exam Extremities Exam: Full ROM, Normal Capillary Refill, Normal Inspection. absent: Joint Swelling, Pedal Edema - Back Exam Back Exam: NORMAL INSPECTION - Neurological Exam Neurological Exam: Alert, Awake, CN II-XII Intact, Normal Gait, Oriented x3 Neuro motor strength exam: Left Upper Extremity: 5, Right Upper Extremity: 5, Left Lower Extremity: 4, Right Lower Extremity: 4 - Psychiatric Exam Psychiatric exam: Normal Affect, Normal Mood - Skin Skin Exam: Dry, Intact, Normal Color, Warm Assessment and Plan (1) Dyspnea Assessment & Plan: at rest, pt not short of breath. will attempt to mimic real-world conditions via PT Status: Acute (2) Thyromegaly Assessment & Plan: pt asserts that she did not discontinue her methimazole and continues to take it. Pt's TSH at normal levels now and so are her T4, T3 levels. will continue to monitor. Status: Acute (3) COPD with acute exacerbation Assessment & Plan: probable exacerbatio of pt's COPD resulting in hypoxemia, plus not using medication via nebulizer to keep COPD controlled Status: Chronic (4) HIV (human immunodeficiency virus infection) Assessment & Plan: stable, followed by ID Status: Acute (5) SKYLAR and COPD overlap syndrome Assessment & Plan: will set for sleep study if pt has not done so yet in ofd to obtain the new CPAP machine Status: Acute
[2018-08-26] MEDS ORDERED: Sodium Chloride 0.9% 500 ML IV ONE (00:14)
[2018-08-26] MEDS: Albuterol 0.083% Inhal Sol (2.5 mg/3 mL) UD INH SCH ×4 (01:55→18:59)
[2018-08-26 05:38] LABS: % CD4 (T HELPER CELL) 22 Percent (30-61); % CD8 (SUPPRESSOR T CELL) 53 Percent (12-42); ABSOLUTE CD4 CELLS 416 Cells/mcL (490-1740); ABSOLUTE CD8 CELLS 1000 Cells/mcL (180-1170); ABSOLUTE LYMPHOCYTES 1896 Cells/mcL (850-3900); HELPER/SUPPRESSOR RATIO 0.42 Ratio (0.86-5.00)
[2018-08-26 07:16] LABS: HEMOGLOBIN 14.6 g/dL (11.0-16.0); MEAN CELL VOLUME 96.7 fL (81.0-99.0); MEAN CORPUSCULAR HEMOGLOBIN 32.1 pg (27.0-31.0); MEAN CORPUSCULAR HGB CONC 33.2 g/dL (33.0-37.0); MEAN PLATELET VOLUME 8.5 fL (7.2-11.7); RBC 4.53 Mil/uL (3.80-5.20); RED CELL DISTRIBUTION WIDTH 15.6 % (11.5-14.5); WHITE BLOOD COUNT 4.1 K/uL (4.8-10.8)
[2018-08-26] MEDS: Budesonide 0.5 mg/2 ml Inhal Susp UD INH SCH ×2 (08:47→18:59)
--- NOTE | 2018-08-26 08:49 | CP.PCM.PN ---
Subjective - Date & Time of Evaluation Date of Evaluation: 08/24/18 Time of Evaluation: 18:30 - Subjective Subjective: Pt seen and examined at bedside. Still short of breath without O2 and when ambulating. Able to tolerate po. Pt says that she didn't have transportation Objective - Vital Signs/Intake and Output Vital Signs (last 24 hours): Temp Pulse Resp BP Pulse Ox 98.1 F 71 20 136/80 95 08/26/18 00:00 08/26/18 00:00 08/26/18 00:00 08/26/18 00:00 08/26/18 00:00 Intake and Output: 08/26/18 08/26/18 06:59 18:59 Intake Total 350 Balance 350 - Medications Medications: Current Medications Albuterol Sulfate (Albuterol 0.083% Inhal Araceli (2.5 Mg/3 Ml) Ud) 2.5 mg INH RQ6 [facility] Stop: 08/28/18 08:01 Last Admin: 08/26/18 01:55 Dose: 2.5 mg Budesonide (Pulmicort Respules) 0.5 mg INH RQ12 [facility] Last Admin: 08/25/18 19:40 Dose: 0.5 mg Clopidogrel Bisulfate (Plavix) 75 mg PO DAILY [facility] Last Admin: 08/25/18 09:23 Dose: 75 mg Emtricitabine/Tenofovir (Truvada 200 Mg-300 Mg) 1 tab PO Q24H [facility]; Protocol Last Admin: 08/25/18 13:18 Dose: 1 tab Enoxaparin Sodium (Lovenox) 40 mg SC Q12 [facility] Last Admin: 08/25/18 21:53 Dose: 40 mg Famotidine (Pepcid) 20 mg PO DAILY [facility] Last Admin: 08/25/18 09:23 Dose: 20 mg Cefepime HCl 1 gm/ Sodium (Chloride) 100 mls @ 100 mls/hr IVPB Q12H [facility]; Protocol Last Admin: 08/25/18 22:43 Dose: 100 mls/hr Raltegravir (Isentress) 400 mg PO BID [facility]; Protocol Last Admin: 08/25/18 17:15 Dose: 400 mg Rosuvastatin Calcium (Crestor) 2.5 mg PO HS [facility] Last Admin: 08/25/18 21:54 Dose: 2.5 mg Trimethoprim/Sulfamethoxazole (Bactrim Ds Tab) 1 tab PO Q12 [facility]; Protocol Last Admin: 08/25/18 21:54 Dose: 1 tab - Labs Labs: 08/26/18 07:04 08/22/18 16:23 PT 10.4 SECONDS (9.7-12.2) 08/24/18 06:34 INR 1.0 08/24/18 06:34 APTT 28.0 SECONDS (21-34) 08/24/18 06:34 Assessment and Plan (1) Dyspnea Status: Acute (2) Thyromegaly Status: Acute (3) COPD with acute exacerbation Status: Chronic (4) HIV (human immunodeficiency virus infection) Status: Acute (5) SKYLAR and COPD overlap syndrome Status: Acute
[2018-08-26] MEDS: Enoxaparin 40 mg Syringe SC SCH ×2 (09:21→21:26)
[2018-08-26] MEDS: Tmp-Smz 800 mg-160 mg DS Tab PO SCH ×2 (09:21→21:26)
[2018-08-26] MEDS ORDERED: Iodixanol 320 MG/ML 100 ML BOTTLE IV ONE (11:25)
[2018-08-26] MEDS: Cefepime 1 GM in Sodium Chloride 0.9% 100 ML IVPB SCH ×2 (12:02→22:47)
[2018-08-26] MEDS: Emtricitabine-Tenofovir 200 mg-300 mg Tab PO SCH (13:14)
--- NOTE | 2018-08-26 14:41 | CT ---
Date of service: 08/26/2018 PROCEDURE: CT Chest with contrast (Pulmonary Angiogram) HISTORY: persistent hypoxemia when off O2 COMPARISON: 05/13/2017 TECHNIQUE: Axial computed tomography images were obtained of the chest in the pulmonary arterial phase of enhancement. Coronal and sagittal reformatted images were created and reviewed. Intravenous contrast dose: 100 mL Visipaque 320 Radiation dose: Total exam DLP = 638.61 mGy-cm. This CT exam was performed using one or more of the following dose reduction techniques: Automated exposure control, adjustment of the mA and/or kV according to patient size, and/or use of iterative reconstruction technique. FINDINGS: PULMONARY ARTERIES: There are no filling defects in the pulmonary arteries to suggest acute pulmonary embolism. AORTA: No acute findings. No thoracic aortic aneurysm. The main pulmonary artery is dilated no aortic atherosclerotic calcification or mural plaque present. LUNGS: The lungs are well inflated. There is patchy ground-glass attenuation in both lungs. There is mild paraseptal emphysema in the right apex. There is subsegmental atelectasis in both lower lobes. PLEURAL SPACES: No effusion or pneumothorax. HEART: Moderate cardiomegaly with left ventricular enlargement. No significant pericardial effusion. LYMPH NODES: There are interval decrease in size of bilateral axillary and mediastinal lymph nodes, and bilateral hilar lymphadenopathy. The largest prevascular lymph node measures 1.4 cm in short axis. BONES, CHEST WALL: Within normal limits for the patient's age. No fracture or destructive lesion OTHER FINDINGS: Stable 1.9 cm nodule in the left adrenal gland likely an adenoma. Stable mild thickening of the left adrenal gland. The right adrenal gland is normal. An IVC filter remains in place. Status post cholecystectomy. There is redemonstration of an enlarged multinodular left thyroid gland with retrosternal extension and mass effect on the trachea with rightward displacement of the trachea. IMPRESSION: 1. No CTA evidence for acute pulmonary embolism. 2. Improving mediastinal and bilateral hilar lymphadenopathy. 3. Moderate cardiomegaly and pulmonary hypertension. Patchy ground-glass attenuation in the both lungs may represent nonspecific infection/inflammation or mild alveolar pulmonary edema.
[2018-08-26 16:46] VITALS: RESP 20
--- NOTE | 2018-08-26 17:38 | CP.PCM.PN ---
Subjective - Date & Time of Evaluation Date of Evaluation: 08/26/18 Time of Evaluation: 08:00 - Subjective Subjective: seen on rounds ROS completed events noted labs and xrays reviewed orders signed Objective - Vital Signs/Intake and Output Vital Signs (last 24 hours): Temp Pulse Resp BP Pulse Ox 98.5 F 66 20 128/82 98 08/26/18 16:00 08/26/18 16:00 08/26/18 16:00 08/26/18 16:00 08/26/18 16:00 Intake and Output: 08/26/18 08/26/18 06:59 18:59 Intake Total 350 Balance 350 - Medications Medications: Current Medications Albuterol Sulfate (Albuterol 0.083% Inhal Araceli (2.5 Mg/3 Ml) Ud) 2.5 mg INH RQ6 [facility] Stop: 08/28/18 08:01 Last Admin: 08/26/18 14:12 Dose: 2.5 mg Budesonide (Pulmicort Respules) 0.5 mg INH RQ12 [facility] Last Admin: 08/26/18 08:47 Dose: 0.5 mg Clopidogrel Bisulfate (Plavix) 75 mg PO DAILY [facility] Last Admin: 08/26/18 09:21 Dose: 75 mg Emtricitabine/Tenofovir (Truvada 200 Mg-300 Mg) 1 tab PO Q24H [facility]; Protocol Last Admin: 08/26/18 13:14 Dose: 1 tab Enoxaparin Sodium (Lovenox) 40 mg SC Q12 [facility] Last Admin: 08/26/18 09:21 Dose: 40 mg Famotidine (Pepcid) 20 mg PO DAILY [facility] Last Admin: 08/26/18 09:21 Dose: 20 mg Cefepime HCl 1 gm/ Sodium (Chloride) 100 mls @ 100 mls/hr IVPB Q12H [facility]; Protocol Last Admin: 08/26/18 12:02 Dose: 100 mls/hr Raltegravir (Isentress) 400 mg PO BID [facility]; Protocol Last Admin: 08/26/18 17:20 Dose: 400 mg Rosuvastatin Calcium (Crestor) 2.5 mg PO HS [facility] Last Admin: 08/25/18 21:54 Dose: 2.5 mg Trimethoprim/Sulfamethoxazole (Bactrim Ds Tab) 1 tab PO Q12 [facility]; Protocol Last Admin: 08/26/18 09:21 Dose: 1 tab - Labs Labs: 08/26/18 07:04 08/22/18 16:23 PT 10.4 SECONDS (9.7-12.2) 08/24/18 06:34 INR 1.0 08/24/18 06:34 APTT 28.0 SECONDS (21-34) 08/24/18 06:34 - Constitutional Appears: Non-toxic, Chronically Ill - Head Exam Head Exam: ATRAUMATIC, NORMAL INSPECTION, NORMOCEPHALIC - Eye Exam Eye Exam: EOMI, Normal appearance, PERRL Pupil Exam: NORMAL ACCOMODATION, PERRL - ENT Exam ENT Exam: Mucous Membranes Moist, Normal Exam - Neck Exam Neck Exam: Full ROM, Normal Inspection. absent: Lymphadenopathy - Respiratory Exam Respiratory Exam: Clear to Ausculation Bilateral, NORMAL BREATHING PATTERN - Cardiovascular Exam Cardiovascular Exam: REGULAR RHYTHM, +S1, +S2. absent: Murmur - GI/Abdominal Exam GI & Abdominal Exam: Soft, Normal Bowel Sounds. absent: Tenderness - Rectal Exam Rectal Exam: Deferred - Exam Exam: NORMAL INSPECTION - Extremities Exam Extremities Exam: Full ROM, Normal Capillary Refill, Normal Inspection. absent: Joint Swelling, Pedal Edema - Back Exam Back Exam: NORMAL INSPECTION - Neurological Exam Neurological Exam: Alert, Awake, CN II-XII Intact, Normal Gait, Oriented x3 - Psychiatric Exam Psychiatric exam: Normal Affect, Normal Mood - Skin Skin Exam: Dry, Intact, Normal Color, Warm Assessment and Plan (1) Chronic congestive heart failure Status: Acute (2) Dyspnea Status: Acute (3) Hypoxia Status: Acute (4) Thyromegaly Status: Acute (5) COPD with acute exacerbation Status: Chronic (6) HIV (human immunodeficiency virus infection) Status: Acute - Assessment and Plan (Free Text) Assessment: improving slowly meds reordered consider pulm eval
[2018-08-26] MEDS: Rosuvastatin Calcium 2.5 mg Tab PO SCH (21:26)
[2018-08-27] MEDS: Albuterol 0.083% Inhal Sol (2.5 mg/3 mL) UD INH SCH ×4 (02:02→20:28)
[2018-08-27] MEDS: Budesonide 0.5 mg/2 ml Inhal Susp UD INH SCH ×2 (09:08→20:28)
[2018-08-27] MEDS: Enoxaparin 40 mg Syringe SC SCH ×2 (10:31→21:18)
[2018-08-27] MEDS: Tmp-Smz 800 mg-160 mg DS Tab PO SCH ×2 (10:31→21:19)
[2018-08-27] MEDS: Cefepime 1 GM in Sodium Chloride 0.9% 100 ML IVPB SCH ×2 (11:48→23:23)
[2018-08-27] MEDS: Emtricitabine-Tenofovir 200 mg-300 mg Tab PO SCH (13:07)
[2018-08-27] MEDS: Rosuvastatin Calcium 2.5 mg Tab PO SCH (21:19)
[2018-08-28] MEDS: Budesonide 0.5 mg/2 ml Inhal Susp UD INH SCH ×2 (08:46→20:10)
[2018-08-28] MEDS: Albuterol 0.083% Inhal Sol (2.5 mg/3 mL) UD INH SCH (08:46)
[2018-08-28] MEDS: Tmp-Smz 800 mg-160 mg DS Tab PO SCH ×2 (10:23→22:07)
[2018-08-28] MEDS: Enoxaparin 40 mg Syringe SC SCH ×2 (10:23→22:07)
[2018-08-28] MEDS: Cefepime 1 GM in Sodium Chloride 0.9% 100 ML IVPB SCH ×2 (12:29→22:34)
[2018-08-28] MEDS: Emtricitabine-Tenofovir 200 mg-300 mg Tab PO SCH (14:58)
--- NOTE | 2018-08-28 18:40 | CP.PCM.PN ---
Subjective - Date & Time of Evaluation Date of Evaluation: 08/28/18 Time of Evaluation: 08:00 - Subjective Subjective: discussed on rounds need to quit smoking, start using CPAP and weight reduction Objective - Vital Signs/Intake and Output Vital Signs (last 24 hours): Temp Pulse Resp BP Pulse Ox 98.4 F 80 20 123/81 93 L 08/28/18 17:44 08/28/18 17:44 08/28/18 17:44 08/28/18 17:44 08/28/18 17:44 Intake and Output: 08/28/18 08/28/18 06:59 18:59 Intake Total 500 600 Balance 500 600 - Medications Medications: Current Medications Budesonide (Pulmicort Respules) 0.5 mg INH RQ12 [facility] Last Admin: 08/28/18 08:46 Dose: 0.5 mg Clopidogrel Bisulfate (Plavix) 75 mg PO DAILY [facility] Last Admin: 08/28/18 10:23 Dose: 75 mg Emtricitabine/Tenofovir (Truvada 200 Mg-300 Mg) 1 tab PO Q24H [facility]; Protocol Last Admin: 08/28/18 14:58 Dose: 1 tab Enoxaparin Sodium (Lovenox) 40 mg SC Q12 [facility] Last Admin: 08/28/18 10:23 Dose: 40 mg Famotidine (Pepcid) 20 mg PO DAILY [facility] Last Admin: 08/28/18 10:23 Dose: 20 mg Cefepime HCl 1 gm/ Sodium (Chloride) 100 mls @ 100 mls/hr IVPB Q12H [facility]; Pr otocol Last Admin: 08/28/18 12:29 Dose: 100 mls/hr Raltegravir (Isentress) 400 mg PO BID [facility]; Protocol Last Admin: 08/28/18 17:54 Dose: 400 mg Rosuvastatin Calcium (Crestor) 2.5 mg PO HS [facility] Last Admin: 08/27/18 21:19 Dose: 2.5 mg Trimethoprim/Sulfamethoxazole (Bactrim Ds Tab) 1 tab PO Q12 [facility]; Protocol Last Admin: 08/28/18 10:23 Dose: 1 tab - Labs Labs: 08/26/18 07:04 08/22/18 16:23 PT 10.4 SECONDS (9.7-12.2) 08/24/18 06:34 INR 1.0 08/24/18 06:34 APTT 28.0 SECONDS (21-34) 08/24/18 06:34 - Constitutional Appears: Non-toxic, Chronically Ill - Head Exam Head Exam: ATRAUMATIC, NORMAL INSPECTION, NORMOCEPHALIC - Eye Exam Eye Exam: EOMI, Normal appearance, PERRL Pupil Exam: NORMAL ACCOMODATION, PERRL - ENT Exam ENT Exam: Mucous Membranes Moist, Normal Exam - Neck Exam Neck Exam: Full ROM, Normal Inspection. absent: Lymphadenopathy - Respiratory Exam Respiratory Exam: Decreased Breath Sounds, Prolonged Expiratory Phase, Rhonchi - Cardiovascular Exam Cardiovascular Exam: REGULAR RHYTHM, +S1, +S2. absent: Murmur - GI/Abdominal Exam GI & Abdominal Exam: Soft, Normal Bowel Sounds. absent: Tenderness - Rectal Exam Rectal Exam: Deferred - Exam Exam: NORMAL INSPECTION - Extremities Exam Extremities Exam: Full ROM, Normal Capillary Refill, Normal Inspection. absent: Joint Swelling, Pedal Edema - Back Exam Back Exam: NORMAL INSPECTION - Neurological Exam Neurological Exam: Alert, Awake, CN II-XII Intact, Normal Gait, Oriented x3 - Psychiatric Exam Psychiatric exam: Normal Affect, Normal Mood - Skin Skin Exam: Dry, Intact, Normal Color, Warm Assessment and Plan (1) Chronic congestive heart failure Status: Acute (2) Dyspnea Status: Acute (3) Hypoxia Status: Acute (4) Thyromegaly Status: Acute (5) COPD with acute exacerbation Status: Chronic (6) HIV (human immunodeficiency virus infection) Status: Acute - Assessment and Plan (Free Text) Assessment: improving exac COPD HIV viral load and CD4 cells OK needs weight loss, smoking cessation and CPAP rx going forward
[2018-08-28] MEDS: Rosuvastatin Calcium 2.5 mg Tab PO SCH (22:07)
[2018-08-29] MEDS: Budesonide 0.5 mg/2 ml Inhal Susp UD INH SCH ×2 (08:45→20:33)
[2018-08-29] MEDS: Enoxaparin 40 mg Syringe SC SCH ×2 (09:47→22:14)
[2018-08-29] MEDS: Cefepime 1 GM in Sodium Chloride 0.9% 100 ML IVPB SCH (10:30)
--- NOTE | 2018-08-29 13:21 | CARD ---
APPROVED REPORT Date of service: 08/26/2018 EXAM: Two-dimensional and M-mode echocardiogram with Doppler and color Doppler. Other Information Quality : GoodRhythm : INDICATION Dyspnea Chest Pain Syncope Congestive Heart Failure COPD new severe cardiomegaly from 11/10, hypoxia,acute coronary syndrome, smoking 2D DIMENSIONS IVSd1.1 (0.7-1.1cm)LVDd6.0 (3.9-5.9cm) PWd1.1 (0.7-1.1cm)LA [id number] (18-58mL) LVDs3.9 (2.5-4.0cm)FS (%) 34.7 % LVEF (%)63.0 (>50%)LVEF (Espino's)65.62 % IVC0.00 cm M-Mode DIMENSIONS RVDd3.08 (2.1-3.2cm)Left Atrium (MM)4.14 (2.5-4.0cm) IVSd0.96 (0.7-1.1cm)Aortic Root3.27 (2.2-3.7cm) LVDd6.12 (4.0-5.6cm)Aortic Cusp Exc.2.06 (1.5-2.0cm) PWd0.99 (0.7-1.1cm)FS (%) 36 % LVDs3.94 (2.0-3.8cm)TAPSE17.84 cm LVEF (%)64 (>50%) Mitral Valve MV E Qnswyldp81.2cm/sMV A Mbmiyzhb82.5cm/sE/A ratio1.2 TDI Lateral E' Peak V10.22cm/sMedial E' Peak V9.00cm/sE/Lateral E'8.7 E/Medial E'9.9 Tricuspid Valve TR Peak Nkifyztr153of/sTR Peak [id number] <Conclusion> Left ventricle: thickness: normal; size: normal; overall ejection fraction: 50%: diastolic filling pressures: normal Mitral valve: annulus: normal: leaflets: normal: excursion: normal; no significant trans-mitral gradient: No significant incompetence: left atrium: normal Aortic valve: leaflets: normal: excursion: normal; no significant trans-aortic gradient: No significant incompetence: aortic root: normal Right sided Structures: Pulmonary valve: normal; no significant incompetence; Tricuspid valve: normal; mild incompetence: Intra-cardiac hemodynamics: pulmonary systolic pressures: 37mmHg; central venous pressures: normal No pericardial effusion
[2018-08-29] MEDS: Emtricitabine-Tenofovir 200 mg-300 mg Tab PO SCH (13:22)
[2018-08-29] MEDS: Rosuvastatin Calcium 2.5 mg Tab PO SCH (22:15)
[2018-08-30 07:56] VITALS: BP 131/88; PULSE 60; TEMP 97.9; O2SAT 97
[2018-08-30] MEDS: Enoxaparin 40 mg Syringe SC SCH (09:27)
[2018-08-30] MEDS: Budesonide 0.5 mg/2 ml Inhal Susp UD INH SCH ×2 (09:40→20:25)
[2018-08-30] MEDS: Emtricitabine-Tenofovir 200 mg-300 mg Tab PO SCH (13:23)
--- NOTE | 2018-08-30 15:01 | CP.PCM.CON ---
History of Present Illness - History of Present Illness History of Present Illness: Reason for consultation: Shortness of breath 47-year-old female with history of COPD, hypertension, bipolar disorder, HIV, DVT status post IVC filter placement in 2014, hyperthyroidism presented to emergency room, complaining of shortness of breath, and chest pain.. Patient also complaining of nocturnal snoring and excessive sleepiness during the daytime. Patient states his breathing is better and denies any cough, denies fever chills, denies nausea vomiting denies diarrhea constipation Review of Systems - Review of Systems All systems: reviewed and no additional remarkable complaints except (Shortness of breath, nocturnal snoring and excessive sleepiness during the daytime) Past Patient History - Infectious Disease Hx of Infectious Diseases: None - Tetanus Immunizations Tetanus Immunization: Unknown - Past Medical History & Family History Past Medical History?: Yes - Past Social History Smoking Status: Light Smoker < 10 Cigarettes Daily Occupation: disabled Alcohol: None Drugs: Other (history of, but not active user NOW per my knowledge) Home Situation {Lives}: Alone Domestic Violence: Negative - CARDIAC Hx Hypertension: Yes - PULMONARY Hx Chronic Obstructive Pulmonary Disease (COPD): Yes - NEUROLOGICAL Hx Migraine: Yes Hx Syncope: Yes (historical) - HEENT Hx HEENT Problems: No Hx Difficulty Chewing: Yes - RENAL Hx Chronic Kidney Disease: No - ENDOCRINE/METABOLIC Hx Hyperthyroidism: Yes (partial thyroidectomy) - HEMATOLOGICAL/ONCOLOGICAL Hx Anemia: Yes Hx Blood Transfusions: Yes Hx Human Immunodeficiency Virus (HIV): Yes - INTEGUMENTARY Hx Dermatological Problems: No - MUSCULOSKELETAL/RHEUMATOLOGICAL Hx Falls: No - GASTROINTESTINAL Hx Gastritis: Yes - GENITOURINARY/GYNECOLOGICAL Hx Genitourinary Disorders: No - PSYCHIATRIC Hx Substance Use: No - SURGICAL HISTORY Hx Cholecystectomy: Yes - ANESTHESIA Hx Anesthesia: Yes Hx Anesthesia Reactions: No Hx Malignant Hyperthermia: No Meds Home Medications: Home Medication List Medication Instructions Recorded Confirmed Type Budesonide [Pulmicort Respules] 0.5 mg INH RQ12 neb 08/30/18 Rx Allergies/Adverse Reactions: Allergies Allergy/AdvReac Type Severity Reaction Status Date / Time SEA SALT Allergy Intermediate RASH Uncoded 08/22/18 14:34 - Medications Medications: Current Medications Budesonide (Pulmicort Respules) 0.5 mg INH RQ12 [facility] Last Admin: 08/30/18 09:40 Dose: 0.5 mg Clopidogrel Bisulfate (Plavix) 75 mg PO DAILY [facility] Last Admin: 08/30/18 09:27 Dose: 75 mg Emtricitabine/Tenofovir (Truvada 200 Mg-300 Mg) 1 tab PO Q24H [facility]; Protocol Last Admin: 08/30/18 13:23 Dose: 1 tab Enoxaparin Sodium (Lovenox) 40 mg SC Q12 [facility] Last Admin: 08/30/18 09:27 Dose: 40 mg Famotidine (Pepcid) 20 mg PO DAILY [facility] Last Admin: 08/30/18 09:27 Dose: 20 mg Raltegravir (Isentress) 400 mg PO BID [facility]; Protocol Last Admin: 08/30/18 09:29 Dose: 400 mg Rosuvastatin Calcium (Crestor) 2.5 mg PO HS [facility] Last Admin: 08/29/18 22:15 Dose: 2.5 mg Physical Exam - Head Exam Head Exam: ATRAUMATIC, NORMOCEPHALIC - ENT Exam ENT Exam: Mucous Membranes Moist - Neck Exam Neck exam: Positive for: Normal Inspection - Respiratory Exam Respiratory Exam: Decreased Breath Sounds - Cardiovascular Exam Cardiovascular Exam: REGULAR RHYTHM - GI/Abdominal Exam GI & Abdominal Exam: Normal Bowel Sounds, Soft - Extremities Exam Extremities exam: Positive for: pedal edema Results - Vital Signs Recent Vital Signs: Last Vital Signs Temp 97.9 F 08/30/18 07:00 Pulse 60 08/30/18 07:00 Resp 20 08/30/18 07:00 BP 131/88 08/30/18 07:00 Pulse Ox 97 08/30/18 07:00 - Labs Result Diagrams: 08/26/18 07:04 08/22/18 16:23 Assessment & Plan (1) COPD with acute exacerbation Status: Chronic Comment: Patient started on Brovana and nebulizer treatment. Continue budesonide. Sleep study as outpatient. Follow-up ABG. BiPAP at night (2) Hypoxia Status: Acute (3) SKYLAR and COPD overlap syndrome Status: Acute
[2018-08-30] MEDS ORDERED: Albuterol-Ipratrop 3 mg / 0.5 (3 ml) UD INH PRN (20:00)
[2018-08-30] MEDS ORDERED: Arformoterol 15 mcg/2 ml Inh Sol INH SCH (22:00)
== END 2018-08-30 21:31 | disposition home or self-care (01) | DRG 191 ==
LOC: C.ER 13:58 → C.9E 17:46 → EEVIPCON 17:46 → C.3T 19:53
PROVIDERS: ADMIT Family Medicine; ATTEND Family Medicine
DX: J44.1 Chronic obstructive pulmonary disease with (acute) exacerbation (principal); E66.2 Morbid (severe) obesity with alveolar hypoventilation; M35.1 Other overlap syndromes; D68.59 Other primary thrombophilia; B20 Human immunodeficiency virus [HIV] disease; R09.02 Hypoxemia; I11.0 Hypertensive heart disease with heart failure; G47.33 Obstructive sleep apnea (adult) (pediatric); Z91.19 Patient's noncompliance with other medical treatment and regimen; Z99.81 Dependence on supplemental oxygen; F17.210 Nicotine dependence, cigarettes, uncomplicated; I50.9 Heart failure, unspecified; F31.9 Bipolar disorder, unspecified; Z86.711 Personal history of pulmonary embolism; Z95.828 Presence of other vascular implants and grafts; E05.90 Thyrotoxicosis, unspecified without thyrotoxic crisis or storm